=== PATIENT | female | born 1940 | race Caucasian/White ===

== ENCOUNTER → 2024-02-27 | Outpatient (CLI) | payer MEDICARE, OTHER ==
--- NOTE | 2024-02-27 16:57 | CA ---
Transthoracic Echo Report Name: Indy Blum Age: 83 Gender: F : 1940 Exam Date: 02/27/2024 16:15 Exam Location: [facility] Ht (in): 66 Wt (lb): 145 Ordering Physician: Kayce Babin MD Attending/Referring Phys: Replenisher Mayuri Schneider RDCS Procedure CPT: Indications: Z01.818 Cardiac Hx: Technical Quality: Fair Contrast 1: Total Dose (mL): Contrast 2: Total Dose (mL): MEASUREMENTS (Male / Female) Normal Values 2D ECHO LV Diastolic Diameter PLAX 4.7 cm 4.2 - 5.9 / 3.9 - 5.3 cm LV Systolic Diameter PLAX 3.2 cm IVS Diastolic Thickness 1.1 cm 0.6 - 1.0 / 0.6 - 0.9 cm LVPW Diastolic Thickness 1.2 cm 0.6 - 1.0 / 0.6 - 0.9 cm LV Relative Wall Thickness 0.5 RV Internal Dim ED PLAX 2.0 cm LVOT Diameter 1.8 cm LA Systolic Diameter LX 3.8 cm 3.0 - 4.0 / 2.7 - 3.8 cm LV Diastolic Volume MOD BP 20.5 cm??? 67 - 155 / 56 - 104 cm??? LV Systolic Volume MOD BP 8.5 cm??? 22 - 58 / 19 - 49 cm??? LV Ejection Fraction MOD BP 58.5 % >= 55 % LV Cardiac Index MOD BP 572.3 cm???/min???m??? LV Diastolic Volume MOD 4C 27.3 cm??? LV Systolic Volume MOD 4C 9.3 cm??? LV Ejection Fraction MOD 4C 66.2 % LV Cardiac Index MOD 4C 865.5 cm???/min???m??? LV Diastolic Length 4C 5.4 cm LV Systolic Length 4C 4.2 cm LV Diastolic Volume MOD 2C 13.8 cm??? LV Systolic Volume MOD 2C 7.4 cm??? LV Ejection Fraction MOD 2C 46.2 % LV Cardiac Index MOD 2C 304.4 cm???/min???m??? LV Diastolic Length 2C 4.8 cm LV Systolic Length 2C 4.5 cm M-MODE Aortic Root Diameter MM 3.8 cm LA Systolic Diameter MM 2.3 cm LA Ao Ratio MM 0.6 AV Cusp Separation MM 1.1 cm DOPPLER AV Peak Velocity 162.3 cm/s AV Peak Gradient 10.5 mmHg AV Mean Velocity 108.6 cm/s AV Mean Gradient 5.3 mmHg AV Velocity Time Integral 31.1 cm AI Peak Velocity 438.6 cm/s AI Peak Gradient 77.0 mmHg AI Pressure Half Time 858.7 ms LVOT Peak Velocity 115.3 cm/s LVOT Peak Gradient 5.3 mmHg LVOT Velocity Time Integral 23.7 cm LVOT Stroke Volume 62.9 cm??? LVOT Stroke Volume Index 36.0 ml/m??? LVOT Cardiac Index 3007.4 cm???/min???m??? AV Area Cont Eq vti 2.0 cm??? AV Area Cont Eq pk 1.9 cm??? Mitral E Point Velocity 73.4 cm/s Mitral A Point Velocity 116.6 cm/s Mitral E to A Ratio 0.6 MV Deceleration Time 285.6 ms MV E' Velocity 4.0 cm/s Mitral E to MV E' Ratio 18.5 TR Peak Velocity 276.4 cm/s TR Peak Gradient 30.6 mmHg Right Ventricular Systolic Press 40.6 mmHg FINDINGS Left Ventricle Left ventricular ejection fraction is estimated at 55-60 %. Mildly increased septal wall thickness. Mildly increased posterior wall thickness. Normal left ventricular systolic function with no obvious regional wall motion abnormalities. Left ventricular cavity size normal. Right Ventricle Normal right ventricular size and function. Mild pulmonary hypertension. Right Atrium Normal right atrial size. Left Atrium Normal left atrial size. Mitral Valve Structurally normal mitral valve. Trace to mild mitral regurgitation. No mitral stenosis. Moderate mitral annular calcification. Aortic Valve Trileaflet aortic valve. Diffuse thickening (sclerosis) of the aortic valve cusps without reduced excursion. Mild aortic regurgitation. Tricuspid Valve Structurally normal tricuspid valve. Mild tricuspid regurgitation. No tricuspid stenosis. Pulmonic Valve Structurally normal pulmonic valve. Trace pulmonic regurgitation. No pulmonic stenosis. Pericardium No pericardial or pleural effusion. Aorta Mild aortic dilatation at the level of the sinuses of valsalva (root). CONCLUSIONS Normal LV systolic function with an ejection fraction of 55-60% Mitral annular calcification Mild aortic regurgitation Previewed by: Dr. Michael Charles MD (Electronically Signed) Final Date: 27 February 2024 16:56
== END | disposition home or self-care (01) ==
LOC: RADECHMAIN 15:58
PROVIDERS: ATTEND Internal Medicine Hematology & Oncology
DX: Z01.818 Encounter for other preprocedural examination (principal); I34.81 Nonrheumatic mitral (valve) annulus calcification; I35.1 Nonrheumatic aortic (valve) insufficiency
CPT/HCPCS: 93306

== ENCOUNTER 2024-03-14 22:23 | Observation (INO) | payer MEDICARE, OTHER ==
[2024-03-14 23:01] LABS: Glucose,Whole Blood 145 mg/dL (70-110)
[2024-03-14] MEDS: SODIUM CHLORIDE 0.9% 1,000 ML IV STA (23:01)
--- NOTE | 2024-03-14 23:05 | ED ---
Nausea/Vomiting/Diarrhea HPI - General Chief complaint: Nausea/Vomiting/Diarrhea Stated complaint: Dehydration Time Seen by Provider: 03/14/24 23:04 Source: patient, family, RN notes reviewed Mode of arrival: wheelchair Limitations: no limitations - History of Present Illness Initial comments: Patient is an 83-year-old female presenting to the ER for evaluation of nausea, vomiting and diarrhea. 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 She is following up with Dr. Babin. Patient reports for the past couple of days she has felt extremely nauseous, lightheaded and dizzy. She states she has been unable to keep solids or liquids down for the past 24 to 48 hours. She also reports diarrhea which is made her bottom sore and she has been using clint. She has tried taking [id number] Zofran without relief. Patient is concerned she is dehydrated. Patient was instructed to come to the ER by Dr. Babin for evaluation. Patient denies any fevers, chills, chest pain, shortness of breath, abdominal pain, urinary complaints or peripheral edema. - Related Data Allergies Allergy/AdvReac Type Severity Reaction Status Date / Time codeine Allergy Rash/Hives Verified 03/14/24 22:30 Penicillins Allergy Rash/Hives Verified 03/14/24 22:30 Review of Systems ROS Statement: Those systems with pertinent positive or pertinent negative responses have been documented in the HPI. ROS Other: All systems not noted in ROS Statement are negative. Past Medical History Past Medical History: Cancer, Diabetes Mellitus, Hypertension Additional Past Medical History / Comment(s): lymphoma, History of Any Multi-Drug Resistant Organisms: None Reported Past Surgical History: Appendectomy Additional Past Surgical History / Comment(s): cateract both eyes,repaired AAA, Past Psychological History: No Psychological Hx Reported Smoking Status: Former smoker Past Alcohol Use History: None Reported Past Drug Use History: None Reported General Exam Limitations: no limitations General appearance: alert, in no apparent distress Respiratory exam: Present: normal lung sounds bilaterally. Absent: respiratory distress, wheezes, rales, rhonchi, stridor Cardiovascular Exam: Present: regular rate, normal rhythm, normal heart sounds. Absent: systolic murmur, diastolic murmur, rubs, gallop, clicks GI/Abdominal exam: Present: soft, normal bowel sounds. Absent: distended, tenderness, guarding, rebound, rigid Neurological exam: Present: alert, oriented X3, CN II-XII intact Skin exam: Present: warm, dry, intact, normal color. Absent: rash Course Vital Signs 03/14/24 03/14/24 03/15/24 22:24 23:15 01:34 Temperature 97.8 F Pulse Rate 85 83 91 Respiratory 17 Rate Blood Pressure 88/65 110/73 107/71 O2 Sat by Pulse 99 Oximetry - Reevaluation(s) Reevaluation #1: 03/15/24 00:01 Case discussed with [facility], Dr. Arango, for admission. Medical Decision Making - Medical Decision Making Was pt. sent in by a medical professional or institution (, PA, NUCLEAR EQUIPMENT OPERATOR, urgent care, hospital, or skilled nursing...) When possible be specific @ -Patient sent in by Dr. Babin for evaluation of nausea, vomiting and diarrhea. Did you speak to anyone other than the patient for history (EMS, parent, family, police, friend...)? What history was obtained from this source @ -No Did you review nursing and triage notes (agree or disagree)? Why? @ -I reviewed and agree with nursing and triage notes Were old charts reviewed (outside hosp., previous admission, EMS record, old EKG, old radiological studies, urgent care reports/EKG's, skilled nursing records)? Report findings @ -No old charts were reviewed Differential Diagnosis (chest pain, altered mental status, abdominal pain women, abdominal pain men, vaginal bleeding, weakness, fever, dyspnea, syncope, headache, dizziness, GI bleed, back pain, seizure, CVA, palpatations, mental health, musculoskeletal)? @ -Gastritis, cholecystitis, cannabis hyperemesis syndrome, pancreatitis, gastroenteritis, viral illness, diverticulitis, colitis, Crohn's disease, ulcerative colitis, IBS processes, to be all-inclusive EKG interpreted by me (3pts min.). @ -As above X-rays interpreted by me (1pt min.). @ -None done CT interpreted by me (1pt min.). @ -None done U/S interpreted by me (1pt. min.). @ -None done What testing was considered but not performed or refused? (CT, X-rays, U/S, labs)? Why? @ -Imaging deferred at this time as patient has no focal abdominal tenderness. Patient is agreeable. This was also discussed with Dr. Babin. What meds were considered but not given or refused? Why? @ -None Did you discuss the management of the patient with other professionals (professionals i.e. , PA, NUCLEAR EQUIPMENT OPERATOR, lab, RT, psych nurse, web content & social media manager, manager corporate communications, teacher, appeals officer, pillowcase folder)? Give summary @ -Admission was discussed with [facility], Dr. Arango. Was smoking cessation discussed for >3mins.? @ -No Was critical care preformed (if so, how long)? @ -No Were there social determinants of health that impacted care today? How? (Homelessness, low income, unemployed, alcoholism, drug addiction, transportation, low edu. Level, literacy, decrease access to med. care, intermediate, rehab)? @ -No Was there de-escalation of care discussed even if they declined (Discuss DNR or withdrawal of care, Hospice)? DNR status @ -No What co-morbidities impacted this encounter? (DM, HTN, Smoking, COPD, CAD, Cancer, CVA, ARF, Chemo, Hep., AIDS, mental health diagnosis, sleep apnea, morbid obesity)? @ -Cancer currently on chemotherapy Was patient admitted / discharged? Hospital course, mention meds given and route, prescriptions, significant lab abnormalities, going to OR and other pertinent info. @ -Admitted. 83-year-old female presented to ER for evaluation of nausea, vomiting diarrhea. Patient was sent in by oncology, Dr. Babin as she recently started chemotherapy on 03-11-2024. Upon rooming, history and physical exam completed. Patient is hypotensive at 88/65 vitals otherwise stable. There is no abdominal tenderness on exam. Normal bowel sounds with no rebound or guarding. CBC unimpressive. Sodium 135, potassium 4.3, chloride 102, carbon dioxide 19. JACKSON with a BUN of 43, creatinine 1.53 with a GFR of 31. Lactic of 3.2 for which patient received 2 L IV fluid bolus. AST 124, Alt 47, amylase 222, lipase 758 could be due to chemotherapy or dehydration. Viral swabs negative. C. difficile negative. Admission was considered and discussed with Dr. Arango, [facility], for IV hydration. Oncology on consult. Patient given IV Zofran, 2 L IV fluid bolus and started on maintenance fluid at 100 cc/h. Patient is agreeable for admission. Case discussed with the attending, Dr. Deluna. Undiagnosed new problem with uncertain prognosis? @ -No Drug Therapy requiring intensive monitoring for toxicity (Heparin, Nitro, Insulin, Cardizem)? @ -No Were any procedures done? @ -No Diagnosis/symptom? @ -JACKSON/nausea,vomiting,diarrhea Acute, or Chronic, or Acute on Chronic? @ -Acute Uncomplicated (without systemic symptoms) or Complicated (systemic symptoms)? @ -Complicated Side effects of treatment? @ -No Exacerbation, Progression, or Severe Exacerbation? @ -No Poses a threat to life or bodily function? How? (Chest pain, [place], [place], pneumonia, PE, COPD, DKA, ARF, appy, cholecystitis, CVA, Diverticulitis, Homicidal, Suicid al, threat to staff... and all critical care pts) @ -Yes, malignancy is life-threatening. - Lab Data Result diagrams: 03/14/24 22:45 03/14/24 22:45 Lab Results 03/14/24 03/14/24 03/14/24 Range/Units 22:45 22:45 22:45 WBC 3.8 (3.8-10.6) k/uL RBC 4.72 (3.80-5.40) m/uL Hgb 14.1 (11.4-16.0) gm/dL Hct 42.9 (34.0-46.0) % MCV 90.9 (80.0-100.0) fL MCH 29.8 (25.0-35.0) pg MCHC 32.8 (31.0-37.0) g/dL RDW 14.7 (11.5-15.5) % Plt Count 244 (150-450) k/uL MPV 7.8 Neutrophils % 80 % Lymphocytes % 16 % Monocytes % 1 % Eosinophils % 1 % Basophils % 1 % Neutrophils # 3.1 (1.3-7.7) k/uL Lymphocytes # 0.6 L (1.0-4.8) k/uL Monocytes # 0.1 (0-1.0) k/uL Eosinophils # 0.0 (0-0.7) k/uL Basophils # 0.0 (0-0.2) k/uL Sodium 135 L (137-145) mmol/L Potassium 4.3 (3.5-5.1) mmol/L Chloride 102 (98-107) mmol/L Carbon Dioxide 19 L (22-30) mmol/L Anion Gap 14 mmol/L BUN 43 H (7-17) mg/dL Creatinine 1.53 H (0.52-1.04) mg/dL Est GFR (CKD-EPI)AfAm 36 (>60 ml/min/1.73 sqM) Est GFR (CKD-EPI)NonAf 31 (>60 ml/min/1.73 sqM) Glucose 143 H (74-99) mg/dL POC Glucose (mg/dL) (70-110) mg/dL POC Glu Senior Budget Analyst ID Plasma Lactic Acid Zion 3.2 H* (0.7-2.0) mmol/L Calcium 8.9 (8.4-10.2) mg/dL Total Bilirubin 0.5 (0.2-1.3) mg/dL AST 124 H (14-36) U/L ALT 47 H (4-34) U/L Alkaline Phosphatase 90 (38-126) U/L Total Protein 6.8 (6.3-8.2) g/dL Albumin 3.9 (3.5-5.0) g/dL Amylase (30-110) U/L Lipase (23-300) U/L Influenza Type A (PCR) (Not Detectd) Influenza Type B (PCR) (Not Detectd) RSV (PCR) (Not Detectd) SARS-CoV-2 (PCR) (Not Detectd) 03/14/24 03/14/24 03/14/24 Range/Units 22:45 23:00 23:16 WBC (3.8-10.6) k/uL RBC (3.80-5.40) m/uL Hgb (11.4-16.0) gm/dL Hct (34.0-46.0) % MCV (80.0-100.0) fL MCH (25.0-35.0) pg MCHC (31.0-37.0) g/dL RDW (11.5-15.5) % Plt Count (150-450) k/uL MPV Neutrophils % % Lymphocytes % % Monocytes % % Eosinophils % % Basophils % % Neutrophils # (1.3-7.7) k/uL Lymphocytes # (1.0-4.8) k/uL Monocytes # (0-1.0) k/uL Eosinophils # (0-0.7) k/uL Basophils # (0-0.2) k/uL Sodium (137-145) mmol/L Potassium (3.5-5.1) mmol/L Chloride (98-107) mmol/L Carbon Dioxide (22-30) mmol/L Anion Gap mmol/L BUN (7-17) mg/dL Creatinine (0.52-1.04) mg/dL Est GFR (CKD-EPI)AfAm (>60 ml/min/1.73 sqM) Est GFR (CKD-EPI)NonAf (>60 ml/min/1.73 sqM) Glucose (74-99) mg/dL POC Glucose (mg/dL) 145 H (70-110) mg/dL POC Glu Senior Budget Analyst ID Jeff José Plasma Lactic Acid Zion (0.7-2.0) mmol/L Calcium (8.4-10.2) mg/dL Total Bilirubin (0.2-1.3) mg/dL AST (14-36) U/L ALT (4-34) U/L Alkaline Phosphatase (38-126) U/L Total Protein (6.3-8.2) g/dL Albumin (3.5-5.0) g/dL Amylase 222 H (30-110) U/L Lipase 758 H (23-300) U/L Influenza Type A (PCR) Not Detected (Not Detectd) Influenza Type B (PCR) Not Detected (Not Detectd) RSV (PCR) Not Detected (Not Detectd) SARS-CoV-2 (PCR) Not Detected (Not Detectd) - EKG Data -: EKG Interpreted by [place] EKG Comments: EKG taken at 23: 16 showing a sinus rhythm. No acute ST segment or T wave abnormalities. Normal axis. Ventricular rate 84, AR interval 140, QRS duration 76, QT/QTc 371/412. Disposition Clinical Impression: JACKSON (acute kidney injury) Disposition: ADMITTED IP TO THIS HOSP Condition: Stable Time of Disposition: 00:03
[2024-03-14] MEDS: ONDANSETRON 4 MG/2 ML VIAL IVP STA (23:12)
[2024-03-14 23:13] LABS: ALT 47 U/L (4-34); AST 124 U/L (14-36); African American GFR (CKD) 36 (>60 ml/min/1.73 sqM); Albumin 3.9 g/dL (3.5-5.0); Alkaline Phosphatase 90 U/L (38-126); Anion Gap 14 mmol/L; Blood Urea Nitrogen 43 mg/dL (7-17); Calcium 8.9 mg/dL (8.4-10.2); Carbon Dioxide 19 mmol/L (22-30); Chloride 102 mmol/L (98-107); Glucose 143 mg/dL (74-99); Non-African American GFR(CKD) 31 (>60 ml/min/1.73 sqM); Potassium 4.3 mmol/L (3.5-5.1); Sodium 135 mmol/L (137-145); Total Bilirubin 0.5 mg/dL (0.2-1.3); Total Protein 6.8 g/dL (6.3-8.2)
[2024-03-14] MEDS: SODIUM CHLORIDE 0.9% 1,000 ML IV ONE (23:14)
[2024-03-14 23:20] LABS: Basophils % (A) 1 %; Eosinophils % (A) 1 %; HCT 42.9 % (34.0-46.0); HGB 14.1 gm/dL (11.4-16.0); Lymphocytes # (A) 0.6 k/uL (1.0-4.8); Lymphocytes % (A) 16 %; MCH 29.8 pg (25.0-35.0); MCHC 32.8 g/dL (31.0-37.0); MCV 90.9 fL (80.0-100.0); Mean Platelet Volume 7.8; Monocytes # (A) 0.1 k/uL (0-1.0); Monocytes % (A) 1 %; Neutrophils # (A) 3.1 k/uL (1.3-7.7); Neutrophils % (A) 80 %; Platelet Count 244 k/uL (150-450); RBC 4.72 m/uL (3.80-5.40); RDW 14.7 % (11.5-15.5); WBC 3.8 k/uL (3.8-10.6)
[2024-03-14] MEDS ORDERED: NALOXONE 0.4 MG/ML 1 ML VIAL IV PRN (23:56)
[2024-03-15] MEDS: SODIUM CHLORIDE 0.9% 1,000 ML IV SCH (00:25)
[2024-03-15 01:22] LABS: Amylase 222 U/L (30-110); Lipase 758 U/L (23-300)
[2024-03-15] MEDS: ACETAMINOPHEN TAB 325 MG TAB PO PRN (03:18)
--- NOTE | 2024-03-15 07:17 | P.HPIM ---
History of Present Illness Patient is a pleasant 83 years old female with past medical history of nasal cancer, she follows up with Dr. Babin, she started her first chemotherapy of 1 day duration on 03 days ago on 03/11 This is followed by diarrhea of 1 day duration all day long yesterday, she tried little diet and she threw up right away, no abdominal pain, Because of the frequent diarrhea she has some excoriation in her skin and some little blood in it from the skin as the patient and daughter at bedside explained. This morning diarrhea slowed down so far. She denies any chest pain or dyspnea or coughing. No urinary complaint. Gait is normal for her She gets sometimes headache She denies smoking alcohol or illicit drugs Patient is afebrile and hemodynamically stable CBC, is unremarkable. Creatinine slightly elevated of 1.5 Liver enzymes mildly elevated Lipase mildly elevated but no suspicion ofPancreatitis EKG showing sinus rhythm at [address]-T changes, QTc 412 In emergency room patient received 2 L of normal saline and then continued at 100 mL/h Review of Systems Review of systems CONSTITUTIONAL: No fever, no malaise, no fatigue. HEENT: No recent visual problems or hearing problems. Denied any sore throat. CARDIOVASCULAR: No orthopnea, PND, no palpitations, no syncope. PULMONARY: No shortness of breath, no cough, no hemoptysis. GASTROINTESTINAL: no nausea, no vomiting, no abdominal pain. Normoactive bowel sounds. NEUROLOGICAL: No headaches, no weakness, no numbness. HEMATOLOGICAL: Denies any bleeding or petechiae. GENITOURINARY: Denies any burning micturition, frequency, or urgency. MUSCULOSKELETAL/RHEUMATOLOGICAL: Denies any joint pain, swelling, or any muscle pain. ENDOCRINE: Denies any polyuria or polydipsia. Past Medical History Past Medical History: Cancer, Diabetes Mellitus, Hypertension Additional Past Medical History / Comment(s): lymphoma, History of Any Multi-Drug Resistant Organisms: None Reported Past Surgical History: Appendectomy Additional Past Surgical History / Comment(s): cateract both eyes,repaired AAA, Past Psychological History: No Psychological Hx Reported Smoking Status: Former smoker Past Alcohol Use History: None Reported Past Drug Use History: None Reported Medications and Allergies Allergies Allergy/AdvReac Type Severity Reaction Status Date / Time codeine Allergy Rash/Hives Verified 03/14/24 22:30 Penicillins Allergy Rash/Hives Verified 03/14/24 22:30 Physical Exam Vitals: Vital Signs Temp Pulse Resp BP Pulse Ox 03/15/24 06:30 88 17 104/73 96 03/15/24 04:54 88 18 104/75 96 03/15/24 03:20 98.1 F 91 18 98/67 95 03/15/24 01:34 91 107/71 03/14/24 23:15 83 110/73 03/14/24 22:24 97.8 F 85 17 88/65 99 Intake and Output 03/14/24 03/15/24 03/15/24 22:59 06:59 14:59 Other: Weight 64.864 kg GENERAL: The patient is alert and oriented x3, not in any acute distress. Well developed, well nourished. HEENT: Pupils are round and equally reacting to light. EOMI. No scleral icterus. No conjunctival pallor. Normocephalic, atraumatic. No pharyngeal erythema. No thyromegaly. CARDIOVASCULAR: S1 and S2 present. No murmurs, rubs, or gallops. PULMONARY: Chest is clear to auscultation, no wheezing , no crackles. ABDOMEN: Soft, nontender, nondistended, normoactive bowel sounds. No palpable organomegaly. MUSCULOSKELETAL: No joint swelling or deformity. EXTREMITIES: No cyanosis, clubbing, or pedal edema. NEUROLOGICAL: Gross neurological examination did not reveal any focal deficits. SKIN: No rashes. no petechiae. Results CBC & Chem 7: 03/14/24 22:45 03/14/24 22:45 Labs: Abnormal Lab Results - Last 24 Hours (Table) 03/14/24 03/14/24 03/14/24 Range/Units 22:45 22:45 22:45 Lymphocytes # 0.6 L (1.0-4.8) k/uL Sodium 135 L (137-145) mmol/L Carbon Dioxide 19 L (22-30) mmol/L BUN 43 H (7-17) mg/dL Creatinine 1.53 H (0.52-1.04) mg/dL Glucose 143 H (74-99) mg/dL POC Glucose (mg/dL) (70-110) mg/dL Plasma Lactic Acid Zion 3.2 H* (0.7-2.0) mmol/L AST 124 H (14-36) U/L ALT 47 H (4-34) U/L Amylase (30-110) U/L Lipase (23-300) U/L 03/14/24 03/14/24 Range/Units 22:45 23:00 Lymphocytes # (1.0-4.8) k/uL Sodium (137-145) mmol/L Carbon Dioxide (22-30) mmol/L BUN (7-17) mg/dL Creatinine (0.52-1.04) mg/dL Glucose (74-99) mg/dL POC Glucose (mg/dL) 145 H (70-110) mg/dL Plasma Lactic Acid Zion (0.7-2.0) mmol/L AST (14-36) U/L ALT (4-34) U/L Amylase 222 H (30-110) U/L Lipase 758 H (23-300) U/L Assessment and Plan Assessment: Possible acute gastroenteritis and diarrhea, chemotherapy related. The suspicion of C. difficile is low but not entirely excluded Nasal cancer s/p first chemotherapy on 03/11 at Acute kidney injury Dehydration secondary to above Mild transaminitis History of AAA, follow-up with song and dance performer as an outpatient, not an active issue Elevated lactic acid came back to normal Plan: Continue with IV hydration, normal saline at 75 mL/h Follow-up creatinine Check for C. difficile Consult hematology/oncology team Labs and medication were reviewed.. Continue same treatment. Continue with symptomatic treatment. Resume home medication. Monitor labs and vitals. DVT and GI prophylaxis. Further recommendations as per clinical course of the patient DVT prophylaxis: Subcutaneous heparin GI Prophylaxis: Pepcid Prognosis is guarded
[2024-03-15] MEDS: FAMOTIDINE 20 MG/2 ML VIAL IV SCH (08:57)
[2024-03-15] MEDS: HEPARIN SODIUM,PORCINE 5,000 UNIT/ML 1 ML VIAL SQ SCH (08:57)
[2024-03-15 13:29] LABS: ALT 38 U/L (4-34); AST 93 U/L (14-36); African American GFR (CKD) 61 (>60 ml/min/1.73 sqM); Albumin/Globulin Ratio 1.2; Alkaline Phosphatase 78 U/L (38-126); Anion Gap 11 mmol/L; Blood Urea Nitrogen 32 mg/dL (7-17); Carbon Dioxide 16 mmol/L (22-30); Chloride 111 mmol/L (98-107); Globulin 2.6 g/dL; Glucose 114 mg/dL (74-99); Non-African American GFR(CKD) 53 (>60 ml/min/1.73 sqM); Phosphorus 3.1 mg/dL (2.5-4.5); Sodium 138 mmol/L (137-145); Total Bilirubin 0.4 mg/dL (0.2-1.3); Total Protein 5.6 g/dL (6.3-8.2); Uric Acid 7.1 mg/dL (3.7-7.4)
[2024-03-15] MEDS: ONDANSETRON 4 MG/2 ML VIAL IVP PRN (13:43)
[2024-03-15] MEDS: CHOLESTYRAMINE (WITH SUGAR) 4 GM PACKET PO SCH (15:05)
[2024-03-15] MEDS: LOPERAMIDE 2 MG CAP PO PRN (17:35)
--- NOTE | 2024-03-15 20:54 | P.CONS ---
History of Present Illness - Reason for Consult Consult date: 03/15/24 n/v/d, JACKSON Requesting physician: So Foley - Chief Complaint n/v/d - History of Present Illness Patient is a 83 year old female with a history of lymphoma, who follows with Dr. Babin. She initially presented with enlarging right nasal mass for about 6 weeks duration, she had CT facial bone on 01/15/2024 which showed 3.9x2.4x2.9 cm mass along right nasal soft tissue extending into right nasal cavity. She was then referred to Dr Melendez, and initial biopsy was not diagnostic. 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 On 02/19/2024, she had a PET scan showed suspicious uptake in the mass seen on CT, otherwise negative. Ideally systemic chemo and radiation are considered, systemic therapy is L asparaginase based which could be associated with significant toxicities in elderly people,she is however,physically very fit and active. The other option would be just radiation therapy. After further discussion, current plan is 2 cycles of L asparaginase+oxaliplatin/gemzar followed by radiation and then 2 more cycles of chemo, if pt tolerates well. S/p cycle 1, day 1 of Oncaspar/oxaliplatin/gemzar on 03/11/24 Patient reports yesterday she began having diarrhea and nausea and associated decreased oral intake causing her to present to the ER for further evaluation. Diarrhea has since resolved, but did have 1 episode of n/v/d after eating a small lunch. Denies abd pain, fever and chills. Labs reviewed, WBC 3.8, ANC 3.1, hemoglobin 14.1, platelets 244,000. Creatinine elevated at 1.53, GFR 31. Lactic acid was also noted to be elevated at 3.2, today 1.9. Bilirubin 0.5, AST 124, ALT 47, ALP 90. Amylase 222, lipase 758. Repeat CMP today showing improvement in LFTs and kidney function. Patient was given 2 L saline bolus in the ER and continues on continuous IV hydration. Patient is afebrile, 96% on room air. C. difficile and viral panel negative. Review of Systems 10 point ROS is negative except as stated in the HPI Past Medical History Past Medical History: Cancer, Diabetes Mellitus, Hypertension Additional Past Medical History / Comment(s): lymphoma, History of Any Multi-Drug Resistant Organisms: None Reported Past Surgical History: Appendectomy Additional Past Surgical History / Comment(s): cateract both eyes,repaired AAA, Past Psychological History: No Psychological Hx Reported Smoking Status: Former smoker Past Alcohol Use History: None Reported Past Drug Use History: None Reported - Past Family History Mother Family Medical History: Cancer Additional Family Medical History / Comment(s): breast cancer Father Family Medical History: Hypertension Additional Family Medical History / Comment(s): cataracts Son(s) Family Medical History: Cancer Additional Family Medical History / Comment(s): tonsil cancer Medications and Allergies Home Medications Medication Instructions Recorded Confirmed Type Aspirin 81 mg PO DAILY 03/15/24 03/15/24 History Azelastine HCl [Astelin Nasal 1 spray EA NOSTRIL HS PRN 03/15/24 03/15/24 History [place]] Cholecalciferol [Vitamin D3 (10 10 mcg PO DAILY 03/15/24 03/15/24 History Mcg = 400 Iu)] Eye Health Complex 1 tab PO BID 03/15/24 03/15/24 History Healthy Hair & Nails Complete 1 tab PO DAILY 03/15/24 03/15/24 History Linagliptin [Tradjenta] 5 mg PO DAILY 03/15/24 03/15/24 History Losartan Potassium [Cozaar] 100 mg PO DAILY 03/15/24 03/15/24 History Metoprolol Tartrate [Lopressor] 25 mg PO DAILY 03/15/24 03/15/24 History Omeprazole [PriLOSEC] 40 mg PO DAILY 03/15/24 03/15/24 History Ondansetron [Zofran] 4 - 8 mg PO Q4H PRN MDD 8 tablets 03/15/24 03/15/24 History Allergies Allergy/AdvReac Type Severity Reaction Status Date / Time codeine Allergy Rash/Hives Verified 03/15/24 07:56 Penicillins Allergy Rash/Hives Verified 03/15/24 07:56 Physical Exam Vitals: Vital Signs Temp Pulse Pulse Resp BP BP Pulse Ox 03/15/24 08:20 98 F 87 16 106/77 96 03/15/24 08:00 98.7 F 79 110/71 96 03/15/24 06:30 88 17 104/73 96 03/15/24 04:54 88 18 104/75 96 03/15/24 03:20 98.1 F 91 18 98/67 95 03/15/24 01:34 91 107/71 03/14/24 23:15 83 110/73 03/14/24 22:24 97.8 F 85 17 88/65 99 Intake and Output 03/14/24 03/15/24 03/15/24 22:59 06:59 14:59 Other: Weight 64.864 kg - Constitutional General appearance: no acute distress - EENT Eyes: anicteric sclerae, EOMI ENT: hearing grossly normal - Respiratory breathing is even and unlabored - Cardiovascular well perfused - Gastrointestinal General gastrointestinal: soft, no tenderness - Integumentary Integumentary: no cyanotic, no jaundiced - Psychiatric Psychiatric: A&O x's 3 Results CBC & Chem 7: 03/14/24 22:45 03/15/24 12:57 Labs: Abnormal Lab Results - Last 24 Hours (Table) 03/14/24 03/14/24 03/14/24 Range/Units 22:45 22:45 22:45 Lymphocytes # 0.6 L (1.0-4.8) k/uL Sodium 135 L (137-145) mmol/L Carbon Dioxide 19 L (22-30) mmol/L BUN 43 H (7-17) mg/dL Creatinine 1.53 H (0.52-1.04) mg/dL Glucose 143 H (74-99) mg/dL POC Glucose (mg/dL) (70-110) mg/dL Plasma Lactic Acid [place] 3.2 H* (0.7-2.0) mmol/L AST 124 H (14-36) U/L ALT 47 H (4-34) U/L Amylase (30-110) U/L Lipase (23-300) U/L 03/14/24 03/14/24 Range/Units 22:45 23:00 Lymphocytes # (1.0-4.8) k/uL Sodium (137-145) mmol/L Carbon Dioxide (22-30) mmol/L BUN (7-17) mg/dL Creatinine (0.52-1.04) mg/dL Glucose (74-99) mg/dL POC Glucose (mg/dL) 145 H (70-110) mg/dL Plasma Lactic Acid [place] (0.7-2.0) mmol/L AST (14-36) U/L ALT (4-34) U/L Amylase 222 H (30-110) U/L Lipase 758 H (23-300) U/L Assessment and Plan (1) JACKSON (acute kidney injury) Current Visit: Yes Status: Acute Code(s): N17.9 - ACUTE KIDNEY FAILURE, UNSPECIFIED SNOMED Code(s): 35923382 (2) Transaminitis Current Visit: Yes Status: Acute Code(s): R74.01 - ELEVATION OF LEVELS OF LIVER TRANSAMINASE LEVELS SNOMED Code(s): 948047877 (3) Chemotherapy induced diarrhea Current Visit: Yes Status: Acute Code(s): K52.1 - TOXIC GASTROENTERITIS AND COLITIS; T45.1X5A - ADVERSE EFFECT OF ANTINEOPLASTIC AND IMMUNOSUP DRUGS, INIT SNOMED Code(s): 836352789 (4) T-cell lymphoma Current Visit: Yes Status: Acute Code(s): C85.90 - NON-HODGKIN LYMPHOMA, UNSPECIFIED, UNSPECIFIED SITE SNOMED Code(s): 809710725 Plan: Chemo induced n/v/d: Presented c/o diarrhea and nausea and associated decreased oral intake. Diarrhea was improving, but did have 1 episode of n/v/d after eating a small lunch today. Denies abd pain. Pt afebrile -WBC 3.8, ANC 3.1, hemoglobin 14.1, platelets 244,000. Creatinine elevated at 1.53, GFR 31. Lactic acid was also noted to be elevated at 3.2, today 1.9. Bilirubin 0.5, AST 124, ALT 47, ALP 90. Amylase 222, lipase 758. Repeat CMP today showing improvement in LFTs and kidney function. -TLS labs negative -C. difficile and viral panel negative. -Continue IV hydration. Anti-emetics and antidiarrheals ordered -Diet changed to full liquids after noted exacerbation of GI symptoms. Slowly advanced diet as tolerated, and as symptoms and LFTs/pancreatic enzymes improve -Repeat CMP, lipase and amylase in the morning Extranodal NK/T-cell Lymphoma: -Oncology history as dictated in the HPI -S/p cycle 1, day 1 of Oncaspar/oxaliplatin/gemzar on 03/11/24 -Began having increased n/v/d. Denies abd pain. Labs showed transaminitis and elevated amylase and lipase, which can be potential side effect of Oncaspar -Blood counts stable -Will continue to monitor labs/course of hospitalization. Treatment will be on hold until adequately recovered from acute condition. Will further discuss with her oncologist, Dr. Babin regarding treatment recommendations moving forward
[2024-03-16] MEDS: ONDANSETRON 4 MG/2 ML VIAL IVP PRN (00:15)
[2024-03-16 09:48] LABS: HCT 36.2 % (37.2-46.3); HGB 11.4 g/dL (12.0-15.0); MCH 29.1 pg (27.0-32.0); MCHC 31.5 g/dL (32.0-37.0); MCV 92.3 FL (80.0-97.0); Mean Platelet Volume 11.2 FL (9.5-12.2); NRBC Per 100 WBC 0 X 10*3/uL (0.00-0.01); Platelet Count 181 X 10*3/uL (140-440); RBC 3.92 X 10*6/uL (4.10-5.20); RDW 15.7 % (11.5-14.5); WBC 2.71 X 10*3/uL (4.50-10.00)
[2024-03-16] MEDS ORDERED: CHOLESTYRAMINE (WITH SUGAR) 4 GM PACKET PO SCH (10:00)
[2024-03-16 10:13] LABS: ALT 38 U/L (8-44); AST 89 U/L (13-35); Albumin 3.2 g/dL (3.8-4.9); Albumin/Globulin Ratio 1.33 Ratio (1.60-3.17); Alkaline Phosphatase 70 U/L (41-126); Amylase 158 U/L (23-121); BUN/Creat Ratio 22.27 Ratio (12.00-20.00); Blood Urea Nitrogen 24.5 mg/dL (9.0-27.0); Carbon Dioxide 18.8 mmol/L (21.6-31.8); Chloride 112 mmol/L (96-109); Globulin 2.4 g/dL (1.6-3.3); Glucose 142 mg/dL (70-110); Lipase 106 U/L (14-63); Potassium 4.8 mmol/L (3.5-5.5); Sodium 140 mmol/L (135-145); Total Bilirubin 0.3 mg/dL (0.3-1.2); Total Protein 5.6 g/dL (6.2-8.2)
[2024-03-16 11:03] LABS: Acanthocytes 2+ (None Seen); Basophils # (A) 0.02 X 10*3/uL (0.00-0.10); Basophils % (A) 0.7 %; Eosinophils # (A) 0.05 X 10*3/uL (0.04-0.35); Eosinophils % (A) 1.8 %; Lymphocytes # (A) 0.33 X 10*3/uL (0.90-5.00); Lymphocytes % (A) 12.2 %; Monocytes # (A) 0.02 X 10*3/uL (0.20-1.00); Monocytes % (A) 0.7 %; Neutrophils # (A) 2.27 X 10*3/uL (1.80-7.70); Neutrophils % (A) 83.9 %
[2024-03-16] MEDS: DIPHENOX-ATROP 2.5-0.025 MG 1 EACH TAB PO PRN (12:37)
--- NOTE | 2024-03-16 21:17 | P.PN ---
Subjective Progress Note Date: 03/16/24 Patient evaluated today in follow-up in the medical floor with him at the bedside. She continues to report liquid stools with 5 episodes overnight and 1 so far today. She did have an episode of emesis this morning following breakfast. She is currently on a clear liquid diet however she is requesting toast and okay with this.. C. difficile testing was negative. Patient was not able to tolerate the caution. She will continue on Imodium and Lomotil. Once her stools have softened patient will be discharged home. Review of Systems Constitutional: Denied any fatigue denied any fever. Cardio vascular: denied any chest pain, palpitations Gastrointestinal: reports nausea and diarrhea Pulmonary: Denied any shortness of breath cough Neurologic denied any new focal deficits All inpatient medications were reviewed and appropriate changes in these medications as dictated in the interval history and assessment and plan. PHYSICAL EXAMINATION: GENERAL: The patient is alert and oriented x3, not in any acute distress. Well developed, well nourished. HEENT: Pupils are round and equally reacting to light. EOMI. No scleral icterus. No conjunctival pallor. Normocephalic, atraumatic. No pharyngeal erythema. No thyromegaly. CARDIOVASCULAR: S1 and S2 present. No murmurs, rubs, or gallops. PULMONARY: Chest is clear to auscultation, no wheezing or crackles. ABDOMEN: Soft, nontender, nondistended, normoactive bowel sounds. No palpable organomegaly. MUSCULOSKELETAL: No joint swelling or deformity. EXTREMITIES: No cyanosis, clubbing, or pedal edema. NEUROLOGICAL: Gross neurological examination did not reveal any focal deficits. SKIN: No rashes. Assessment and plan Possible acute gastroenteritis and diarrhea, chemotherapy related. The suspicion of C. difficile is low but not entirely excluded Nasal cancer s/p first chemotherapy on 03/11 at Acute kidney injury Dehydration secondary to above Mild transaminitis History of AAA, follow-up with professional security officer as an outpatient, not an active issue Elevated lactic acid came back to normal GI prophylaxis No code Plan Continue normal saline Continue Lomotil and Imodium [id number] Patient may have told to continue with clear liquids advance as tolerated Possible discharge home in the next 24 hours if patient's liquid stools impro sherif. Oncology following The impression and plan of care has been dictated by Lashawn Blakely, Nurse Practitioner as directed. Dr. Hola MD I have performed a history and physical examination and medical decision making of this patient, discussed the same with the dictator, and agree with the d ictators assessment and plan as written, documented as a scribe. Based on total visit time, I have performed more than 50% of this visit. Objective - Vital Signs Vital signs: Vital Signs Temp 97.9 F 03/16/24 13:29 Pulse 82 03/16/24 13:29 Resp 14 03/16/24 13:29 BP 147/82 03/16/24 13:29 Pulse Ox 95 03/16/24 13:29 FiO2 Intake & Output 03/15/24 03/16/24 03/16/24 18:59 06:59 18:59 Intake Total 675 240 Output Total 70 Balance 675 -70 240 Weight 64.864 kg Intake: Intake, IV Titration 675 Amount Sodium Chloride 0.9% 1, 675 000 ml @ 75 mls/hr IV . [id number] [facility] Rx#:[id number] Oral 240 Output: Emesis 70 Other: Voiding Method Toilet Toilet Toilet Diaper Diaper Diaper Incontinent Incontinent Incontinent # Voids 1 5 # Bowel Movements 1 - Labs CBC & Chem 7: 03/16/24 03:31 03/16/24 03:31 Labs: Abnormal Lab Results - Last 24 Hours (Table) 03/16/24 03/16/24 Range/Units 03:31 03:31 WBC 2.71 L (4.50-10.00) X 10*3/uL RBC 3.92 L (4.10-5.20) X 10*6/uL Hgb 11.4 L (12.0-15.0) g/dL Hct 36.2 L (37.2-46.3) % MCHC 31.5 L (32.0-37.0) g/dL RDW 15.7 H (11.5-14.5) % Lymphocytes # 0.33 L (0.90-5.00) X 10*3/uL Monocytes # 0.02 L (0.20-1.00) X 10*3/uL Acanthocytes (Spur) 2+ A (None Seen) Chloride 112 H (96-109) mmol/L Carbon Dioxide 18.8 L (21.6-31.8) mmol/L Est GFR (CKD-EPI) 49 L (>=60) BUN/Creatinine Ratio 22.27 H (12.00-20.00) Ratio Glucose 142 H (70-110) mg/dL Calcium 8.0 L (8.7-10.3) mg/dL AST 89 H (13-35) U/L Total Protein 5.6 L (6.2-8.2) g/dL Albumin 3.2 L (3.8-4.9) g/dL Albumin/Globulin Ratio 1.33 L (1.60-3.17) Ratio Amylase 158 H (23-121) U/L Lipase 106 H (14-63) U/L Assessment and Plan Time with Patient: Less than 30
[2024-03-17 10:28] LABS: Magnesium 1.3 mg/dL (1.5-2.4)
[2024-03-17 10:31] LABS: ALT 43 U/L (8-44); AST 96 U/L (13-35); Albumin 3.1 g/dL (3.8-4.9); Albumin/Globulin Ratio 1.48 Ratio (1.60-3.17); Alkaline Phosphatase 68 U/L (41-126); BUN/Creat Ratio 17.33 Ratio (12.00-20.00); Blood Urea Nitrogen 15.6 mg/dL (9.0-27.0); Calcium 7.9 mg/dL (8.7-10.3); Carbon Dioxide 22.3 mmol/L (21.6-31.8); Chloride 109 mmol/L (96-109); Globulin 2.1 g/dL (1.6-3.3); Glucose 90 mg/dL (70-110); Potassium 4.4 mmol/L (3.5-5.5); Sodium 140 mmol/L (135-145); Total Bilirubin 0.7 mg/dL (0.3-1.2); Total Protein 5.2 g/dL (6.2-8.2)
[2024-03-17] MEDS ORDERED: Magnesium Replacement Protocol 1 EACH MISC MISCELLANE PRN (11:48)
[2024-03-17] MEDS: MAGNESIUM SULFATE-D5W PMX 1 GM in DEXTROSE/WATER 1 100ML.BAG IVPB SCH (11:55)
[2024-03-17 13:55] VITALS: BP 147/94; PULSE 89; RESP 16; TEMP 97.9
[2024-03-17 14:23] LABS: Basophils # (M) 0 X 10*3/uL (0.00-0.10); Eosinophils # (M) 0.14 X 10*3/uL (0.04-0.35); HCT 33.5 % (37.2-46.3); Lymphocytes # (M) 0.52 X 10*3/uL (0.90-5.00); MCH 28.9 pg (27.0-32.0); MCHC 32.8 g/dL (32.0-37.0); MCV 87.9 FL (80.0-97.0); Mean Platelet Volume 10.9 FL (9.5-12.2); Monocytes # (M) 0.06 X 10*3/uL (0.20-1.00); NRBC Per 100 WBC 0 X 10*3/uL (0.00-0.01); Neutrophils # (M) 0.86 X 10*3/uL (1.80-7.70); Neutrophils % (M) 54 %; Platelet Count 139 X 10*3/uL (140-440); RBC 3.81 X 10*6/uL (4.10-5.20); RDW 15.3 % (11.5-14.5); Smudge Cells Present (Absent); WBC 1.59 X 10*3/uL (4.50-10.00)
--- NOTE | 2024-03-17 14:58 | P.PN ---
Subjective Progress Note Date: 03/17/24 Principal diagnosis: JACKSON. NK T cell lymphoma In f/u pt reports overall feeling fairly well. Tolerating soup and toast, no N,V, abd pain, she had soft BM. No F or new pain to report Objective - Vital Signs Vital signs: Vital Signs Temp 97.9 F 03/17/24 13:36 Pulse 89 03/17/24 13:36 Resp 16 03/17/24 13:36 BP 147/94 03/17/24 13:36 Pulse Ox 95 03/17/24 13:36 FiO2 Intake & Output 03/16/24 03/17/24 03/17/24 18:59 06:59 18:59 Intake Total 1170 590 Balance 1170 590 Intake: Intake, IV Titration 900 Amount Sodium Chloride 0.9% 1, 900 000 ml @ 75 mls/hr IV . [id number] [facility] Rx#:[id number] Oral 270 590 Other: Voiding Method Toilet Toilet Toilet Diaper Diaper Diaper Incontinent Incontinent Incontinent # Voids 2 5 # Bowel Movements 2 - Constitutional General appearance: Present: average body habitus, cooperative, no acute distress - EENT Eyes: Present: anicteric sclerae, EOMI ENT: Present: hearing grossly normal, normal oropharynx - Respiratory Respiratory: bilateral: CTA - Cardiovascular Rhythm: regular Heart sounds: normal: S1, S2 Abnormal Heart Sounds: Absent: systolic murmur, diastolic murmur, rub, S3 Gallop, S4 Gallop, click, other - Peripheral edema leg Peripheral Edema: bilateral: None - Gastrointestinal General gastrointestinal: Present: normal bowel sounds, soft - Integumentary Integumentary: Present: normal - Neurologic Neurologic: Present: CNII-XII intact - Musculoskeletal Musculoskeletal: Present: strength equal bilaterally - Psychiatric Psychiatric: Present: A&O x's 3, appropriate affect, intact judgment & insight - Labs CBC & Chem 7: 03/17/24 05:19 03/17/24 05:19 Labs: Abnormal Lab Results - Last 24 Hours (Table) 03/17/24 03/17/24 Range/Units 05:19 05:19 WBC 1.59 L (4.50-10.00) X 10*3/uL RBC 3.81 L (4.10-5.20) X 10*6/uL Hgb 11.0 L (12.0-15.0) g/dL Hct 33.5 L (37.2-46.3) % RDW 15.3 H (11.5-14.5) % Plt Count 139 L (140-440) X 10*3/uL Neutrophils # (Manual) 0.86 L (1.80-7.70) X 10*3/uL Lymphocytes # (Manual) 0.52 L (0.90-5.00) X 10*3/uL Monocytes # (Manual) 0.06 L (0.20-1.00) X 10*3/uL Smudge Cells Present A (Absent) Calcium 7.9 L (8.7-10.3) mg/dL Magnesium 1.3 L (1.5-2.4) mg/dL AST 96 H (13-35) U/L Total Protein 5.2 L (6.2-8.2) g/dL Albumin 3.1 L (3.8-4.9) g/dL Albumin/Globulin Ratio 1.48 L (1.60-3.17) Ratio Assessment and Plan (1) Chemotherapy-induced nausea and vomiting Current Visit: Yes Status: Acute Priority: High Code(s): R11.2 - NAUSEA WITH VOMITING, UNSPECIFIED; T45.1X5A - ADVERSE EFFECT OF ANTINEOPLASTIC AND IMMUNOSUP DRUGS, INIT SNOMED Code(s): 65439500 (2) Chemotherapy induced diarrhea Current Visit: Yes Status: Resolved Priority: High Code(s): K52.1 - TOXIC GASTROENTERITIS AND COLITIS; T45.1X5A - ADVERSE EFFECT OF ANTINEOPLASTIC AND IMMUNOSUP DRUGS, INIT SNOMED Code(s): 790548268 (3) JACKSON (acute kidney injury) Current Visit: Yes Status: Resolved Priority: High Code(s): N17.9 - ACUTE KIDNEY FAILURE, UNSPECIFIED SNOMED Code(s): 04297748 (4) Transaminitis Current Visit: Yes Status: Acute Priority: Medium Code(s): R74.01 - ELEVATION OF LEVELS OF LIVER TRANSAMINASE LEVELS SNOMED Code(s): 282205506 (5) T-cell lymphoma Current Visit: Yes Status: Acute Priority: Medium Code(s): C85.90 - NON- HODGKIN LYMPHOMA, UNSPECIFIED, UNSPECIFIED SITE SNOMED Code(s): 279459089 Plan: Chemo induced N,V,D -Improved with hydration and supportive medications -C. difficile and viral panel were negative. -Pt tolerative reg diet this AM without c/o. -Magnesium being replaced today -Pancreatitis 2/2 treatment. Sheryl/Lip have come down nicely in just a few days. No abd c/o, tolerating reg diet -Pt has appt in ofc tomorrow afternoon. Order sent to recheck CMP, mag and pancreatic enzymes Extranodal NK/T-cell Lymphoma: -Oncology history as dictated in consult -S/p cycle 1, day 1 of pegasaspargase/oxaliplatin/gemzar on 03/11/24. -N,V,D from treatment decreased oral intake, leading to dehydration, then JACKSON. Elevated LFTs and pancreatic enzymes can be from dehydration as well as SE of pe gasaspargase. All labs improved with hydration, electrolyte replacement and supportive meds. -Blood counts stable -Message sent to primary Onc regarding treatment modifications and when to resume treatment. Pt is due for treatment tomorrow, told her to come to appt for lab check. She verbalized understanding Discussed case with Attending LEVELER HELPER and RN
--- NOTE | 2024-03-17 16:01 | P.DS ---
Providers Date of admission: 03/14/24 23:47 Attending physician: Vasquez Arango MD Consults: 03/14/24 23:56 Consult Physician Urgent Consulting Provider: Kayce Babin Consult Reason/Comments: N/V/D/ Pradip Do you want consulting provider notified?: Yes, Notify in am Primary care physician: Erich Malone [facility] Hospital Course: Final Diagnosis Possible acute gastroenteritis and diarrhea, chemotherapy related. C. difficile negative Nasal cancer s/p first chemotherapy on 03/11 at Acute kidney injury Dehydration secondary to above Hypomagnesemia secondary to diarrhea Mild transaminitis History of AAA, follow-up with tread cutter as an outpatient, not an active issue Elevated lactic acid came back to normal Discharge Disposition Stable for discharge home. Her electrolytes have normalized. Magnesium was slightly low at 1.3 she will receive 3 bags of IV magnesium prior to discharge. Patient is a follow-up appointment already scheduled at Dr. Babin's office tomorrow on March 18 which to she will keep and they will repeat blood work in the office. Hospital Course Patient is a pleasant 83 years old female with past medical history of nasal cancer, she follows up with Dr. Babin, she started her first chemotherapy of 1 day duration on 03 days ago on 03/11 This is followed by diarrhea of 1 day duration all day long yesterday, she tried little diet and she threw up right away, no abdominal pain, Because of the frequent diarrhea she has some excoriation in her skin and some little blood in it from the skin as the patient and daughter at bedside explained. This morning diarrhea slowed down so far. She denies any chest pain or dyspnea or coughing. No urinary complaint. Gait is normal for her She gets sometimes headache She denies smoking alcohol or illicit drugs Patient is afebrile and hemodynamically stable CBC, is unremarkable. Creatinine slightly elevated of 1.5 Liver enzymes mildly elevated Lipase mildly elevated but no suspicion ofPancreatitis EKG showing sinus rhythm at [address]-T changes, QTc 412 In emergency room patient received 2 L of normal saline and then continued at 100 mL/h 03/16/2024 Patient evaluated today in follow-up in the medical floor with him at the bedside. She continues to report liquid stools with 5 episodes overnight and 1 so far today. She did have an episode of emesis this morning following breakfast. She is currently on a clear liquid diet however she is requesting toast and okay with this.. C. difficile testing was negative. Patient was not able to tolerate the caution. She will continue on Imodium and Lomotil. Once her stools have softened patient will be discharged home. 03/17/2024 On follow-up today patient reports her last 2 bowel movements have been semiformed she is using Imodium and Lomotil has not been taking the Questran as she could not tolerate it. She is tolerating diet would like to discharge home today. She was cleared by oncology. Please see medication reconciliation for a list of current medications. Thank you for allowing us to participate in the care of this patient. The impression and plan of care has been dictated by Lashawn Blakely, Nurse Practitioner as directed. Dr. Hola MD I have performed a history and physical examination and medical decision making of this patient, discussed the same with the dictator, and agree with the dictators assessment and plan as written, documented as a scribe. Based on total visit time, I have performed more than 50% of this visit. Patient Condition at Discharge: Stable Plan - Discharge Summary Discharge Rx Participant: No New Discharge Prescriptions: New RX: Loperamide [Imodium] 2 mg PO QID PRN cap PRN Reason: Diarrhea Continue RX: Ondansetron [Zofran] 4 - 8 mg PO Q4H PRN MDD 8 tablets PRN Reason: Nausea RX: Omeprazole [PriLOSEC] 40 mg PO DAILY RX: Linagliptin [Tradjenta] 5 mg PO DAILY RX: Aspirin 81 mg PO DAILY RX: Metoprolol Tartrate [Lopressor] 25 mg PO DAILY RX: Azelastine HCl [Astelin Nasal [place]] 1 spray EA NOSTRIL HS PRN PRN Reason: Congestion Eye Health Complex 1 tab PO BID RX: Cholecalciferol [Vitamin D3 (10 Mcg = 400 Iu)] 10 mcg PO DAILY Healthy Hair & Nails Complete 1 tab PO DAILY Changed RX: Losartan Potassium [Cozaar] 50 mg PO DAILY #0 Discharge Medication List Eye Health Complex 1 tab PO BID 03/15/24 [History] Healthy Hair & Nails Complete 1 tab PO DAILY 03/15/24 [History] RX: Aspirin 81 mg PO DAILY 03/15/24 [History] RX: Azelastine HCl [Astelin Nasal [place]] 1 spray EA NOSTRIL HS PRN 03/15/24 [History] RX: Cholecalciferol [Vitamin D3 (10 Mcg = 400 Iu)] 10 mcg PO DAILY 03/15/24 [History] RX: Linagliptin [Tradjenta] 5 mg PO DAILY 03/15/24 [History] RX: Metoprolol Tartrate [Lopressor] 25 mg PO DAILY 03/15/24 [History] RX: Omeprazole [PriLOSEC] 40 mg PO DAILY 03/15/24 [History] RX: Ondansetron [Zofran] 4 - 8 mg PO Q4H PRN MDD 8 tablets 03/15/24 [History] RX: Loperamide [Imodium] 2 mg PO QID PRN cap 03/17/24 [Rx] RX: Losartan Potassium [Cozaar] 50 mg PO DAILY #0 03/17/24 [Rx] Follow up Appointment(s)/Referral(s): Erich Cortes [Primary Care Provider] - 1-2 days (Patient instructed to make a follow-up appointment with Dr. Cortes since office closed at time of discharge) Kayce Babin MD [STAFF PHYSICIAN] - 03/18/24 2:30 pm (See Dr. Babin on 03/18/24 as previously planned) Ambulatory/Diagnostic Orders: Basic Metabolic Panel [LAB.AMB] Time Frame: 3 Days, Location: None Selected Complete Blood Count w/diff [LAB.AMB] Location: None Selected Magnesium [LAB.AMB] Location: None Selected Patient Instructions/Handouts: Acute Kidney Injury (DC), Eating During Cancer Treatment (DC), Chemo Induced Nausea and Vomiting (DC) Activity/Diet/Wound Care/Special Instructions: Advance diet as tolerated Discharge Disposition: HOME SELF-CARE
[2024-03-17] MEDS: ZINC OXIDE PASTE (Z-GUARD) 1 APPLIC TOPICAL PRN (16:06)
== END 2024-03-17 16:27 | disposition home or self-care (01) ==
LOC: EC 22:23 → 5NMEDONC 23:47
PROVIDERS: ADMIT Internal Medicine; ATTEND Internal Medicine
DX: R11.2 Nausea with vomiting, unspecified (principal); K52.1 Toxic gastroenteritis and colitis; T45.1X5A Adverse effect of antineoplastic and immunosuppressive drugs, initial encounter; N17.9 Acute kidney failure, unspecified; E86.0 Dehydration; E83.42 Hypomagnesemia; R74.01 Elevation of levels of liver transaminase levels; C86.00 Extranodal NK/T-cell lymphoma, nasal type not having achieved remission; I71.40 Abdominal aortic aneurysm, without rupture, unspecified; E11.9 Type 2 diabetes mellitus without complications; I10 Essential (primary) hypertension; Z87.891 Personal history of nicotine dependence; Z79.899 Other long term (current) drug therapy; Z79.84 Long term (current) use of oral hypoglycemic drugs; Z79.82 Long term (current) use of aspirin
CPT/HCPCS: 96376 ×3; 96361 ×5; 96365; 96366; 96372 ×3; 96375 ×2; 99284; 36415; 93005; 80053 ×4; 82150 ×2; 83605 ×2; 83690 ×2; 83735; 84100; 84550; 85025 ×3; 87324; 87636; G0378 ×3; J1644 ×3; J2405 ×3; J3490 ×3; J3475

== ENCOUNTER 2024-03-21 00:45 | Emergency (ER) | payer MEDICARE, OTHER ==
[2024-03-21 00:49] VITALS: TEMP 98.3
--- NOTE | 2024-03-21 01:10 | ED ---
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 Received chemotherapy on 03/18/2019 ties. States she had 1 episode of emesis this evening that was nonbilious nonbloody with continued nausea and dry mouth. Endorses mild diarrhea. Denies any abdominal pain, chest pain, shortness of breath. Has no other acute complaints at this time. Presents for further evaluation at this time. Was given medications to help with nausea at home however she was unable to hold them down which is why she presents for further evaluation. Denies shortness of breath, fevers, chills. Denies chest pain. Presents for further evaluation at this time.Was recently admitted for dehydration earlier this month.She denies any abdominal pain. - Related Data Home Medications Medication Instructions Recorded Confirmed Aspirin 81 mg PO DAILY 03/15/24 03/15/24 Azelastine HCl [Astelin Nasal 1 spray EA NOSTRIL HS PRN 03/15/24 03/15/24 [place]] Cholecalciferol [Vitamin D3 (10 10 mcg PO DAILY 03/15/24 03/15/24 Mcg = 400 Iu)] Eye Health Complex 1 tab PO BID 03/15/24 03/15/24 Healthy Hair & Nails Complete 1 tab PO DAILY 03/15/24 03/15/24 Linagliptin [Tradjenta] 5 mg PO DAILY 03/15/24 03/15/24 Metoprolol Tartrate [Lopressor] 25 mg PO DAILY 03/15/24 03/15/24 Omeprazole [PriLOSEC] 40 mg PO DAILY 03/15/24 03/15/24 Ondansetron [Zofran] 4 - 8 mg PO Q4H PRN MDD 8 tablets 03/15/24 03/15/24 Previous Rx's Medication Instructions Recorded Loperamide [Imodium] 2 mg PO QID PRN cap 03/17/24 Losartan Potassium [Cozaar] 50 mg PO DAILY #0 03/17/24 Cephalexin [Keflex] 500 mg PO Q12HR 7 Days #14 cap 03/21/24 Allergies Allergy/AdvReac Type Severity Reaction Status Date / Time codeine Allergy Rash/Hives Verified 03/21/24 00:49 Penicillins Allergy Rash/Hives Verified 03/21/24 00:49 Review of Systems ROS Statement: Those systems with pertinent positive or pertinent negative responses have been documented in the HPI. Review of Systems: CONST: Denies fever EYES: Denies blurry vision ENT: Denies nasal congestion C/V: Denies Chest pain RESP: Denies shortness of breath GI: Denies abdominal pain : Denies dysuria SKIN: Denies rash. MSK: Denies joint pain. NEURO: Denies headache ROS Other: All systems not noted in ROS Statement are negative. Past Medical History Past Medical History: Cancer, Diabetes Mellitus, Hypertension Additional Past Medical History / Comment(s): lymphoma, History of Any Multi-Drug Resistant Organisms: None Reported Past Surgical History: Appendectomy Additional Past Surgical History / Comment(s): cateract both eyes,repaired AAA, Past Anesthesia/Blood Transfusion Reactions: No Reported Reaction Past Psychological History: No Psychological Hx Reported Smoking Status: Former smoker Past Alcohol Use History: None Reported Past Drug Use History: None Reported - Past Family History Mother Family Medical History: Cancer Additional Family Medical History / Comment(s): breast cancer Father Family Medical History: Hypertension Additional Family Medical History / Comment(s): cataracts Son(s) Family Medical History: Cancer Additional Family Medical History / Comment(s): tonsil cancer General Exam - General Exam Comments Initial Comments: General: Appears in no acute distress. HEAD: Normal with no signs of head trauma. EYES: PERRLA, EOMI, conjunctiva normal, no discharge. ENT: Hearing grossly intact, normal oropharynx. Mildly dry mucous membranes. RESPIRATORY: Clear breath sounds bilaterally. No wheezes, rales, or rhonchi. C/V: Regular rate and rhythm. S1 and S2 auscultated, no edema, peripheral pulses 2+ and intact throughout ABD: Abd is soft, nontender, nondistended EXT: No obvious deformity. SKIN: No rashes or lesions observed on exposed skin. NEURO: Alert and oriented x 4. Course Vital Signs 03/21/24 03/21/24 00:46 01:17 Temperature 98.3 F Pulse Rate 80 71 Respiratory 18 17 Rate Blood Pressure 106/81 140/79 O2 Sat by Pulse 98 96 Oximetry Medical Decision Making - Medical Decision Making Was pt. sent in by a medical professional or institution ([facility], [facility], urgent care, hospital, or fdc...) When possible be specific @ -No Did you speak to anyone other than the patient for history (EMS, parent, family, police, friend...)? What history was obtained from this source @ -No Did you review nursing and triage notes (agree or disagree)? Why? @ -I reviewed and agree with nursing and triage notes Were old charts reviewed (outside hosp., previous admission, EMS record, old EKG, old radiological studies, urgent care reports/EKG's, fdc records)? Report findings @ -Old charts reviewed confirming past medical history. Reviewed recent admission as well as laboratory values with comparative values to today. Differential Diagnosis (chest pain, altered mental status, abdominal pain women, abdominal pain men, vaginal bleeding, weakness, fever, dyspnea, syncope, headache, dizziness, GI bleed, back pain, seizure, CVA, palpatations, mental health, musculoskeletal)? @ -Nausea, vomiting, dehydration, electrolyte abnormality. This list is not al l inclusive. EKG interpreted by me (3pts min.). @ -As above X-rays interpreted by me (1pt min.). @ -X-ray reveals no obvious acute cardiopulmonary process. CT interpreted by me (1pt min.). @ -None done U/S interpreted by me (1pt. min.). @ -None done What testing was considered but not performed or refused? (CT, X-rays, U/S, labs)? Why? @ -None What meds were considered but not given or refused? Why? @ -None Did you discuss the management of the patient with other professionals (professionals i.e. [facility], [facility], lab, RT, psych nurse, clinical social worker, surgical services assistant, teacher, correctional officer, case packer and sealer)? Give summary @ -No Was smoking cessation discussed for >3mins.? @ -No Was critical care preformed (if so, how long)? @ -No Were there social determinants of health that impacted care today? How? (Homelessness, low income, unemployed, alcoholism, drug addiction, transportation, low edu. Level, literacy, decrease access to med. care, [facility], rehab)? @ -No Was there de-escalation of care discussed even if they declined (Discuss DNR or withdrawal of care, Hospice)? DNR status @ -No What co-morbidities impacted this encounter? (DM, HTN, Smoking, COPD, CAD, Cancer, CVA, ARF, Chemo, Hep., AIDS, mental health diagnosis, sleep apnea, morbid obesity)? @ -cancer currently on chemotherapy Was patient admitted / discharged? Hospital course, mention meds given and route, prescriptions, significant lab abnormalities, going to OR and other pertinent info. @ -Based on the patient's presentation and physical exam, patient presents emergency department complaining of nausea and vomiting in the setting of recent chemotherapy for nasal cancer. She has no other acute complaints at this time. We will obtain abdominal labs as well as infectious labs. She was in agreement this plan. Vitals are within acceptable limits. She will be symptomatically treated with IV fluids, Zofran, Protonix. X-ray shows no obvious acute cardiopulmonary process. Workup includes findings consistent with UTI. Patient is mildly hypokalemic with a potassium of 3.1. Patient is mildly dehydrated with a lactic acid of 2.5. Patient has chronically elevated bilirubins, LFTs, pancreatic enzymes which are slightly worse likely secondary to dehydration. He has no abdominal pain or symptoms to suggest anything else going on this is likely secondary to her chemotherapy. Urinalysis reveals a UTI. We discussed her elevation in LFTs, pancreatic enzymes, as well as mild elevation in bilirubin all of which could be secondary to dehydration but could also be hepatobiliary pathology. I did offer ultrasound or CT imaging however patient as she is asymptomatic, tolerating oral intake with no abdominal pain at any point and with nausea resolved, she declines at this time would like to follow-up with her oncologist later this morning. She declines both gallbladder ultrasound which could be obtained later this morning as well as CT imaging which could be obtained now. She has no symptoms currently and would prefer to follow-up with her oncologist and return if anything worsens. I do believe this is reasonable as she is asymptomatic and has close follow-up with her oncologist later this morning. Laboratory abnormalities could all be secondary to chemotherapy as well as from the nausea and vomiting and dehydration. Recommended close monitoring of symptoms and return to the emergency department if any worsening symptoms. She was in agreement this plan. Patient did have similar elevations in the pancreatic enzymes as well as mildly in the LFTs the other day when she was admitted for dehydration which resolved. On reevaluation, Patient is asymptomatic and tolerating oral intake. She would like to go home. We will administer an additional liter of fluids. Patient will be initiated on antibiotic therapy for UTI. She is given a dose of potassium. She has follow-up with her oncologist later this morning. She would like to go home. I believe this is reasonable. Strict return precautions discussed. No evidence of neutropenic fever. She was in agreement this plan. I will provide the patient with a prescription for Keflex. I instructed the patient to follow up with their PCP in the next 1-3 days. I explained that the patient should return to the emergency department if they experience any worsening symptoms. Strict return precautions were discussed with the patient. The patient expressed understanding of these instructions. I answered all questions that the patient had. The patient was discharged home in good condition with their prescriptions and follow up information. Strict return precautions were discussed as I reiterated that and if symptoms worsen she needs to return to the emergency department for imaging. They expressed understanding as well as the concern for possible hepatobiliary pathology but once again as the patient is asymptomatic and is tolerating oral intake at this time with no pain or other symptoms at this time and would like to go home, I believe this is a reasonable plan as she does have close follow-up with her oncologist later this morning. Undiagnosed new problem with uncertain prognosis? @ -No Drug Therapy requiring intensive monitoring for toxicity (Heparin, Nitro, Insulin, Cardizem)? @ -No Were any procedures done? @ -No Diagnosis/symptom? @ -Nausea vomiting, dehydration, UTI, hypokalemia in the setting of current ch emotherapy Acute, or Chronic, or Acute on Chronic? @ -Acute Uncomplicated (without systemic symptoms) or Complicated (systemic symptoms)? @ -Complicated Side effects of treatment? @ -None Exacerbation, Progression, or Severe Exacerbation] @ -No Poses a threat to life or bodily function? @ -Unlikely at this time - Lab Data Result diagrams: 03/21/24 01:15 03/21/24 01:15 Lab Results 03/21/24 03/21/24 03/21/24 Range/Units 01:15 01:15 01:15 WBC 3.7 L (3.8-10.6) k/uL RBC 4.17 (3.80-5.40) m/uL Hgb 12.7 (11.4-16.0) gm/dL Hct 36.6 (34.0-46.0) % MCV 87.8 (80.0-100.0) fL MCH 30.5 (25.0-35.0) pg MCHC 34.7 (31.0-37.0) g/dL RDW 14.4 (11.5-15.5) % Plt Count 49 L D (150-450) k/uL MPV 9.3 Neutrophils % 90 % Lymphocytes % 5 % Monocytes % 2 % Eosinophils % 1 % Basophils % 2 % Neutrophils # 3.4 (1.3-7.7) k/uL Lymphocytes # 0.2 L (1.0-4.8) k/uL Monocytes # 0.1 (0-1.0) k/uL Eosinophils # 0.0 (0-0.7) k/uL Basophils # 0.1 (0-0.2) k/uL Manual Slide Review Performed Tear Drop Cells Present Fragmented RBCs Present Sodium 137 (137-145) mmol/L Potassium 3.1 L (3.5-5.1) mmol/L Chloride 102 (98-107) mmol/L Carbon Dioxide 26 (22-30) mmol/L Anion Gap 9 mmol/L BUN 29 H (7-17) mg/dL Creatinine 0.81 (0.52-1.04) mg/dL Est GFR (CKD-EPI)AfAm 77 (>60 ml/min/1.73 sqM) Est GFR (CKD-EPI)NonAf 67 (>60 ml/min/1.73 sqM) Glucose 154 H (74-99) mg/dL Plasma Lactic Acid [place] 2.5 H* (0.7-2.0) mmol/L Calcium 8.3 L (8.4-10.2) mg/dL Total Bilirubin 3.4 H (0.2-1.3) mg/dL AST 452 H (14-36) U/L ALT 267 H (4-34) U/L Alkaline Phosphatase 118 (38-126) U/L Total Protein 6.0 L (6.3-8.2) g/dL Albumin 3.3 L (3.5-5.0) g/dL Amylase 145 H (30-110) U/L Lipase 629 H (23-300) U/L Urine Color Urine Appearance (Clear) Urine pH (5.0-8.0) Ur Specific [place] (1.001-1.035) Urine Protein (Negative) Urine Glucose (UA) (Negative) Urine Ketones (Negative) Urine Blood (Negative) Urine Nitrite (Negative) Urine Bilirubin (Negative) Urine Urobilinogen (<2.0) mg/dL Ur Leukocyte Esterase (Negative) Urine RBC (0-5) /hpf Urine WBC (0-5) /hpf Urine WBC Clumps (None) /hpf Ur Squamous Epith Cells (0-4) /hpf Amorphous Sediment (None) /hpf Urine Bacteria (None) /hpf Hyaline Casts (0-2) /lpf Urine Mucus (None) /hpf Urine Yeast (Budding) (None) /hpf Influenza Type A (PCR) (Not Detectd) Influenza Type B (PCR) (Not Detectd) RSV (PCR) (Not Detectd) SARS-CoV-2 (PCR) (Not Detectd) 03/21/24 03/21/24 Range/Units 01:15 01:47 WBC (3.8-10.6) k/uL RBC (3.80-5.40) m/uL Hgb (11.4-16.0) gm/dL Hct (34.0-46.0) % MCV (80.0-100.0) fL MCH (25.0-35.0) pg MCHC (31.0-37.0) g/dL RDW (11.5-15.5) % Plt Count (150-450) k/uL MPV Neutrophils % % Lymphocytes % % Monocytes % % Eosinophils % % Basophils % % Neutrophils # (1.3-7.7) k/uL Lymphocytes # (1.0-4.8) k/uL Monocytes # (0-1.0) k/uL Eosinophils # (0-0.7) k/uL Basophils # (0-0.2) k/uL Manual Slide Review Tear Drop Cells Fragmented RBCs Sodium (137-145) mmol/L Potassium (3.5-5.1) mmol/L Chloride (98-107) mmol/L Carbon Dioxide (22-30) mmol/L Anion Gap mmol/L BUN (7-17) mg/dL Creatinine (0.52-1.04) mg/dL Est GFR (CKD-EPI)AfAm (>60 ml/min/1.73 sqM) Est GFR (CKD-EPI)NonAf (>60 ml/min/1.73 sqM) Glucose (74-99) mg/dL Plasma Lactic Acid [place] (0.7-2.0) mmol/L Calcium (8.4-10.2) mg/dL Total Bilirubin (0.2-1.3) mg/dL AST (14-36) U/L ALT (4-34) U/L Alkaline Phosphatase (38-126) U/L Total Protein (6.3-8.2) g/dL Albumin (3.5-5.0) g/dL Amylase (30-110) U/L Lipase (23-300) U/L Urine Color Yellow Urine Appearance Cloudy H (Clear) Urine pH 6.0 (5.0-8.0) Ur Specific [place] 1.015 (1.001-1.035) Urine Protein 1+ H (Negative) Urine Glucose (UA) Negative (Negative) Urine Ketones Negative (Negative) Urine Blood Small H (Negative) Urine Nitrite Positive H (Negative) Urine Bilirubin Negative (Negative) Urine Urobilinogen <2.0 (<2.0) mg/dL Ur Leukocyte Esterase Large H (Negative) Urine RBC 5 (0-5) /hpf Urine WBC 76 H (0-5) /hpf Urine WBC Clumps Rare H (None) /hpf Ur Squamous Epith Cells 1 (0-4) /hpf Amorphous Sediment Rare H (None) /hpf Urine Bacteria Many H (None) /hpf Hyaline Casts 1 (0-2) /lpf Urine Mucus Rare H (None) /hpf Urine Yeast (Budding) Occasional H (None) /hpf Influenza Type A (PCR) Not Detected (Not Detectd) Influenza Type B (PCR) Not Detected (Not Detectd) RSV (PCR) Not Detected (Not Detectd) SARS-CoV-2 (PCR) Not Detected (Not Detectd) - EKG Data -: EKG Interpreted by Me EKG Comments: 12-lead Electrocardiogram Interpretation Note EKG was reviewed and interpreted by myself. 12-lead ECG performed at 0114 is int erpreted by me as revealing normal sinus rhythm with occasional PAC at a rate of 66 beats per minute. [place] is normal. HI interval is 131 ms, QRS duration is 92 ms, QTc is 442 ms. There were no ST or T wave abnormalities to suggest myocardial ischemia or injury. R wave progression across the precordium was satisfactory. By my interpretation this EKG is non-diagnostic for acute ischemia. Disposition Clinical Impression: UTI (urinary tract infection), Hypokalemia, Dehydration, Nausea and vomiting Disposition: HOME SELF-CARE Condition: Fair Instructions (If sedation given, give patient instructions): Dehydration (ED), Urinary Tract Infection in Women (ED), Acute Nausea and Vomiting (ED) Additional Instructions: Based on workup today, your potassium is slightly low, and you have dehydration as well as a urinary tract infection. Use the Zofran tablets provided to you that dissolve on your tongue for nausea. Follow-up with your oncologist at your prescheduled appointment tomorrow morning. Follow-up with your PCP in the next 1 to 3 days. Return if any worsening symptoms. Continue with antibiotics for UTI. Cannot definitively rule out hepatobiliary pathology such as gallbladder issues or gallstones for you at this time based on labs. Please closely follow- up with your oncologist and return if there is worsening symptoms. Prescriptions: Cephalexin [Keflex] 500 mg PO Q12HR 7 Days #14 cap Is patient prescribed a controlled substance at d/c from ED?: No Referrals: Erich Cortes [Primary Care Provider] - 1-2 days Time of Disposition: 02:50
[2024-03-21] MEDS: SODIUM CHLORIDE 0.9% 1,000 ML IV STA ×2 (01:18→02:46)
[2024-03-21] MEDS: PANTOPRAZOLE 40 MG/10 ML VIAL IVP STA (01:19)
[2024-03-21] MEDS: ONDANSETRON 4 MG/2 ML VIAL IVP STA (01:20)
[2024-03-21 01:55] LABS: Basophils # (A) 0.1 k/uL (0-0.2); Basophils % (A) 2 %; Eosinophils % (A) 1 %; HCT 36.6 % (34.0-46.0); HGB 12.7 gm/dL (11.4-16.0); Lymphocytes # (A) 0.2 k/uL (1.0-4.8); Lymphocytes % (A) 5 %; MCH 30.5 pg (25.0-35.0); MCHC 34.7 g/dL (31.0-37.0); MCV 87.8 fL (80.0-100.0); Mean Platelet Volume 9.3; Monocytes # (A) 0.1 k/uL (0-1.0); Monocytes % (A) 2 %; Neutrophils # (A) 3.4 k/uL (1.3-7.7); Neutrophils % (A) 90 %; RBC 4.17 m/uL (3.80-5.40); RDW 14.4 % (11.5-15.5); WBC 3.7 k/uL (3.8-10.6)
[2024-03-21 02:00] LABS: Amorphous Sediment,Urine Rare /hpf; Appearance,Urine Cloudy (Clear); Bacteria,Urine Many /hpf; Bilirubin,Urine Negative (Negative); Blood,Urine Small (Negative); Budding Yeast,Urine Occasional /hpf; Color,Urine Yellow; Glucose,Urine (UA) Negative (Negative); Hyaline Casts,Urine 1 /lpf (0-2); Ketones,Urine Negative (Negative); Leukocyte Esterase,Urine Large (Negative); Mucus,Urine Rare /hpf; Nitrite,Urine Positive (Negative); Protein,Urine 1+ (Negative); RBC,Urine 5 /hpf (0-5); Specific Gravity,Urine 1.015 (1.001-1.035); Squamous Epithelial Cell,Urine 1 /hpf (0-4); Urobilinogen,Urine <2.0 mg/dL (<2.0); WBC,Urine 76 /hpf (0-5)
[2024-03-21 02:08] LABS: ALT 267 U/L (4-34); AST 452 U/L (14-36); African American GFR (CKD) 77 (>60 ml/min/1.73 sqM); Albumin 3.3 g/dL (3.5-5.0); Alkaline Phosphatase 118 U/L (38-126); Amylase 145 U/L (30-110); Anion Gap 9 mmol/L; Blood Urea Nitrogen 29 mg/dL (7-17); Calcium 8.3 mg/dL (8.4-10.2); Carbon Dioxide 26 mmol/L (22-30); Chloride 102 mmol/L (98-107); Glucose 154 mg/dL (74-99); Lipase 629 U/L (23-300); Non-African American GFR(CKD) 67 (>60 ml/min/1.73 sqM); Potassium 3.1 mmol/L (3.5-5.1); Sodium 137 mmol/L (137-145); Total Bilirubin 3.4 mg/dL (0.2-1.3)
[2024-03-21] MEDS: cefTRIAXone IN SWFI 1,000 MG/10 ML SYRINGE IVP STA (02:56)
[2024-03-21] MEDS: POTASSIUM CHLORIDE ER 20 MEQ TAB.ER PO STA (02:57)
[2024-03-21] MEDS: ONDANSETRON 4 MG ODT STARTER PACK 2 TAB BTL PO STA (02:57)
--- NOTE | 2024-03-21 03:05 | XR ---
EXAM: XR Chest, 1 View CLINICAL HISTORY: ITS.REASON XR Reason: abdominal pain TECHNIQUE: Frontal view of the chest. COMPARISON: No relevant prior studies available. FINDINGS: Lungs: No consolidation or mass. Pleural space: No acute findings. Heart: Severe cardiomegaly. Bones/joints: No acute findings. IMPRESSION: No acute cardiopulmonary process.
[2024-03-21 03:13] LABS: Platelet Count 49 k/uL (150-450)
[2024-03-21 03:14] LABS: RBC Fragments Present; Tear Drop Cells Present
[2024-03-21] MEDS: POTASSIUM BICARBONATE/CIT AC 20 MEQ TABLET.EFF PO ONE (03:18)
[2024-03-21 03:39] VITALS: BP 153/96; PULSE 62; RESP 16
== END 2024-03-21 03:40 | disposition home or self-care (01) ==
LOC: EC 00:45
DX: N39.0 Urinary tract infection, site not specified (principal); R11.2 Nausea with vomiting, unspecified; Z87.891 Personal history of nicotine dependence; Z88.0 Allergy status to penicillin; Z88.5 Allergy status to narcotic agent; Z92.21 Personal history of antineoplastic chemotherapy; Z11.52 Encounter for screening for COVID-19
CPT/HCPCS: 36415; 93005; 80053; 82150; 83605; 83690; 85025; 81001; 87086; 87636; 71045; 99284; 96374; 96375; 96361; J2405; J0696; S0119; J2470

== ENCOUNTER 2024-03-29 11:35 | Inpatient (IN) | payer MEDICARE ==
[2024-03-29 13:22] LABS: INR 1.6 (<1.2); Partial Thromboplastin Time 26.1 sec (22.0-30.0); Prothrombin Time 16.6 sec (10.0-12.5)
[2024-03-29 13:23] LABS: ALT 181 U/L (4-34); AST 308 U/L (14-36); African American GFR (CKD) 30 (>60 ml/min/1.73 sqM); Albumin 2.4 g/dL (3.5-5.0); Alkaline Phosphatase 216 U/L (38-126); Anion Gap 11 mmol/L; Blood Urea Nitrogen 62 mg/dL (7-17); Calcium 8.3 mg/dL (8.4-10.2); Carbon Dioxide 27 mmol/L (22-30); Chloride 112 mmol/L (98-107); Glucose 110 mg/dL (74-99); Magnesium 2.2 mg/dL (1.6-2.3); Non-African American GFR(CKD) 26 (>60 ml/min/1.73 sqM); Potassium 3.6 mmol/L (3.5-5.1); Sodium 150 mmol/L (137-145); Total Bilirubin 4.3 mg/dL (0.2-1.3); Total Protein 4.9 g/dL (6.3-8.2)
--- NOTE | 2024-03-29 13:25 | ED ---
General Adult HPI - General Chief complaint: Weakness Stated complaint: Failure to thrive Time Seen by Provider: 03/29/24 11:50 Source: patient, EMS, RN notes reviewed, old records reviewed Mode of arrival: EMS - History of Present Illness Initial comments: This is an 83-year-old female who has a history of lymphoma. Patient just received chemo on March 11 and since then has been getting weaker and weaker vomiting and having some diarrhea. Patient states that she was so weak she could not stand so they brought her into the emergency department. Patient states her abdomen is sore diffusely secondary to all the vomiting. Patient currently only complains of nausea and some abdominal soreness from vomiting. Patient denies any chest pain difficulty breathing. Patient Nuys any recent fever chills or cough. Patient denies any dysuria hematuria urinary frequency. Patient Nuys any back pain. Patient denies a headache patient has numbness weakness - Related Data Home Medications Medication Instructions Recorded Confirmed Linagliptin [Tradjenta] 5 mg PO DAILY 03/15/24 03/29/24 Metoprolol Tartrate [Lopressor] 25 mg PO DAILY 03/15/24 03/29/24 Biotin [Wdan-Rash-Hcyny] 10,000 mcg PO DAILY 03/29/24 03/29/24 Cephalexin [Keflex] 500 mg PO Q12H 03/29/24 03/29/24 Cholecalciferol [Vitamin D3 (10 10 mcg PO DAILY 03/29/24 03/29/24 Mcg = 400 Iu)] Omeprazole [PriLOSEC] 40 mg PO DAILY 03/29/24 03/29/24 Ondansetron [Zofran] 4 - 8 mg PO Q4H PRN MDD 8 TABLETS 03/29/24 03/29/24 Vit C/E/Zn/Coppr/Lutein/Zeaxan 1 cap PO HS 03/29/24 03/29/24 [Preservision Areds 2 Softgel] Allergies Allergy/AdvReac Type Severity Reaction Status Date / Time codeine Allergy Rash/Hives Verified 03/29/24 16:47 Penicillins Allergy Rash/Hives Verified 03/29/24 16:47 Review of Systems ROS Statement: Those systems with pertinent positive or pertinent negative responses have been documented in the HPI. ROS Other: All systems not noted in ROS Statement are negative. Past Medical History Past Medical History: Cancer, Diabetes Mellitus, Hypertension Additional Past Medical History / Comment(s): lymphoma History of Any Multi-Drug Resistant Organisms: None Reported Past Surgical History: Appendectomy Additional Past Surgical History / Comment(s): cateract both eyes,repaired AAA, Past Anesthesia/Blood Transfusion Reactions: No Reported Reaction Past Psychological History: No Psychological Hx Reported Smoking Status: Former smoker - Past Family History Mother Family Medical History: Cancer Additional Family Medical History / Comment(s): breast cancer Father Family Medical History: Hypertension Additional Family Medical History / Comment(s): cataracts Son(s) Family Medical History: Cancer Additional Family Medical History / Comment(s): tonsil cancer General Exam - General Exam Comments Initial Comments: GENERAL: Patient is well-developed and well-nourished. Patient is nontoxic and well- hydrated and is in mild distress. ENT: Neck is soft and supple. No significant lymphadenopathy is noted. Oropharynx is clear. Moist mucous membranes. Neck has full range of motion without eliciting any pain. EYES: The sclera were anicteric and conjunctiva were pink and moist. Extraocular movements were intact and pupils were equal round and reactive to light. Eyelids were unremarkable. PULMONARY: Unlabored respirations. Good breath sounds bilaterally. No audible rales rhonchi or wheezing was noted. CARDIOVASCULAR: There is a regular rate and rhythm without any murmurs gallops or rubs. ABDOMEN: Soft and nontender with normal bowel sounds. SKIN: Skin is clear with no lesions or rashes and otherwise unremarkable. NEUROLOGIC: Patient is alert and oriented x3. Cranial nerves II through XII are grossly intact. Motor and sensory are also intact. Normal speech, volume and content. Symmetrical smile. MUSCULOSKELETAL: Normal extremities with adequate strength and full range of motion. LYMPHATICS: No significant lymphadenopathy is noted PSYCHIATRIC: Normal psychiatric evaluation. Course Vital Signs 03/29/24 03/29/24 03/29/24 11:36 11:57 14:39 Temperature 98.0 F 97.6 F Pulse Rate 76 91 107 H Respiratory 18 18 22 Rate Blood Pressure 87/64 97/65 96/71 O2 Sat by Pulse 95 Oximetry 03/29/24 03/29/24 03/29/24 15:30 15:41 15:42 Temperature Pulse Rate 117 H 101 H 96 Respiratory 16 12 Rate Blood Pressure 101/76 O2 Sat by Pulse 95 Oximetry 03/29/24 03/29/24 03/29/24 16:35 16:40 17:10 Temperature 97.5 F L Pulse Rate 101 H 98 99 Respiratory 18 14 14 Rate Blood Pressure 95/71 80/59 99/67 O2 Sat by Pulse 90 L 90 L Oximetry Medical Decision Making - Medical Decision Making EKG is interpreted by myself read EKG shows sinus rhythm with occasional PAC at a rate of 104 bpm DC interval is 120 QRS is 94 QT interval 365 QTc is 426. Was pt. sent in by a medical professional or institution (, [facility], FOOD QUALITY TECHNICIAN, urgent care, hospital, or long term...) When possible be specific @ -No Did you speak to anyone other than the patient for history (EMS, parent, family, police, friend...)? What history was obtained from this source @ -No Did you review nursing and triage notes (agree or disagree)? Why? @ -I reviewed and agree with nursing and triage notes Were old charts reviewed (outside hosp., previous admission, EMS record, old EKG, old radiological studies, urgent care reports/EKG's, long term records)? Report findings @ -No old charts were reviewed Differential Diagnosis? @ -Differential Weakness: Hypoglycemia, shock, sepsis, hyponatremia, anemia, infection, TN, ETOH, adverse medicine reaction, overdose, stroke, this is not meant to be an all-inclusive list. EKG interpreted by me (3pts min.). @ -As above X-rays interpreted by me (1pt min.). @ -Chest x-ray shows no acute abnormality CT interpreted by me (1pt min.). @ -None done U/S interpreted by me (1pt. min.). @ -None done What testing was considered but not performed or refused? (CT, X-rays, U/S, labs)? Why? @ -None What meds were considered but not given or refused? Why? @ -None Did you discuss the management of the patient with other professionals (jan wayne i.e. [facility] Esparza, FOOD QUALITY TECHNICIAN, lab, RT, psych nurse, licensed clinical social worker, air export operations agent, teacher, dispatch officer, case investigator)? Give summary @ -I spoke with Dr. Marcelino and he agreed to see the patient on consult. [facility]. Was smoking cessation discussed for >3mins.? @ -No Was critical care preformed (if so, how long)? @ -No Were there social determinants of health that impacted care today? How? (Homelessness, low income, unemployed, alcoholism, drug addiction, transportation, low edu. Level, literacy, decrease access to med. care, intermediate, rehab)? @ -No Was there de-escalation of care discussed even if they declined (Discuss DNR or withdrawal of care, Hospice)? DNR status @ -No What co-morbidities impacted this encounter? (DM, HTN, Smoking, COPD, CAD, Cancer, CVA, ARF, Chemo, Hep., AIDS, mental health diagnosis, sleep apnea, morbid obesity)? @ -None Was patient admitted / discharged? Hospital course, mention meds given and route, prescriptions, significant lab abnormalities, going to OR and other pertinent info. @ -Patient has not sodium 150 creatinine is elevated troponin is elevated CKs are also elevated and liver enzymes are elevated. I spoke with oncology they want the patient on a bicarb drip and have nephrology consulted which I did I also talked with the significant hospitalist and they agreed admit the patient. Undiagnosed new problem with uncertain prognosis? @ -No Drug Therapy requiring intensive monitoring for toxicity (Heparin, Nitro, Insulin, Cardizem)? @ -No Were any procedures done? @ -No Diagnosis/symptom? @ -Rhabdomyolysis Acute, or Chronic, or Acute on Chronic? @ -Acute Uncomplicated (without systemic symptoms) or Complicated (systemic symptoms)? @ -Complicate Side effects of treatment? @ -No Exacerbation, Progression, or Severe Exacerbation? @ -No Poses a threat to life or bodily function? How? (Chest pain, USA, TN, pneumonia, PE, COPD, DKA, ARF, appy, cholecystitis, CVA, Diverticulitis, Homicidal, Suic idal, threat to staff... and all critical care pts) @ -Yes this can lead to kidney failure and electrolyte abnormalities Diagnosis/symptom? @ -Renal insufficiency Acute, or Chronic, or Acute on Chronic? @ -Acute Uncomplicated (without systemic symptoms) or Complicated (systemic symptoms)? @ -Complicated Side effects of treatment? @ -None Exacerbation, Progression, or Severe Exacerbation] @ -No Poses a threat to life or bodily function? @ -No Diagnosis/symptom? @ -Hypernatremia Acute, or Chronic, or Acute on Chronic? @ -Acute Uncomplicated (without systemic symptoms) or Complicated (systemic symptoms)? @ -Complicated Side effects of treatment? @ -None Exacerbation, Progression, or Severe Exacerbation] @ -No Poses a threat to life or bodily function? @ -No Diagnosis/symptom? @ -Hyperbilirubinemia Acute, or Chronic, or Acute on Chronic? @ -Acute Uncomplicated (without systemic symptoms) or Complicated (systemic symptoms)? @ -Complicated Side effects of treatment? @ -None Exacerbation, Progression, or Severe Exacerbation] @ -No Poses a threat to life or bodily function? @ -No Diagnosis/symptom? @ -Elevated troponin Acute, or Chronic, or Acute on Chronic? @ -Acute Uncomplicated (without systemic symptoms) or Complicated (systemic symptoms)? @ -Complicated Side effects of treatment? @ -None Exacerbation, Progression, or Severe Exacerbation] @ -No Poses a threat to life or bodily function? @ -Yes this could be a precursor to an TN or related to the rhabdomyolysis. - Lab Data Result diagrams: 03/29/24 13:03 03/29/24 13:03 Lab Results 03/29/24 03/29/24 03/29/24 Range/Units 13:03 13:03 13:03 WBC 17.0 H (3.8-10.6) k/uL RBC 3.90 (3.80-5.40) m/uL Hgb 11.1 L (11.4-16.0) gm/dL Hct 34.6 (34.0-46.0) % MCV 88.7 (80.0-100.0) fL MCH 28.6 (25.0-35.0) pg MCHC 32.2 (31.0-37.0) g/dL RDW 15.3 (11.5-15.5) % Plt Count 79 L D (150-450) k/uL MPV 13.1 Neutrophils % (Manual) 60 % Band Neuts % (Manual) 6 % Lymphocytes % (Manual) 28 % Monocytes % (Manual) 2 % Blast Cells % 5 H* % Neutrophils # (Manual) 11.20 H (1.3-7.7) k/uL Lymphocytes # (Manual) 4.76 (1.0-4.8) k/uL Monocytes # (Manual) 0.34 (0-1.0) k/uL Blast Cells # (Man) 0.85 H (0) k/uL Nucleated RBCs 6 H (0-0) /100 WBC Manual Slide Review Performed Polychromasia Present Poikilocytosis (manual Present Anisocytosis (manual) Present PT 16.6 H (10.0-12.5) sec INR 1.6 H (<1.2) APTT 26.1 (22.0-30.0) sec Sodium 150 H (137-145) mmol/L Potassium 3.6 (3.5-5.1) mmol/L Chloride 112 H (98-107) mmol/L Carbon Dioxide 27 (22-30) mmol/L Anion Gap 11 mmol/L BUN 62 H (7-17) mg/dL Creatinine 1.76 H (0.52-1.04) mg/dL Est GFR (CKD-EPI)AfAm 30 (>60 ml/min/1.73 sqM) Est GFR (CKD-EPI)NonAf 26 (>60 ml/min/1.73 sqM) Glucose 110 H (74-99) mg/dL Lactic Ac Sepsis Rflx Plasma Lactic Acid Zion (0.7-2.0) mmol/L Uric Acid (3.7-7.4) mg/dL Calcium 8.3 L (8.4-10.2) mg/dL Phosphorus (2.5-4.5) mg/dL Magnesium 2.2 (1.6-2.3) mg/dL Total Bilirubin 4.3 H (0.2-1.3) mg/dL AST 308 H (14-36) U/L ALT 181 H (4-34) U/L Alkaline Phosphatase 216 H (38-126) U/L Creatine Kinase (30-135) U/L Troponin I (0.000-0.034) ng/mL Total Protein 4.9 L (6.3-8.2) g/dL Albumin 2.4 L (3.5-5.0) g/dL Urine Color Urine Appearance (Clear) Urine pH (5.0-8.0) Ur Specific [place] (1.001-1.035) Urine Protein (Negative) Urine Glucose (UA) (Negative) Urine Ketones (Negative) Urine Blood (Negative) Urine Nitrite (Negative) Urine Bilirubin (Negative) Urine Urobilinogen (<2.0) mg/dL Ur Leukocyte Esterase (Negative) Urine RBC (0-5) /hpf Urine WBC (0-5) /hpf Urine Mucus (None) /hpf 03/29/24 03/29/24 03/29/24 Range/Units 13:03 13:03 13:03 WBC (3.8-10.6) k/uL RBC (3.80-5.40) m/uL Hgb (11.4-16.0) gm/dL Hct (34.0-46.0) % MCV (80.0-100.0) fL MCH (25.0-35.0) pg MCHC (31.0-37.0) g/dL RDW (11.5-15.5) % Plt Count (150-450) k/uL MPV Neutrophils % (Manual) % Band Neuts % (Manual) % Lymphocytes % (Manual) % Monocytes % (Manual) % Blast Cells % % Neutrophils # (Manual) (1.3-7.7) k/uL Lymphocytes # (Manual) (1.0-4.8) k/uL Monocytes # (Manual) (0-1.0) k/uL Blast Cells # (Man) (0) k/uL Nucleated RBCs (0-0) /100 WBC Manual Slide Review Polychromasia Poikilocytosis (manual Anisocytosis (manual) PT (10.0-12.5) sec INR (<1.2) APTT (22.0-30.0) sec Sodium (137-145) mmol/L Potassium (3.5-5.1) mmol/L Chloride (98-107) mmol/L Carbon Dioxide (22-30) mmol/L Anion Gap mmol/L BUN (7-17) mg/dL Creatinine (0.52-1.04) mg/dL Est GFR (CKD-EPI)AfAm (>60 ml/min/1.73 sqM) Est GFR (CKD-EPI)NonAf (>60 ml/min/1.73 sqM) Glucose (74-99) mg/dL Lactic Ac Sepsis Rflx Plasma Lactic Acid Zion 2.8 H* (0.7-2.0) mmol/L Uric Acid 8.5 H (3.7-7.4) mg/dL Calcium (8.4-10.2) mg/dL Phosphorus 4.4 (2.5-4.5) mg/dL Magnesium (1.6-2.3) mg/dL Total Bilirubin (0.2-1.3) mg/dL AST (14-36) U/L ALT (4-34) U/L Alkaline Phosphatase (38-126) U/L Creatine Kinase 2391 H* (30-135) U/L Troponin I 0.281 H* (0.000-0.034) ng/mL Total Protein (6.3-8.2) g/dL Albumin (3.5-5.0) g/dL Urine Color Urine Appearance (Clear) Urine pH (5.0-8.0) Ur Specific [place] (1.001-1.035) Urine Protein (Negative) Urine Glucose (UA) (Negative) Urine Ketones (Negative) Urine Blood (Negative) Urine Nitrite (Negative) Urine Bilirubin (Negative) Urine Urobilinogen (<2.0) mg/dL Ur Leukocyte Esterase (Negative) Urine RBC (0-5) /hpf Urine WBC (0-5) /hpf Urine Mucus (None) /hpf 03/29/24 03/29/24 03/29/24 Range/Units 13:32 15:38 15:46 WBC (3.8-10.6) k/uL RBC (3.80-5.40) m/uL Hgb (11.4-16.0) gm/dL Hct (34.0-46.0) % MCV (80.0-100.0) fL MCH (25.0-35.0) pg MCHC (31.0-37.0) g/dL RDW (11.5-15.5) % Plt Count (150-450) k/uL MPV Neutrophils % (Manual) % Band Neuts % (Manual) % Lymphocytes % (Manual) % Monocytes % (Manual) % Blast Cells % % Neutrophils # (Manual) (1.3-7.7) k/uL Lymphocytes # (Manual) (1.0-4.8) k/uL Monocytes # (Manual) (0-1.0) k/uL Blast Cells # (Man) (0) k/uL Nucleated RBCs (0-0) /100 WBC Manual Slide Review Polychromasia Poikilocytosis (manual Anisocytosis (manual) PT (10.0-12.5) sec INR (<1.2) APTT (22.0-30.0) sec Sodium (137-145) mmol/L Potassium (3.5-5.1) mmol/L Chloride (98-107) mmol/L Carbon Dioxide (22-30) mmol/L Anion Gap mmol/L BUN (7-17) mg/dL Creatinine (0.52-1.04) mg/dL Est GFR (CKD-EPI)AfAm (>60 ml/min/1.73 sqM) Est GFR (CKD-EPI)NonAf (>60 ml/min/1.73 sqM) Glucose (74-99) mg/dL Lactic Ac Sepsis Rflx Y Plasma Lactic Acid Zion 2.2 H* (0.7-2.0) mmol/L Uric Acid (3.7-7.4) mg/dL Calcium (8.4-10.2) mg/dL Phosphorus (2.5-4.5) mg/dL Magnesium (1.6-2.3) mg/dL Total Bilirubin (0.2-1.3) mg/dL AST (14-36) U/L ALT (4-34) U/L Alkaline Phosphatase (38-126) U/L Creatine Kinase (30-135) U/L Troponin I (0.000-0.034) ng/mL Total Protein (6.3-8.2) g/dL Albumin (3.5-5.0) g/dL Urine Color Dark Brown Urine Appearance Cloudy H (Clear) Urine pH 5.5 (5.0-8.0) Ur Specific [place] 1.022 (1.001-1.035) Urine Protein 1+ H (Negative) Urine Glucose (UA) Negative (Negative) Urine Ketones Negative (Negative) Urine Blood Moderate H (Negative) Urine Nitrite Negative (Negative) Urine Bilirubin 1+ H (Negative) Urine Urobilinogen <2.0 (<2.0) mg/dL Ur Leukocyte Esterase Negative (Negative) Urine RBC 1 (0-5) /hpf Urine WBC 7 H (0-5) /hpf Urine Mucus Few H (None) /hpf Disposition Clinical Impression: Rhabdomyolysis, Hypernatremia, Elevated troponin, Renal insufficiency, Hyperbilirubinemia, Generalized weakness Disposition: ADMITTED IP TO THIS HOSP Referrals: Erich Cortes [Primary Care Provider] - 1-2 days Time of Disposition: 17:50
[2024-03-29 13:31] LABS: HCT 34.6 % (34.0-46.0); HGB 11.1 gm/dL (11.4-16.0); MCH 28.6 pg (25.0-35.0); MCHC 32.2 g/dL (31.0-37.0); MCV 88.7 fL (80.0-100.0); Mean Platelet Volume 13.1; RDW 15.3 % (11.5-15.5)
[2024-03-29 13:33] LABS: Platelet Count 79 k/uL (150-450)
--- NOTE | 2024-03-29 13:42 | XR ---
EXAMINATION TYPE: XR chest 2V DATE OF EXAM: 03/29/2024 1:22 PM COMPARISON: 03/21/2024 CLINICAL INDICATION: Female, 83 years old with history of Weakness, TECHNIQUE: XR chest 2V view(s) obtained. FINDINGS: The heart size is enlarged. Some tortuosity of aorta is likely present. The pulmonary vasculature is normal. The lungs are clear. IMPRESSION: 1. No acute pulmonary process. 2. Cardiomegaly [facility], Workstation: [facility], 03/29/2024 1:40 PM
[2024-03-29] MEDS: ONDANSETRON 4 MG/2 ML VIAL IVP STA (14:39)
[2024-03-29] MEDS: SODIUM CHLORIDE 0.9% 1,000 ML IV STA (14:41)
[2024-03-29] MEDS: HYDROmorphone 0.5 MG/0.5 ML SYRINGE IVP STA ×2 (14:42→14:49)
[2024-03-29 15:59] LABS: Appearance,Urine Cloudy (Clear); Bilirubin,Urine 1+ (Negative); Blood,Urine Moderate (Negative); Color,Urine Dark Brown; Glucose,Urine (UA) Negative (Negative); Ketones,Urine Negative (Negative); Leukocyte Esterase,Urine Negative (Negative); Mucus,Urine Few /hpf; Nitrite,Urine Negative (Negative); PH, Urine 5.5 (5.0-8.0); Protein,Urine 1+ (Negative); RBC,Urine 1 /hpf (0-5); Specific Gravity,Urine 1.022 (1.001-1.035); Urobilinogen,Urine <2.0 mg/dL (<2.0); WBC,Urine 7 /hpf (0-5)
[2024-03-29 16:06] LABS: Phosphorus 4.4 mg/dL (2.5-4.5); Uric Acid 8.5 mg/dL (3.7-7.4)
[2024-03-29] MEDS: SODIUM CHLORIDE 0.45% 1,000 ML IV SCH (16:40)
[2024-03-29 16:59] LABS: Band Neutrophils % 6 %; Neutrophils % (M) 60 %
[2024-03-29 17:02] LABS: Anisocytosis (M) Present; Blast Cells # (M) 0.85 k/uL (0); Lymphocytes # (M) 4.76 k/uL (1.0-4.8); Monocytes # (M) 0.34 k/uL (0-1.0); Nucleated Red Blood Cells 6 /100 WBC (0-0); Poikilocytosis (M) Present; Total Cells Counted 200
[2024-03-29 17:03] LABS: Polychromasia Present
[2024-03-29] MEDS ORDERED: SODIUM BICARB 8.4% 50 ML SYR (1 MEQ/ML) IV STA (17:36)
[2024-03-29] MEDS ORDERED: DEXTROSE 50% SYRINGE 50 ML IVP PRN ×2 (19:01)
[2024-03-29] MEDS ORDERED: ACETAMINOPHEN TAB 325 MG TAB PO PRN (19:04)
[2024-03-29 20:15] LABS: Glucose,Whole Blood 113 mg/dL (70-110)
[2024-03-29] MEDS: INSULIN ASPART (NovoLOG) 100 UNIT/ML VIAL SQ SCH (20:20)
[2024-03-29] MEDS: DEXTROSE 5% IN WATER 1,000 ML with SODIUM BICARB (1 MEQ/ML) 150 ML IV SCH (20:20)
[2024-03-29] MEDS: ONDANSETRON 4 MG/2 ML VIAL IVP PRN (22:27)
[2024-03-30 01:53] LABS: HGB 10.7 gm/dL (11.4-16.0); Hypochromasia Slight; MCH 30.4 pg (25.0-35.0); MCHC 33.6 g/dL (31.0-37.0); MCV 90.5 fL (80.0-100.0); RBC 3.53 m/uL (3.80-5.40); RDW 15.3 % (11.5-15.5)
[2024-03-30 01:57] LABS: Platelet Count 68 k/uL (150-450)
[2024-03-30 02:03] LABS: ALT 170 U/L (4-34); AST 288 U/L (14-36); African American GFR (CKD) 23 (>60 ml/min/1.73 sqM); Albumin 2.1 g/dL (3.5-5.0); Alkaline Phosphatase 210 U/L (38-126); Anion Gap 8 mmol/L; Blood Urea Nitrogen 70 mg/dL (7-17); Calcium 7.5 mg/dL (8.4-10.2); Carbon Dioxide 29 mmol/L (22-30); Chloride 111 mmol/L (98-107); Glucose 212 mg/dL (74-99); Non-African American GFR(CKD) 20 (>60 ml/min/1.73 sqM); Potassium 3.6 mmol/L (3.5-5.1); Sodium 148 mmol/L (137-145); Total Protein 4.4 g/dL (6.3-8.2)
[2024-03-30 02:13] LABS: Band Neutrophils % 20 %; Blast Cells # (M) 0.44 k/uL (0); Lymphocytes # (M) 0.73 k/uL (1.0-4.8); Metamyelocytes # (M) 0.29 k/uL (0); Metamyelocytes % 2 %; Monocytes # (M) 1.31 k/uL (0-1.0); Myelocytes # (M) 0.29 k/uL (0); Myelocytes % 2 %; Neutrophils % (M) 59 %; Nucleated Red Blood Cells 10 /100 WBC (0-0); Promyelocytes # (M) 0.15 k/uL (0); Promyelocytes % 1 %; Total Cells Counted 200; WBC 14.5 k/uL (3.8-10.6)
[2024-03-30 02:14] LABS: Stomatocytes Present
[2024-03-30] MEDS: HYDROmorphone 0.5 MG/0.5 ML SYRINGE IVP PRN (05:17)
[2024-03-30 06:05] LABS: Glucose,Whole Blood 300 mg/dL (70-110)
[2024-03-30] MEDS: PANTOPRAZOLE 40 MG TABLET PO SCH (06:40)
[2024-03-30] MEDS: SODIUM CHLORIDE 0.45% 1,000 ML IV SCH (06:57)
[2024-03-30] MEDS ORDERED: SODIUM CHLORIDE 0.9% 1,000 ML IV SCH (07:00)
[2024-03-30 07:54] LABS: Phosphorus 5.5 mg/dL (2.5-4.5); Uric Acid 8.9 mg/dL (3.7-7.4)
--- NOTE | 2024-03-30 09:19 | P.HPIM ---
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 Patient recently just received chemotherapy on March 11 and since then started having weakness, vomiting, and some diarrhea. Patient was recently admitted to the hospital in the first week of March 2024 for possible acute gastroenteritis and diarrhea, chemotherapy related. Patient was discharged home on 03/17/2024 and was scheduled to follow-up with Dr. Babin. However, patient's symptoms did not fully resolve. I spoke with patient's daughter over the phone and she reported that patient received 2 injections of filgrastim earlier this week on Monday and Monday. Afterwards, patient started developing bilateral lower extremity pain with difficulty ambulating. Patient has never had problems with walking before. Reported that patient's symptoms got worse with general weakness, poor oral intake, and was having significant pain in bilateral lower extremities. Patient was instructed to come to the ER for evaluation. Patient was seen at bedside. Denies any fever or chills. Does report left-sided abdominal pain and dysuria that has been going on for the past several weeks. Patient denies chest pain, shortness of breath, constipation, tingling or numbness sensation in upper or lower extremity. ED documentation reviewed. In the ED patient was treated with a bolus of normal saline, Dilaudid 0.5 mg IV x 1, Zofran 4 mg IV x 1, normal saline at 125 cc an hour, sodium bicarb 8.4% IV x 1, D5W with sodium bicarb at 125 cc an hour Vitals on admission temperature 97.4, pulse rate 102, respiratory rate 16, blood pressure 98/61, O2 sat 95% on nasal cannula at 4 L/min EKG independently interpreted as atrial fibrillation with rapid ventricular response with ventricular rate of 104 bpm, QTc interval 426 ms CXR shows no acute pulmonary process and cardiomegaly Labs on admission show WBC 14.5, hemoglobin 10.7, hematocrit 32, platelet 68, PT 16.6, INR 1.6, PTT 26.1, sodium 148, potassium 3.6, chloride 111, carbon dioxide 29, BUN 70, creatinine 2.20, glucose 300, lactic acid 1.6, uric acid 8.9, phosphorus 5.5, total bili 4.0, AST 288, ALT 170, alkaline phosphatase 210, creatinine kinase 1149, troponin 0.411 UA shows cloudy urine, negative for nitrate and negative for leukocyte esterase Review of systems: Pertinent positives and negatives as discussed in HPI, a complete review of systems was performed and all other systems are negative. PMH: Nasal cancer, diabetes mellitus, hypertension PSH: Appendectomy FMH: Mother had a history of breast cancer, father had a history of hypertension and cataracts, son had a history of tonsil cancer Allergies: Codeine and penicillins Social history: Tobacco: Former smoker Alcohol: No alcohol use Recreational drugs: No drug use Travel: No travel history Sick contacts: No sick contacts Physical examination: Vital signs reviewed General: nontoxic, no distress, appears at stated age Derm: warm, dry, intact Head: atraumatic, normocephalic, symmetric Eyes: EOMI, anicteric sclera Mouth: no lip lesion, mucus membranes moist Cardiovascular: S1 S2 reg, no murmur Lungs: CTA bilateral, no rhonchi, no rales, no accessory muscle use Abdominal: soft, non-tender to palpation Extremities: No cyanosis, clubbing, or pedal edema. Neuro: Alert, Gross neurological examination did not reveal any focal deficits. Bilateral upper and lower extremity muscle strength intact. Psych: well appearing, appropriate affect Assessment/Plan: Patient is a 83-year-old female with history of nasal cancer status post first chemotherapy on 03/11/2024 presenting to the emergency department with weakness, vomiting, diarrhea. Patient will be admitted to internal medicine service. Active: #. Elevated troponin, rule out ACS EKG interpreted as atrial fibrillation with rapid ventricular response with ventricular rate of 104 bpm, QTc interval 426 ms Troponin elevated at 0.471, 0.411 Most recent echo was done in February 2024 with estimated LVEF at 55 to 60% Cardiology has been consulted by ED Trend troponin Initiate cardiac monitoring #. Suspected tumor lysis syndrome, status post chemotherapy on 03/11/2024 #. Hyperuricemia Uric acid uptrending from 8.5 to 8.9 Phosphorus 5.5 Potassium 3.6 Avoid IV contrast and NSAIDs Consult nephrology Consult heme-onc Continue saline 0.45% at 150 cc an hour #. Rhabdomyolysis #. 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 Hyperphosphatemia Creatinine kinase 2391 initially now down to 1149 Phosphorus 5.5 Potassium 3.6 Nephrology has been consulted by ED Sodium bicarb 50 cc IV x 1 given in the ED Continue saline 0.45% at 150 cc an hour Monitor morning CMP Trend creatinine kinase #. Acute kidney injury Baseline creatinine of about 0.85 Creatinine uptrending from 1.76 to 2.2 this morning Continue saline 0.45% at 150 cc an hour Monitor morning CMP #. Hypernatremia Sodium 148 Continue saline 0.45% at 150 cc an hour Morning CMP #. Leukocytosis, likely secondary to acute stress WBC 14.5 Monitor morning CBC #. Normocytic anemia Hemoglobin 10.7 MCV 90.5 Monitor morning CBC #. Thrombocytopenia Platelet 68 Monitor morning CBC #. Hyperglycemia, history of diabetes Glucose 300 Continue with sliding scale insulin #. Transaminitis Elevated total bili 4.0, AST 288, ALT 170, alkaline phosphatase 210 Monitor CMP Chronic: #. GERD Restart omeprazole 40 mg daily #. Vitamin D deficiency Restart cholecalciferol 10 mcg daily #. Hypertension Hold metoprolol tartrate 25 mg daily in the setting of soft BP F: No restrictions E: Replete as needed N: Regular diet A: EMS DVT prophylaxis: Heparin 5000 units subcu every 12 hours The patient is admitted with an anticipated more than 2 midnight stay for e valuation of rhabdomyolysis CODE STATUS: No code Discussed with: Patient Anticipated discharge place: Home Past Medical History Past Medical History: Cancer, Diabetes Mellitus, Hypertension Additional Past Medical History / Comment(s): lymphoma History of Any Multi-Drug Resistant Organisms: None Reported Past Surgical History: Appendectomy Additional Past Surgical History / Comment(s): cateract both eyes, repaired AAA, Past Anesthesia/Blood Transfusion Reactions: No Reported Reaction Past Psychological History: No Psychological Hx Reported Smoking Status: Former smoker Past Alcohol Use History: None Reported Past Drug Use History: None Reported - Past Family History Mother Family Medical History: Cancer Additional Family Medical History / Comment(s): breast cancer Father Family Medical History: Hypertension Additional Family Medical History / Comment(s): cataracts Son(s) Family Medical History: Cancer Additional Family Medical History / Comment(s): tonsil cancer Medications and Allergies Home Medications Medication Instructions Recorded Confirmed Type Linagliptin [Tradjenta] 5 mg PO DAILY 03/15/24 03/29/24 History Metoprolol Tartrate [Lopressor] 25 mg PO DAILY 03/15/24 03/29/24 History Biotin [Uior-Iucl-Nirzg] 10,000 mcg PO DAILY 03/29/24 03/29/24 History Cephalexin [Keflex] 500 mg PO Q12H 03/29/24 03/29/24 History Cholecalciferol [Vitamin D3 (10 10 mcg PO DAILY 03/29/24 03/29/24 History Mcg = 400 Iu)] Omeprazole [PriLOSEC] 40 mg PO DAILY 03/29/24 03/29/24 History Ondansetron [Zofran] 4 - 8 mg PO Q4H PRN MDD 8 TABLETS 03/29/24 03/29/24 History Vit C/E/Zn/Coppr/Lutein/Zeaxan 1 cap PO HS 03/29/24 03/29/24 History [Preservision Areds 2 Softgel] Allergies Allergy/AdvReac Type Severity Reaction Status Date / Time codeine Allergy Rash/Hives Verified 03/29/24 16:47 Penicillins Allergy Rash/Hives Verified 03/29/24 16:47 Physical Exam Vitals: Vital Signs Temp Pulse Pulse Resp BP BP Pulse Ox 03/30/24 08:00 102 H 16 98/61 95 03/30/24 03:40 94 16 90/67 98 03/29/24 23:26 94 16 83/57 98 03/29/24 22:09 97.4 F L 89 16 86/61 95 03/29/24 21:12 96 12 92/69 96 03/29/24 20:00 99 14 85/67 03/29/24 19:30 98 14 91/57 95 03/29/24 18:42 96 14 96/63 91 L 03/29/24 17:10 99 14 99/67 90 L 03/29/24 16:40 98 14 80/59 03/29/24 16:35 97.5 F L 101 H 18 95/71 90 L 03/29/24 15:42 96 12 95 03/29/24 15:41 101 H 03/29/24 15:30 117 H 16 101/76 03/29/24 14:39 97.6 F 107 H 22 96/71 95 03/29/24 11:57 91 18 97/65 03/29/24 11:36 98.0 F 76 18 87/64 Intake and Output 03/29/24 03/30/24 03/30/24 22:59 06:59 14:59 Output Total 174 3 Balance -174 -3 Output: Urine 100 Post Void Residual 74 Stool 3 Other: Voiding Method External Catheter Weight 58.967 kg Results CBC & Chem 7: 03/30/24 01:25 03/30/24 01:25 Labs: Abnormal Lab Results - Last 24 Hours (Table) 03/29/24 03/29/24 03/29/24 Range/Units 13:03 13:03 13:03 WBC 17.0 H (3.8-10.6) k/uL RBC (3.80-5.40) m/uL Hgb 11.1 L (11.4-16.0) gm/dL Hct (34.0-46.0) % Plt Count 79 L D (150-450) k/uL Blast Cells % 5 H* % Neutrophils # (Manual) 11.20 H (1.3-7.7) k/uL Lymphocytes # (Manual) (1.0-4.8) k/uL Monocytes # (Manual) (0-1.0) k/uL Metamyelocytes # (Man) (0) k/uL Myelocytes # (Manual) (0) k/uL Promyelocytes # (Man) (0) k/uL Blast Cells # (Man) 0.85 H (0) k/uL Nucleated RBCs 6 H (0-0) /100 WBC PT 16.6 H (10.0-12.5) sec INR 1.6 H (<1.2) Sodium 150 H (137-145) mmol/L Chloride 112 H (98-107) mmol/L BUN 62 H (7-17) mg/dL Creatinine 1.76 H (0.52-1.04) mg/dL Glucose 110 H (74-99) mg/dL POC Glucose (mg/dL) (70-110) mg/dL Plasma Lactic Acid Zion (0.7-2.0) mmol/L Uric Acid (3.7-7.4) mg/dL Calcium 8.3 L (8.4-10.2) mg/dL Phosphorus (2.5-4.5) mg/dL Total Bilirubin 4.3 H (0.2-1.3) mg/dL AST 308 H (14-36) U/L ALT 181 H (4-34) U/L Alkaline Phosphatase 216 H (38-126) U/L Creatine Kinase (30-135) U/L Troponin I (0.000-0.034) ng/mL Total Protein 4.9 L (6.3-8.2) g/dL Albumin 2.4 L (3.5-5.0) g/dL Urine Appearance (Clear) Urine Protein (Negative) Urine Blood (Negative) Urine Bilirubin (Negative) Urine WBC (0-5) /hpf Urine Mucus (None) /hpf 03/29/24 03/29/24 03/29/24 Range/Units 13:03 13:03 13:03 WBC (3.8-10.6) k/uL RBC (3.80-5.40) m/uL Hgb (11.4-16.0) gm/dL Hct (34.0-46.0) % Plt Count (150-450) k/uL Blast Cells % % Neutrophils # (Manual) (1.3-7.7) k/uL Lymphocytes # (Manual) (1.0-4.8) k/uL Monocytes # (Manual) (0-1.0) k/uL Metamyelocytes # (Man) (0) k/uL Myelocytes # (Manual) (0) k/uL Promyelocytes # (Man) (0) k/uL Blast Cells # (Man) (0) k/uL Nucleated RBCs (0-0) /100 WBC PT (10.0-12.5) sec INR (<1.2) Sodium (137-145) mmol/L Chloride (98-107) mmol/L BUN (7-17) mg/dL Creatinine (0.52-1.04) mg/dL Glucose (74-99) mg/dL POC Glucose (mg/dL) (70-110) mg/dL Plasma Lactic Acid Zion 2.8 H* (0.7-2.0) mmol/L Uric Acid 8.5 H (3.7-7.4) mg/dL Calcium (8.4-10.2) mg/dL Phosphorus (2.5-4.5) mg/dL Total Bilirubin (0.2-1.3) mg/dL AST (14-36) U/L ALT (4-34) U/L Alkaline Phosphatase (38-126) U/L Creatine Kinase 2391 H* (30-135) U/L Troponin I 0.281 H* (0.000-0.034) ng/mL Total Protein (6.3-8.2) g/dL Albumin (3.5-5.0) g/dL Urine Appearance (Clear) Urine Protein (Negative) Urine Blood (Negative) Urine Bilirubin (Negative) Urine WBC (0-5) /hpf Urine Mucus (None) /hpf 03/29/24 03/29/24 03/29/24 Range/Units 15:38 15:46 19:35 WBC (3.8-10.6) k/uL RBC (3.80-5.40) m/uL Hgb (11.4-16.0) gm/dL Hct (34.0-46.0) % Plt Count (150-450) k/uL Blast Cells % % Neutrophils # (Manual) (1.3-7.7) k/uL Lymphocytes # (Manual) (1.0-4.8) k/uL Monocytes # (Manual) (0-1.0) k/uL Metamyelocytes # (Man) (0) k/uL Myelocytes # (Manual) (0) k/uL Promyelocytes # (Man) (0) k/uL Blast Cells # (Man) (0) k/uL Nucleated RBCs (0-0) /100 WBC PT (10.0-12.5) sec INR (<1.2) Sodium (137-145) mmol/L Chloride (98-107) mmol/L BUN (7-17) mg/dL Creatinine (0.52-1.04) mg/dL Glucose (74-99) mg/dL POC Glucose (mg/dL) (70-110) mg/dL Plasma Lactic Acid Zion 2.2 H* (0.7-2.0) mmol/L Uric Acid (3.7-7.4) mg/dL Calcium (8.4-10.2) mg/dL Phosphorus (2.5-4.5) mg/dL Total Bilirubin (0.2-1.3) mg/dL AST (14-36) U/L ALT (4-34) U/L Alkaline Phosphatase (38-126) U/L Creatine Kinase (30-135) U/L Troponin I 0.471 H* (0.000-0.034) ng/mL Total Protein (6.3-8.2) g/dL Albumin (3.5-5.0) g/dL Urine Appearance Cloudy H (Clear) Urine Protein 1+ H (Negative) Urine Blood Moderate H (Negative) Urine Bilirubin 1+ H (Negative) Urine WBC 7 H (0-5) /hpf Urine Mucus Few H (None) /hpf 03/29/24 03/30/24 03/30/24 Range/Units 20:14 01:25 :25 WBC 14.5 H (3.8-10.6) k/uL RBC 3.53 L (3.80-5.40) m/uL Hgb 10.7 L (11.4-16.0) gm/dL Hct 32.0 L (34.0-46.0) % Plt Count 68 L (150-450) k/uL Blast Cells % 3 H* % Neutrophils # (Manual) 11.40 H (1.3-7.7) k/uL Lymphocytes # (Manual) 0.73 L (1.0-4.8) k/uL Monocytes # (Manual) 1.31 H (0-1.0) k/uL Metamyelocytes # (Man) 0.29 H (0) k/uL Myelocytes # (Manual) 0.29 H (0) k/uL Promyelocytes # (Man) 0.15 H (0) k/uL Blast Cells # (Man) 0.44 H (0) k/uL Nucleated RBCs 10 H (0-0) /100 WBC PT (10.0-12.5) sec INR (<1.2) Sodium 148 H (137-145) mmol/L Chloride 111 H (98-107) mmol/L BUN 70 H (7-17) mg/dL Creatinine 2.20 H (0.52-1.04) mg/dL Glucose 212 H (74-99) mg/dL POC Glucose (mg/dL) 113 H (70-110) mg/dL Plasma Lactic Acid Zion (0.7-2.0) mmol/L Uric Acid 9.0 H (3.7-7.4) mg/dL Calcium 7.5 L (8.4-10.2) mg/dL Phosphorus (2.5-4.5) mg/dL Total Bilirubin 4.0 H (0.2-1.3) mg/dL AST 288 H (14-36) U/L ALT 170 H (4-34) U/L Alkaline Phosphatase 210 H (38-126) U/L Creatine Kinase (30-135) U/L Troponin I (0.000-0.034) ng/mL Total Protein 4.4 L (6.3-8.2) g/dL Albumin 2.1 L (3.5-5.0) g/dL Urine Appearance (Clear) Urine Protein (Negative) Urine Blood (Negative) Urine Bilirubin (Negative) Urine WBC (0-5) /hpf Urine Mucus (None) /hpf 03/30/24 03/30/24 03/30/24 Range/Units 01:25 06:03 06:53 WBC (3.8-10.6) k/uL RBC (3.80-5.40) m/uL Hgb (11.4-16.0) gm/dL Hct (34.0-46.0) % Plt Count (150-450) k/uL Blast Cells % % Neutrophils # (Manual) (1.3-7.7) k/uL Lymphocytes # (Manual) (1.0-4.8) k/uL Monocytes # (Manual) (0-1.0) k/uL Metamyelocytes # (Man) (0) k/uL Myelocytes # (Manual) (0) k/uL Promyelocytes # (Man) (0) k/uL Blast Cells # (Man) (0) k/uL Nucleated RBCs (0-0) /100 WBC PT (10.0-12.5) sec INR (<1.2) Sodium (137-145) mmol/L Chloride (98-107) mmol/L BUN (7-17) mg/dL Creatinine (0.52-1.04) mg/dL Glucose (74-99) mg/dL POC Glucose (mg/dL) 300 H (70-110) mg/dL Plasma Lactic Acid Zion (0.7-2.0) mmol/L Uric Acid 8.9 H (3.7-7.4) mg/dL Calcium (8.4-10.2) mg/dL Phosphorus 5.5 H (2.5-4.5) mg/dL Total Bilirubin (0.2-1.3) mg/dL AST (14-36) U/L ALT (4-34) U/L Alkaline Phosphatase (38-126) U/L Creatine Kinase 1149 H* (30-135) U/L Troponin I 0.411 H* (0.000-0.034) ng/mL Total Protein (6.3-8.2) g/dL Albumin (3.5-5.0) g/dL Urine Appearance (Clear) Urine Protein (Negative) Urine Blood (Negative) Urine Bilirubin (Negative) Urine WBC (0-5) /hpf Urine Mucus (None) /hpf Thrombosis Risk Factor Assmnt - Choose All That Apply Any of the Below Risk Factors Present?: No Other Risk Factors: Yes Each Risk Factor Represents 2 Points: Patient confined to bed Each Risk Factor Represents 3 Points: Age 75 years or older Thrombosis Risk Factor Assessment Total Risk Factor Score: 5 Thrombosis Risk Factor Assessment Level: High Risk
--- NOTE | 2024-03-30 10:06 | P.NPCON ---
History of Present Illness - Reason for Consult acute renal failure - History of Present Illness Reason for consultation: Acute kidney injury History of present illness: Patient is 83-year-old female seen in new consultation for acute kidney injury. Patient's baseline creatinine is near 1 from earlier this month. Creatinine 1.76 on admission and is 2.2 today. Patient has history of lymphoma and last received chemotherapy on March 11, 2024. Patient has been feeling progressively weak and was recently admitted here for dehydration. Patient's been having vomiting as well as loose bowel movements. Oral intake has been poor the last few days. Patient unable to stand or ambulate. Currently ma intained on bicarb drip. Sodium level 150 on admission and is 148 today. CK level was 2391 on admission and is 1149 today. Blood pressures have been low in the systolic 80s to 90s. I do not see any NSAIDs or diuretics on her home medication list. She denies gross hematuria or dysuria. Vital signs are stable. Blood pressure on the lower end. General: No acute distress. HEENT: Head exam is unremarkable. On nasal cannula. LUNGS: No audible rhonchi or wheezes. HEART: Rate and Rhythm are regular. ABDOMEN: Nontender. EXTREMITITES: No edema. Past Medical History Past Medical History: Cancer, Diabetes Mellitus, Hypertension Additional Past Medical History / Comment(s): lymphoma History of Any Multi-Drug Resistant Organisms: None Reported Past Surgical History: Appendectomy Additional Past Surgical History / Comment(s): cateract both eyes, repaired AAA, Past Anesthesia/Blood Transfusion Reactions: No Reported Reaction Past Psychological History: No Psychological Hx Reported Smoking Status: Former smoker Past Alcohol Use History: None Reported Past Drug Use History: None Reported - Past Family History Mother Family Medical History: Cancer Additional Family Medical History / Comment(s): breast cancer Father Family Medical History: Hypertension Additional Family Medical History / Comment(s): cataracts Son(s) Family Medical History: Cancer Additional Family Medical History / Comment(s): tonsil cancer Medications and Allergies Home Medications Medication Instructions Recorded Confirmed Type Linagliptin [Tradjenta] 5 mg PO DAILY 03/15/24 03/29/24 History Metoprolol Tartrate [Lopressor] 25 mg PO DAILY 03/15/24 03/29/24 History Biotin [Audt-Gvfl-Oende] 10,000 mcg PO DAILY 03/29/24 03/29/24 History Cephalexin [Keflex] 500 mg PO Q12H 03/29/24 03/29/24 History Cholecalciferol [Vitamin D3 (10 10 mcg PO DAILY 03/29/24 03/29/24 History Mcg = 400 Iu)] Omeprazole [PriLOSEC] 40 mg PO DAILY 03/29/24 03/29/24 History Ondansetron [Zofran] 4 - 8 mg PO Q4H PRN MDD 8 TABLETS 03/29/24 03/29/24 History Vit C/E/Zn/Coppr/Lutein/Zeaxan 1 cap PO HS 03/29/24 03/29/24 History [Preservision Areds 2 Softgel] Allergies Allergy/AdvReac Type Severity Reaction Status Date / Time codeine Allergy Rash/Hives Verified 03/29/24 16:47 Penicillins Allergy Rash/Hives Verified 03/29/24 16:47 Physical Exam Vitals: Vital Signs Temp Pulse Pulse Resp BP BP Pulse Ox 03/30/24 08:00 102 H 16 98/61 95 03/30/24 03:40 94 16 90/67 98 03/29/24 23:26 94 16 83/57 98 03/29/24 22:09 97.4 F L 89 16 86/61 95 03/29/24 21:12 96 12 92/69 96 03/29/24 20:00 99 14 85/67 03/29/24 19:30 98 14 91/57 95 03/29/24 18:42 96 14 96/63 91 L 03/29/24 17:10 99 14 99/67 90 L 03/29/24 16:40 98 14 80/59 03/29/24 16:35 97.5 F L 101 H 18 95/71 90 L 03/29/24 15:42 96 12 95 03/29/24 15:41 101 H 03/29/24 15:30 117 H 16 101/76 03/29/24 14:39 97.6 F 107 H 22 96/71 95 03/29/24 11:57 91 18 97/65 03/29/24 11:36 98.0 F 76 18 87/64 Intake and Output 03/29/24 03/30/24 03/30/24 22:59 06:59 14:59 Output Total 174 3 Balance -174 -3 Output: Urine 100 Post Void Residual 74 Stool 3 Other: Voiding Method External Catheter Weight 58.967 kg Results - Lab Results Most recent lab results Calcium 7.5 mg/dL (8.4-10.2) L 03/30/24 01:25 Phosphorus 5.5 mg/dL (2.5-4.5) H 03/30/24 06:53 Magnesium 2.2 mg/dL (1.6-2.3) 03/29/24 13:03 03/30/24 01:25 03/30/24 01:25 Assessment and Plan Plan: Assessment: 1. Acute kidney injury secondary to ATN secondary to hypotension, hypovolemia with concern for tumor lysis syndrome. Baseline creatinine near 1 and is up to 2.2 today. 2. Lymphoma status postchemotherapy March 11, 2024. 3. Hypernatremia from lack of oral water intake. 4. Mild rhabdomyolysis. CK levels trending down. 5. Concern for tumor lysis syndrome although potassium not elevated. Phosphorus and uric acid noted to be high. Plan: Change IV fluids to half-normal saline to be run at 150 cc an hour. Bolus with another 500 cc normal saline now. Check cortisol level. Add midodrine. Check bladder scan to rule out urinary retention. Check renal ultrasound. Avoid nephrotoxins. Continue to monitor renal function and urine output. Repeat labs in the morning. Case discussed with oncology. Rasburicase being considered. Thank you for the consultation. I will continue to follow the patient with you during her hospital stay.
--- NOTE | 2024-03-30 10:34 | P.CONS ---
History of Present Illness - Reason for Consult Consult date: 03/30/24 Nasopharyngeal T-cell lymphoma, weakness, JACKSON - History of Present Illness The patient is an 83-year-old white female, well-known to our service. Her oncology history is as follows: Patient is a 83 year old female with a history of lymphoma, who follows with Dr. Babin. She initially presented with enlarging right nasal mass for about 6 weeks duration, she had CT facial bone on 01/15/2024 which showed 3.9x2.4x2.9 cm mass along right nasal soft tissue extending into right nasal cavity. She was then referred to Dr Melendez, and initial biopsy was not diagnostic. 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 On 02/19/2024, she had a PET scan showed suspicious uptake in the mass seen on CT, otherwise negative. Ideally systemic chemo and radiation are considered, systemic therapy is L asparaginase based which could be associated with significant toxicities in elderly people,she is how ever,physically very fit and active. The other option would be just radiation therapy. After further discussion, current plan is 2 cycles of L asparaginase+oxaliplatin/gemzar followed by radiation and then 2 more cycles of chemo, if pt tolerates well. S/p cycle 1, day 1 of Oncaspar/oxaliplatin/gemzar on 03/11/24 The patient developed multiple side effects after her treatment, including nausea, diarrhea, progressive weakness and dehydration. She was admitted to the hospital in week 1 of 04/06. At that time she was also noted to have elevation in creatinine. The patient improved with aggressive supportive care and was able to be discharged. However she still remained quite compromised and was receiving IV hydration in the office. Despite that, there was not significant improvement. The patient's family had called the office stating that she was very weak, with poor oral intake, and was having significant pain in both lower extremities. She was directed to come to the ER where she was found to have evidence of JACKSON, as well as significant elevation of liver enzymes with bilirubi n in the 4 range. Subsequent labs also showed elevated CK. The patient's sodium was high, which is felt to be due to dehydration. Case was discussed in detail with the ER physician and subsequently with nephrology. The patient was admitted for further management. Review of Systems Constitutional: Reports fatigue, Reports poor appetite, Reports weakness, R eports weight loss Eyes: denies blurred vision, denies pain Ears: deny: decreased hearing, ear discharge, earache, tinnitus Ears, nose, mouth and throat: Reports as per HPI, Denies headache, Denies sore throat Cardiovascular: Reports decreased exercise tolerance Respiratory: Denies cough Gastrointestinal: Reports as per HPI Genitourinary: Denies dysuria, Denies hematuria Menstruation: Reports postmenopausal Musculoskeletal: Reports muscle weakness, Reports shooting leg pain Integumentary: Denies pruritus, Denies rash Neurological: Reports weakness Psychiatric: Denies anxiety, Denies depression Endocrine: Reports fatigue, Reports weight change Hematologic/Lymphatic: Reports as per HPI Past Medical History Past Medical History: Cancer, Diabetes Mellitus, Hypertension Additional Past Medical History / Comment(s): lymphoma History of Any Multi-Drug Resistant Organisms: None Reported Past Surgical History: Appendectomy Additional Past Surgical History / Comment(s): cateract both eyes, repaired AAA, Past Anesthesia/Blood Transfusion Reactions: No Reported Reaction Past Psychological History: No Psychological Hx Reported Smoking Status: Former smoker Past Alcohol Use History: None Reported Past Drug Use History: None Reported - Past Family History Mother Family Medical History: Cancer Additional Family Medical History / Comment(s): breast cancer Father Family Medical History: Hypertension Additional Family Medical History / Comment(s): cataracts Son(s) Family Medical History: Cancer Additional Family Medical History / Comment(s): tonsil cancer Medications and Allergies Home Medications Medication Instructions Recorded Confirmed Type Linagliptin [Tradjenta] 5 mg PO DAILY 03/15/24 03/29/24 History Metoprolol Tartrate [Lopressor] 25 mg PO DAILY 03/15/24 03/29/24 History Biotin [Yatb-Nomv-Rdnkp] 10,000 mcg PO DAILY 03/29/24 03/29/24 History Cephalexin [Keflex] 500 mg PO Q12H 03/29/24 03/29/24 History Cholecalciferol [Vitamin D3 (10 10 mcg PO DAILY 03/29/24 03/29/24 History Mcg = 400 Iu)] Omeprazole [PriLOSEC] 40 mg PO DAILY 03/29/24 03/29/24 History Ondansetron [Zofran] 4 - 8 mg PO Q4H PRN MDD 8 TABLETS 03/29/24 03/29/24 History Vit C/E/Zn/Coppr/Lutein/Zeaxan 1 cap PO HS 03/29/24 03/29/24 History [Preservision Areds 2 Softgel] Allergies Allergy/AdvReac Type Severity Reaction Status Date / Time codeine Allergy Rash/Hives Verified 03/29/24 16:47 Penicillins Allergy Rash/Hives Verified 03/29/24 16:47 Physical Exam Vitals: Vital Signs Temp Pulse Pulse Resp BP BP Pulse Ox 03/30/24 08:00 102 H 16 98/61 95 03/30/24 03:40 94 16 90/67 98 03/29/24 23:26 94 16 83/57 98 03/29/24 22:09 97.4 F L 89 16 86/61 95 03/29/24 21:12 96 12 92/69 96 03/29/24 20:00 99 14 85/67 03/29/24 19:30 98 14 91/57 95 03/29/24 18:42 96 14 96/63 91 L 03/29/24 17:10 99 14 99/67 90 L 03/29/24 16:40 98 14 80/59 03/29/24 16:35 97.5 F L 101 H 18 95/71 90 L 03/29/24 15:42 96 12 95 03/29/24 15:41 101 H 03/29/24 15:30 117 H 16 101/76 03/29/24 14:39 97.6 F 107 H 22 96/71 95 03/29/24 11:57 91 18 97/65 03/29/24 11:36 98.0 F 76 18 87/64 Intake and Output 03/29/24 03/30/24 03/30/24 22:59 06:59 14:59 Output Total 174 3 Balance -174 -3 Output: Urine 100 Post Void Residual 74 Stool 3 Other: Voiding Method External Catheter Weight 58.967 kg - Constitutional Patient very lethargic and drowsy, but arousable. Marked generalized weakness General appearance: no acute distress - EENT Mild prominence of right maxillary area Eyes: EOMI, PERRLA ENT: hearing grossly normal, normal oropharynx - Neck Neck: no lymphadenopathy Thyroid: bilateral: normal size - Respiratory Respiratory: bilateral: CTA - Cardiovascular Rhythm: regular Heart sounds: normal: S1, S2 - Gastrointestinal General gastrointestinal: decreased bowel sounds, soft Localized gastrointestinal: tender: diffuse (Mild to moderate) - Integumentary Integumentary: normal - Neurologic Neurologic: CNII-XII intact - Musculoskeletal Musculoskeletal: generalized weakness, strength equal bilaterally - Psychiatric Psychiatric: A&O x's 3, appropriate affect Results CBC & Chem 7: 03/30/24 01:25 03/30/24 01:25 Labs: Abnormal Lab Results - Last 24 Hours (Table) 03/29/24 03/29/24 03/29/24 Range/Units 13:03 13:03 13:03 WBC 17.0 H (3.8-10.6) k/uL RBC (3.80-5.40) m/uL Hgb 11.1 L (11.4-16.0) gm/dL Hct (34.0-46.0) % Plt Count 79 L D (150-450) k/uL Blast Cells % 5 H* % Neutrophils # (Manual) 11.20 H (1.3-7.7) k/uL Lymphocytes # (Manual) (1.0-4.8) k/uL Monocytes # (Manual) (0-1.0) k/uL Metamyelocytes # (Man) (0) k/uL Myelocytes # (Manual) (0) k/uL Promyelocytes # (Man) (0) k/uL Blast Cells # (Man) 0.85 H (0) k/uL Nucleated RBCs 6 H (0-0) /100 WBC PT 16.6 H (10.0-12.5) sec INR 1.6 H (<1.2) Sodium 150 H (137-145) mmol/L Chloride 112 H (98-107) mmol/L BUN 62 H (7-17) mg/dL Creatinine 1.76 H (0.52-1.04) mg/dL Glucose 110 H (74-99) mg/dL POC Glucose (mg/dL) (70-110) mg/dL Plasma Lactic Acid Zion (0.7-2.0) mmol/L Uric Acid (3.7-7.4) mg/dL Calcium 8.3 L (8.4-10.2) mg/dL Phosphorus (2.5-4.5) mg/dL Total Bilirubin 4.3 H (0.2-1.3) mg/dL AST 308 H (14-36) U/L ALT 181 H (4-34) U/L Alkaline Phosphatase 216 H (38-126) U/L Creatine Kinase (30-135) U/L Troponin I (0.000-0.034) ng/mL Total Protein 4.9 L (6.3-8.2) g/dL Albumin 2.4 L (3.5-5.0) g/dL Urine Appearance (Clear) Urine Protein (Negative) Urine Blood (Negative) Urine Bilirubin (Negative) Urine WBC (0-5) /hpf Urine Mucus (None) /hpf 03/29/24 03/29/24 03/29/24 Range/Units 13:03 13:03 13:03 WBC (3.8-10.6) k/uL RBC (3.80-5.40) m/uL Hgb (11.4-16.0) gm/dL Hct (34.0-46.0) % Plt Count (150-450) k/uL Blast Cells % % Neutrophils # (Manual) (1.3-7.7) k/uL Lymphocytes # (Manual) (1.0-4.8) k/uL Monocytes # (Manual) (0-1.0) k/uL Metamyelocytes # (Man) (0) k/uL Myelocytes # (Manual) (0) k/uL Promyelocytes # (Man) (0) k/uL Blast Cells # (Man) (0) k/uL Nucleated RBCs (0-0) /100 WBC PT (10.0-12.5) sec INR (<1.2) Sodium (137-145) mmol/L Chloride (98-107) mmol/L BUN (7-17) mg/dL Creatinine (0.52-1.04) mg/dL Glucose (74-99) mg/dL POC Glucose (mg/dL) (70-110) mg/dL Plasma Lactic Acid Zion 2.8 H* (0.7-2.0) mmol/L Uric Acid 8.5 H (3.7-7.4) mg/dL Calcium (8.4-10.2) mg/dL Phosphorus (2.5-4.5) mg/dL Total Bilirubin (0.2-1.3) mg/dL AST (14-36) U/L ALT (4-34) U/L Alkaline Phosphatase (38-126) U/L Creatine Kinase 2391 H* (30-135) U/L Troponin I 0.281 H* (0.000-0.034) ng/mL Total Protein (6.3-8.2) g/dL Albumin (3.5-5.0) g/dL Urine Appearance (Clear) Urine Protein (Negative) Urine Blood (Negative) Urine Bilirubin (Negative) Urine WBC (0-5) /hpf Urine Mucus (None) /hpf 03/29/24 03/29/24 03/29/24 Range/Units 15:38 15:46 19:35 WBC (3.8-10.6) k/uL RBC (3.80-5.40) m/uL Hgb (11.4-16.0) gm/dL Hct (34.0-46.0) % Plt Count (150-450) k/uL Blast Cells % % Neutrophils # (Manual) (1.3-7.7) k/uL Lymphocytes # (Manual) (1.0-4.8) k/uL Monocytes # (Manual) (0-1.0) k/uL Metamyelocytes # (Man) (0) k/uL Myelocytes # (Manual) (0) k/uL Promyelocytes # (Man) (0) k/uL Blast Cells # (Man) (0) k/uL Nucleated RBCs (0-0) /100 WBC PT (10.0-12.5) sec INR (<1.2) Sodium (137-145) mmol/L Chloride (98-107) mmol/L BUN (7-17) mg/dL Creatinine (0.52-1.04) mg/dL Glucose (74-99) mg/dL POC Glucose (mg/dL) (70-110) mg/dL Plasma Lactic Acid Zion 2.2 H* (0.7-2.0) mmol/L Uric Acid (3.7-7.4) mg/dL Calcium (8.4-10.2) mg/dL Phosphorus (2.5-4.5) mg/dL Total Bilirubin (0.2-1.3) mg/dL AST (14-36) U/L ALT (4-34) U/L Alkaline Phosphatase (38-126) U/L Creatine Kinase (30-135) U/L Troponin I 0.471 H* (0.000-0.034) ng/mL Total Protein (6.3-8.2) g/dL Albumin (3.5-5.0) g/dL Urine Appearance Cloudy H (Clear) Urine Protein 1+ H (Negative) Urine Blood Moderate H (Negative) Urine Bilirubin 1+ H (Negative) Urine WBC 7 H (0-5) /hpf Urine Mucus Few H (None) /hpf 03/29/24 03/30/24 03/30/24 Range/Units 20:14 01:25 :25 WBC 14.5 H (3.8-10.6) k/uL RBC 3.53 L (3.80-5.40) m/uL Hgb 10.7 L (11.4-16.0) gm/dL Hct 32.0 L (34.0-46.0) % Plt Count 68 L (150-450) k/uL Blast Cells % 3 H* % Neutrophils # (Manual) 11.40 H (1.3-7.7) k/uL Lymphocytes # (Manual) 0.73 L (1.0-4.8) k/uL Monocytes # (Manual) 1.31 H (0-1.0) k/uL Metamyelocytes # (Man) 0.29 H (0) k/uL Myelocytes # (Manual) 0.29 H (0) k/uL Promyelocytes # (Man) 0.15 H (0) k/uL Blast Cells # (Man) 0.44 H (0) k/uL Nucleated RBCs 10 H (0-0) /100 WBC PT (10.0-12.5) sec INR (<1.2) Sodium 148 H (137-145) mmol/L Chloride 111 H (98-107) mmol/L BUN 70 H (7-17) mg/dL Creatinine 2.20 H (0.52-1.04) mg/dL Glucose 212 H (74-99) mg/dL POC Glucose (mg/dL) 113 H (70-110) mg/dL Plasma Lactic Acid Zion (0.7-2.0) mmol/L Uric Acid 9.0 H (3.7-7.4) mg/dL Calcium 7.5 L (8.4-10.2) mg/dL Phosphorus (2.5-4.5) mg/dL Total Bilirubin 4.0 H (0.2-1.3) mg/dL AST 288 H (14-36) U/L ALT 170 H (4-34) U/L Alkaline Phosphatase 210 H (38-126) U/L Creatine Kinase (30-135) U/L Troponin I (0.000-0.034) ng/mL Total Protein 4.4 L (6.3-8.2) g/dL Albumin 2.1 L (3.5-5.0) g/dL Urine Appearance (Clear) Urine Protein (Negative) Urine Blood (Negative) Urine Bilirubin (Negative) Urine WBC (0-5) /hpf Urine Mucus (None) /hpf 03/30/24 03/30/24 03/30/24 Range/Units : 06:03 06:53 WBC (3.8-10.6) k/uL RBC (3.80-5.40) m/uL Hgb (11.4-16.0) gm/dL Hct (34.0-46.0) % Plt Count (150-450) k/uL Blast Cells % % Neutrophils # (Manual) (1.3-7.7) k/uL Lymphocytes # (Manual) (1.0-4.8) k/uL Monocytes # (Manual) (0-1.0) k/uL Metamyelocytes # (Man) (0) k/uL Myelocytes # (Manual) (0) k/uL Promyelocytes # (Man) (0) k/uL Blast Cells # (Man) (0) k/uL Nucleated RBCs (0-0) /100 WBC PT (10.0-12.5) sec INR (<1.2) Sodium (137-145) mmol/L Chloride (98-107) mmol/L BUN (7-17) mg/dL Creatinine (0.52-1.04) mg/dL Glucose (74-99) mg/dL POC Glucose (mg/dL) 300 H (70-110) mg/dL Plasma Lactic Acid Zion (0.7-2.0) mmol/L Uric Acid 8.9 H (3.7-7.4) mg/dL Calcium (8.4-10.2) mg/dL Phosphorus 5.5 H (2.5-4.5) mg/dL Total Bilirubin (0.2-1.3) mg/dL AST (14-36) U/L ALT (4-34) U/L Alkaline Phosphatase (38-126) U/L Creatine Kinase 1149 H* (30-135) U/L Troponin I 0.411 H* (0.000-0.034) ng/mL Total Protein (6.3-8.2) g/dL Albumin (3.5-5.0) g/dL Urine Appearance (Clear) Urine Protein (Negative) Urine Blood (Negative) Urine Bilirubin (Negative) Urine WBC (0-5) /hpf Urine Mucus (None) /hpf Chest x-ray: report reviewed Assessment and Plan (1) Generalized weakness Narrative/Plan: Has had persistent, marked generalized weakness, since her initial treatment. There was some partial improvement with supportive treatment, mainly hydration, and subsequent blood product transfusion. However the patient remained very compromised, and had some further decline with development of lower extremity pain and inability to walk. Oral intake has remained very diminished. -Appears to be due to ongoing effects of the chemotherapy, exacerbated by diminished oral intake and dehydration. There is also concern for more specific side effect related to the kidney/liver/muscles. -Aggressive supportive care with bedrest and hydration as well as close monitoring. Counts are currently adequate and do not require supplementation Current Visit: Yes Status: Acute Code(s): R53.1 - WEAKNESS SNOMED Code(s): 22033506 (2) Hyperbilirubinemia Narrative/Plan: Possible differentials include drug-induced hepatitis/shock liver due to hypotension from dehydration/as well as possibility of venoocclusive disease from PEG asparaginase. The patient is on aggressive hydration, with improvement in her blood pressure. Her last chemotherapy was more than 2 weeks ago. Check Doppler of the liver for evidence of any VOD. Continue to monitor Current Visit: Yes Status: Acute Code(s): E80.6 - OTHER DISORDERS OF BILIRUBIN METABOLISM SNOMED Code(s): 78754086 (3) Renal insufficiency Narrative/Plan: The patient had some improvement in her renal function at the time of her last visit, followed by subsequent worsening. As noted oral intake has remained quite diminished. Patient has been receiving hydration in the office. Discussed in detail with the nephrology service. Given the sodium level, it is felt that dehydration is the more likely cause. However direct medication effect and/or tumor lysis are also in the differential. The patient's uric acid was greater than 8, and she will be given a dose of rasburicase -IV fluid management per nephrology. Continue to monitor Current Visit: Yes Status: Acute Code(s): N28.9 - DISORDER OF KIDNEY AND URETER, UNSPECIFIED SNOMED Code(s): 295636642 (4) Rhabdomyolysis Narrative/Plan: This is felt to be moderate, and probably not the cause for her JACKSON, according to nephrology. With hydration CPKs are declining. The patient's lower extremity myalgias have improved subjectively although legs remain quite weak Current Visit: Yes Status: Acute Code(s): M62.82 - RHABDOMYOLYSIS SNOMED Code(s): 791214371 (5) T-cell lymphoma Narrative/Plan: The patient's tolerance of her treatment has been quite poor so far. The plan at this time was to hold any systemic therapy, and proceed with local radiation. Any treatment will be on hold, until her acute situation improves sufficiently Current Visit: No Status: Acute Priority: Medium Code(s): C85.90 - NON- HODGKIN LYMPHOMA, UNSPECIFIED, UNSPECIFIED SITE SNOMED Code(s): 554684678
--- NOTE | 2024-03-30 11:17 | US ---
EXAMINATION TYPE: US liver doppler DATE OF EXAM: 03/30/2024 COMPARISON: NONE CLINICAL INDICATION: Female, 83 years old with history of elevated liver enzymes, poss veno occlusive dz; Elevated LFT's EXAM MEASUREMENTS: Liver Length: 16.3 cm Gallbladder Wall: 0.2 cm CBD: 0.7 cm Right Kidney: See same day renal US RUQ ABDOMINAL ULTRASOUND Pancreas: Obscured by bowel gas Liver: Coarse echotexture- very difficult to penetrate Gallbladder: wnl, only visualized supine- pt immobile Evidence for sonographic Mckeon's sign: No CBD: wnl Right Kidney: See same day renal US LIVER DOPPLER ULTRASOUND Main Portal vein: Patent Flow direction: Hepatopetal Hepatic Artery: Patent IVC/Hepatic Veins: Unable to visualize due to liver difficult to penetrate IMPRESSION: No evidence for acute process. Patent main portal vein. Patent hepatic artery. [facility], , 03/30/2024 11:15 AM
--- NOTE | 2024-03-30 11:20 | US ---
EXAMINATION TYPE: US kidneys/renal and bladder DATE OF EXAM: 03/30/2024 COMPARISON: NONE CLINICAL INDICATION: Female, 83 years old with history of jackson; JACKSON TECHNIQUE: Grayscale imaging of the bilateral kidneys and urinary bladder: FINDINGS: EXAM MEASUREMENTS: Right Kidney: 9.7 x 4.1 x 4.6 cm Left Kidney: 10.5 x 5.0 x 4.4 cm Right Kidney: Cortical thinning, no evidence of hydro Left Kidney: Limited views due to pt immobility- cortical thinning, cystic structure mid/medial= 5.3 x 2.9 x 4.7 cm Bladder: Pt has cath There is no evidence for hydronephrosis at this point in time. No nephrolithiasis is seen. No melissa s are identified. The urinary bladder is anechoic. IMPRESSION: 1. No evidence for acute process. 2. Left renal cortical thinning and renal simple appearing cyst. [facility], , 03/30/2024 11:17 AM
[2024-03-30] MEDS: RASBURICASE 6 MG in SODIUM CHLORIDE 0.9% 46 ML IV ONE (11:30)
[2024-03-30 11:48] LABS: Glucose,Whole Blood 184 mg/dL (70-110)
[2024-03-30] MEDS: CHOLECALCIFEROL 10 MCG (400 IU) TABLET PO SCH (11:58)
[2024-03-30] MEDS: LINAGLIPTIN 5 MG TABLET PO SCH (11:58)
[2024-03-30 12:24] VITALS: BMI 20.9
[2024-03-30] MEDS: MIDODRINE 5 MG TAB PO SCH (12:27)
[2024-03-30] MEDS: SODIUM CHLORIDE 0.9% 500 ML 500 ML IV ONE (12:28)
[2024-03-30 17:17] LABS: Glucose,Whole Blood 157 mg/dL (70-110)
--- NOTE | 2024-03-30 19:58 | P.CRDCN ---
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 Since her chemotherapy she has been very weak. On admission she had evidence of elevated troponin for which cardiology was consulted. It appears that patient also has elevated CPK levels along with transaminitis concerning for tumor lysis syndrome status post chemotherapy. Admission Cardiac Labs: Admission labs shows sodium 148, BUN 70, creatinine 2.2, CPK 1149, troponin elevated at 0.41 with a flat pattern Admission ECG shows sinus rhythm with intermittent PACs. Prior cardiac testing: Echo from February 2024 shows an EF of 55 to 60%, mild and no calcification, mild MR mild aortic root dilatation REVIEW OF SYSTEMS: 14 point review of system is negative except what is mentioned above in HPI. PHYSICAL EXAMINATION: Lungs: Poor inspiratory effort, Heart: Regular rate and rhythm, S1-S2, , no murmur or rub. Abdomen: Soft nontender, positive bowel sounds. Extremities: No edema, intact distal pulses. Neuro: Alert, oritented, no focal deficits. Detailed neuro exam was not performed. ASSESSMENT: # Elevated troponin, less likely cardiac in etiology # Rhabdomyolysis # JACKSON # Transaminitis # T-cell lymphoma PLAN: Patient had a recent echocardiogram. No need to repeat at this moment Agree with IV hydration and supportive care for abnormalities and JACKSON Tu Valerio MD, [facility], [facility] Thank you for allowing [facility] to participate in this patient's care. Feel free to reach out in case of any followup questions. Past Medical History Past Medical History: Cancer, Diabetes Mellitus, Hypertension Additional Past Medical History / Comment(s): lymphoma History of Any Multi-Drug Resistant Organisms: None Reported Past Surgical History: Appendectomy Additional Past Surgical History / Comment(s): cateract both eyes, repaired AAA, Past Anesthesia/Blood Transfusion Reactions: No Reported Reaction Past Psychological History: No Psychological Hx Reported Smoking Status: Former smoker Past Alcohol Use History: None Reported Past Drug Use History: None Reported - Past Family History Mother Family Medical History: Cancer Additional Family Medical History / Comment(s): breast cancer Father Family Medical History: Hypertension Additional Family Medical History / Comment(s): cataracts Son(s) Family Medical History: Cancer Additional Family Medical History / Comment(s): tonsil cancer Medications and Allergies Home Medications Medication Instructions Recorded Confirmed Type Linagliptin [Tradjenta] 5 mg PO DAILY 03/15/24 03/29/24 History Metoprolol Tartrate [Lopressor] 25 mg PO DAILY 03/15/24 03/29/24 History Biotin [Hxfm-Vyzf-Jdpdu] 10,000 mcg PO DAILY 03/29/24 03/29/24 History Cephalexin [Keflex] 500 mg PO Q12H 03/29/24 03/29/24 History Cholecalciferol [Vitamin D3 (10 10 mcg PO DAILY 03/29/24 03/29/24 History Mcg = 400 Iu)] Omeprazole [PriLOSEC] 40 mg PO DAILY 03/29/24 03/29/24 History Ondansetron [Zofran] 4 - 8 mg PO Q4H PRN MDD 8 TABLETS 03/29/24 03/29/24 History Vit C/E/Zn/Coppr/Lutein/Zeaxan 1 cap PO HS 03/29/24 03/29/24 History [Preservision Areds 2 Softgel] Allergies Allergy/AdvReac Type Severity Reaction Status Date / Time codeine Allergy Rash/Hives Verified 03/29/24 16:47 Penicillins Allergy Rash/Hives Verified 03/29/24 16:47 Physical Exam Vitals: Vital Signs Temp Pulse Pulse Resp BP BP Pulse Ox 03/30/24 16:00 102 H 16 114/72 95 03/30/24 11:35 76 16 112/67 96 03/30/24 08:00 102 H 16 98/61 95 03/30/24 03:40 94 16 90/67 98 03/29/24 23:26 94 16 83/57 98 03/29/24 22:09 97.4 F L 89 16 86/61 95 03/29/24 21:12 96 12 92/69 96 03/29/24 20:00 99 14 85/67 Intake and Output 03/30/24 03/30/24 03/30/24 06:59 14:59 22:59 Intake Total 2400 Output Total 3 0 50 Balance -3 0 2350 Intake: Intake, IV Titration 2400 Amount Rasburicase 6 mg In 100 Sodium Chloride 0.9% 46 ml @ 100 mls/hr IV ONCE ONE Rx#:[id number] Sodium Chloride 0.45% 1, 1800 000 ml @ 150 mls/hr IV . Q6H40M [facility] Rx#:[id number] Sodium Chloride 0.9% 500 500 ml 500 ml @ 999 mls/hr IV .Q31M ONE Rx#:[id number] Output: Urine 0 Post Void Residual 50 Stool 3 0 Other: Voiding Method External Catheter External Catheter # Voids 0 # Bowel Movements 0 Weight 58.967 kg Results 03/30/24 01:25 03/30/24 01:25 Cardiac Enzymes 03/29/24 03/30/24 03/30/24 Range/Units 19:35 01:25 01:25 AST 288 H (14-36) U/L Troponin I 0.471 H* 0.411 H* (0.000-0.034) ng/mL CBC 03/30/24 Range/Units 01:25 WBC 14.5 H (3.8-10.6) k/uL RBC 3.53 L (3.80-5.40) m/uL Hgb 10.7 L (11.4-16.0) gm/dL Hct 32.0 L (34.0-46.0) % Plt Count 68 L (150-450) k/uL Comprehensive Metabolic Panel 03/30/24 Range/Units 01:25 Sodium 148 H (137-145) mmol/L Potassium 3.6 (3.5-5.1) mmol/L Chloride 111 H (98-107) mmol/L Carbon Dioxide 29 (22-30) mmol/L BUN 70 H (7-17) mg/dL Creatinine 2.20 H (0.52-1.04) mg/dL Glucose 212 H (74-99) mg/dL Calcium 7.5 L (8.4-10.2) mg/dL AST 288 H (14-36) U/L ALT 170 H (4-34) U/L Alkaline Phosphatase 210 H (38-126) U/L Total Protein 4.4 L (6.3-8.2) g/dL Albumin 2.1 L (3.5-5.0) g/dL Current Medications Generic Name Dose Route Start Last Admin Trade Name Freq PRN Reason Stop Dose Admin Acetaminophen 650 mg 03/29/24 19:04 Acetaminophen Tab 325 Mg Tab PO Q6HR PRN Fever and/ or Pain Cholecalciferol 10 mcg 03/30/24 09:00 03/30/24 11:58 Cholecalciferol 10 Mcg (400 Iu) Tablet PO Not Given DAILY ROSELIA Dextrose/Water 25 ml 03/29/24 19:01 Dextrose 50% Syringe 50 Ml IVP PER PROTOCOL PRN Hypoglycemia Protocol Dextrose/Water 50 ml 03/29/24 19:01 Dextrose 50% Syringe 50 Ml IVP PER PROTOCOL PRN Hypoglycemia Protocol Heparin Sodium (Porcine) 5,000 unit 03/30/24 21:00 Heparin Sodium,Porcine 5,000 Unit/Ml 1 Ml Vial SQ Q12HR ROSELIA Hydromorphone HCl 0.5 mg 03/30/24 04:06 03/30/24 16:48 Hydromorphone 0.5 Mg/0.5 Ml Syringe IVP 0.5 mg Q6HR PRN Administration Pain Sodium Chloride 1,000 mls @ 150 mls/hr 03/30/24 07:00 03/30/24 12:30 Saline 0.45% IV 150 mls/hr .Q6H40M ROSELIA Administration Insulin Aspart 0 unit 03/29/24 21:00 03/30/24 17:20 Insulin Aspart (Novolog) 100 Unit/Ml Vial SQ Not Given ACHS ROSELIA Protocol Linagliptin 5 mg 03/30/24 09:00 03/30/24 11:58 Linagliptin 5 Mg Tablet PO Not Given DAILY [facility] Midodrine 5 mg 03/30/24 12:30 03/30/24 16:27 Midodrine 5 Mg Tab PO Not Given AC-TID [facility] Ondansetron HCl 4 mg 03/29/24 19:03 03/30/24 04:07 Ondansetron 4 Mg/2 Ml Vial IVP 4 mg Q6HR PRN Administration Nausea And Vomiting Pantoprazole Sodium 40 mg 03/30/24 07:30 03/30/24 06:40 Pantoprazole 40 Mg Tablet PO Not Given DAILY@0730 [facility] Intake and Output 03/30/24 03/30/24 03/30/24 06:59 14:59 22:59 Intake Total 2400 Output Total 3 0 50 Balance -3 0 2350 Intake: Intake, IV Titration 2400 Amount Rasburicase 6 mg In 100 Sodium Chloride 0.9% 46 ml @ 100 mls/hr IV ONCE ONE Rx#:[id number] Sodium Chloride 0.45% 1, 1800 000 ml @ 150 mls/hr IV . Q6H40M [facility] Rx#:[id number] Sodium Chloride 0.9% 500 500 ml 500 ml @ 999 mls/hr IV .Q31M ONE Rx#:[id number] Output: Urine 0 Post Void Residual 50 Stool 3 0 Other: Voiding Method External Catheter External Catheter # Voids 0 # Bowel Movements 0 Weight 58.967 kg Patient Weight 03/31/24 06:59 Weight 58.967 kg 03/30/24 01:25 03/30/24 01:25
[2024-03-30] MEDS: HEPARIN SODIUM,PORCINE 5,000 UNIT/ML 1 ML VIAL SQ SCH (21:27)
[2024-03-31 07:36] LABS: HCT 32.7 % (34.0-46.0); HGB 10.6 gm/dL (11.4-16.0); Hypochromasia Slight; MCH 29.6 pg (25.0-35.0); MCHC 32.4 g/dL (31.0-37.0); MCV 91.4 fL (80.0-100.0); RBC 3.58 m/uL (3.80-5.40); RDW 15.4 % (11.5-15.5)
[2024-03-31 07:40] LABS: Platelet Count 63 k/uL (150-450)
[2024-03-31 07:51] LABS: ALT 172 U/L (4-34); AST 299 U/L (14-36); African American GFR (CKD) 24 (>60 ml/min/1.73 sqM); Alkaline Phosphatase 203 U/L (38-126); Anion Gap 5 mmol/L; Blood Urea Nitrogen 81 mg/dL (7-17); Calcium 6.7 mg/dL (8.4-10.2); Carbon Dioxide 31 mmol/L (22-30); Chloride 105 mmol/L (98-107); Glucose 149 mg/dL (74-99); Magnesium 1.9 mg/dL (1.6-2.3); Non-African American GFR(CKD) 21 (>60 ml/min/1.73 sqM); Phosphorus 5.4 mg/dL (2.5-4.5); Potassium 3.7 mmol/L (3.5-5.1); Sodium 141 mmol/L (137-145); Total Protein 4.3 g/dL (6.3-8.2); Uric Acid <0.5 mg/dL (3.7-7.4)
[2024-03-31 07:52] LABS: Creatine Kinase 1550 U/L (30-135)
[2024-03-31 08:31] LABS: Band Neutrophils % 10 %; Blast Cells # (M) 0.49 k/uL (0); Lymphocytes # (M) 0.66 k/uL (1.0-4.8); Metamyelocytes # (M) 1.31 k/uL (0); Metamyelocytes % 8 %; Monocytes # (M) 0.82 k/uL (0-1.0); Myelocytes # (M) 0.49 k/uL (0); Myelocytes % 3 %; Neutrophils % (M) 66 %; Nucleated Red Blood Cells 6 /100 WBC (0-0); Promyelocytes # (M) 0.33 k/uL (0); Promyelocytes % 2 %; Total Cells Counted 200; WBC 16.4 k/uL (3.8-10.6)
[2024-03-31 08:33] LABS: Poikilocytosis (M) Present; Polychromasia Present
[2024-03-31 08:34] LABS: Stomatocytes Present
[2024-03-31] MEDS: SODIUM CHLORIDE 0.9% 1,000 ML IV ONE (09:16)
--- NOTE | 2024-03-31 10:33 | P.PN ---
Subjective Patient is seen in follow-up for acute kidney injury. Renal function stable. Sodium level improved. Patient refusing oral medications. Also stating that she wants to . Blood pressure low this morning. Receiving fluid bolus. Vital signs are stable. General: No acute distress. HEENT: Head exam is unremarkable. On nasal cannula. LUNGS: No audible rhonchi or wheezes. HEART: Rate and Rhythm are regular. ABDOMEN: Nontender. EXTREMITITES: No edema. Objective - Vital Signs Vital signs: Vital Signs Temp 97.3 F L 03/30/24 23:46 Pulse 100 03/31/24 10:07 Resp 16 03/31/24 10:07 BP 103/70 03/31/24 10:07 Pulse Ox 90 L 03/31/24 10:07 FiO2 Intake & Output 03/30/24 03/31/24 03/31/24 18:59 06:59 18:59 Intake Total 2400 Output Total 50 0 Balance 2350 0 Weight 58.967 kg Intake: Intake, IV Titration 2400 Amount Rasburicase 6 mg In 100 Sodium Chloride 0.9% 46 ml @ 100 mls/hr IV ONCE ONE Rx#:[id number] Sodium Chloride 0.45% 1, 1800 000 ml @ 150 mls/hr IV . Q6H40M [facility] Rx#:[id number] Sodium Chloride 0.9% 500 500 ml 500 ml @ 999 mls/hr IV .Q31M ONE Rx#:[id number] Output: Urine 0 Post Void Residual 50 Stool 0 0 Other: Voiding Method External Catheter Diaper # Voids 0 1 # Bowel Movements 0 1 - Labs CBC & Chem 7: 03/31/24 07:24 03/31/24 07:24 Labs: Abnormal Lab Results - Last 24 Hours (Table) 03/30/24 03/30/24 03/30/24 Range/Units 06:53 11:46 17:16 WBC (3.8-10.6) k/uL RBC (3.80-5.40) m/uL Hgb (11.4-16.0) gm/dL Hct (34.0-46.0) % Plt Count (150-450) k/uL Blast Cells % % Neutrophils # (Manual) (1.3-7.7) k/uL Lymphocytes # (Manual) (1.0-4.8) k/uL Metamyelocytes # (Man) (0) k/uL Myelocytes # (Manual) (0) k/uL Promyelocytes # (Man) (0) k/uL Blast Cells # (Man) (0) k/uL Nucleated RBCs (0-0) /100 WBC Carbon Dioxide (22-30) mmol/L BUN (7-17) mg/dL Creatinine (0.52-1.04) mg/dL Glucose (74-99) mg/dL POC Glucose (mg/dL) 184 H 157 H (70-110) mg/dL Uric Acid (3.7-7.4) mg/dL Calcium (8.4-10.2) mg/dL Phosphorus (2.5-4.5) mg/dL Total Bilirubin (0.2-1.3) mg/dL AST (14-36) U/L ALT (4-34) U/L Alkaline Phosphatase (38-126) U/L Creatine Kinase (30-135) U/L Total Protein (6.3-8.2) g/dL Albumin (3.5-5.0) g/dL Cortisol 47.2 H (3.1-22.4) UG/DL 03/31/24 03/31/24 Range/Units 07:24 07:24 WBC 16.4 H (3.8-10.6) k/uL RBC 3.58 L (3.80-5.40) m/uL Hgb 10.6 L (11.4-16.0) gm/dL Hct 32.7 L (34.0-46.0) % Plt Count 63 L (150-450) k/uL Blast Cells % 3 H* % Neutrophils # (Manual) 12.40 H (1.3-7.7) k/uL Lymphocytes # (Manual) 0.66 L (1.0-4.8) k/uL Metamyelocytes # (Man) 1.31 H (0) k/uL Myelocytes # (Manual) 0.49 H (0) k/uL Promyelocytes # (Man) 0.33 H (0) k/uL Blast Cells # (Man) 0.49 H (0) k/uL Nucleated RBCs 6 H (0-0) /100 WBC Carbon Dioxide 31 H (22-30) mmol/L BUN 81 H (7-17) mg/dL Creatinine 2.13 H (0.52-1.04) mg/dL Glucose 149 H (74-99) mg/dL POC Glucose (mg/dL) (70-110) mg/dL Uric Acid <0.5 L (3.7-7.4) mg/dL Calcium 6.7 L (8.4-10.2) mg/dL Phosphorus 5.4 H (2.5-4.5) mg/dL Total Bilirubin 4.0 H (0.2-1.3) mg/dL AST 299 H (14-36) U/L ALT 172 H (4-34) U/L Alkaline Phosphatase 203 H (38-126) U/L Creatine Kinase 1550 H* (30-135) U/L Total Protein 4.3 L (6.3-8.2) g/dL Albumin 2.0 L (3.5-5.0) g/dL Cortisol (3.1-22.4) UG/DL Assessment and Plan Plan: Assessment: 1. Acute kidney injury secondary to ATN secondary to hypotension, hypovolemia with concern for tumor lysis syndrome. Baseline creatinine near 1 and stable at 2.13 today. No hydronephrosis noted on imaging. 2. Lymphoma status postchemotherapy March 11, 2024. 3. Hypernatremia from lack of oral water intake. Improved with hypotonic fluids. 4. Mild rhabdomyolysis. CK level 1550. 5. Concern for tumor lysis syndrome although potassium not elevated. Phosphorus and uric acid noted to be high. Status post rasburicase. Plan: Change fluids to normal saline. Currently receiving 1 L fluid bolus. Cortisol level not low. Refusing midodrine. Rodriguez catheter placed. Strict I's and O's. Avoid nephrotoxins. Continue to monitor renal function and urine output. Repeat labs in the morning. Blood pressure improving with fluid bolus. If becomes hypotensive again, will need vasopressor support. Case discussed with RN.
[2024-03-31 11:48] LABS: Glucose,Whole Blood 129 mg/dL (70-110)
[2024-03-31] MEDS: SODIUM CHLORIDE 0.9% 1,000 ML IV SCH (12:13)
[2024-03-31] MEDS ORDERED: ACETAMINOPHEN IV (For NPO) 1,000 MG in EMPTY BAG 1 BAG IVPB PRN (13:04)
[2024-03-31 16:30] LABS: Glucose,Whole Blood 141 mg/dL (70-110)
[2024-03-31 20:25] LABS: Glucose,Whole Blood 147 mg/dL (70-110)
--- NOTE | 2024-03-31 22:53 | P.PN ---
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 Since her chemotherapy she has been very weak. On admission she had evidence of elevated troponin for which cardiology was consulted. It appears that patient also has elevated CPK levels along with transaminitis concerning for tumor lysis syndrome status post chemotherapy. Admission Cardiac Labs: Admission labs shows sodium 148, BUN 70, creatinine 2.2, CPK 1149, troponin elevated at 0.41 with a flat pattern Admission ECG shows sinus rhythm with intermittent PACs. Prior cardiac testing: Echo from February 2024 shows an EF of 55 to 60%, mild and no calcification, mild MR mild aortic root dilatation Progress note 03/31/2024 Patient seen and examined at bedside this a.m. Patient appears to be peak and lethargic. Labs shows Hb 10.6, BUN 81, creatinine 2.13, TO6914 BP 101/56, heart rate 60 bpm, continues to be on IV fluids as per nephrology commendations. Cortisol levels were not low. PHYSICAL EXAMINATION: Lungs: Poor inspiratory effort, Heart: Regular rate and rhythm, S1-S2, , no murmur or rub. Abdomen: Soft nontender, positive bowel sounds. Extremities: No edema, intact distal pulses. Neuro: Alert, oritented, no focal deficits. Detailed neuro exam was not performed. ASSESSMENT: # Elevated troponin, less likely cardiac in etiology # Rhabdomyolysis # JACKSON # Transaminitis # T-cell lymphoma PLAN: Patient had a recent echocardiogram. No need to repeat at this moment Agree with IV hydration and supportive care for abnormalities and JACKSON No further cardiac intervention anticipated at this time. Cardiology team will sign off. Please reconsult us in case of any questions. Objective - Vital Signs Vital signs: Vital Signs Temp 97.3 F L 03/30/24 23:46 Pulse 59 L 03/31/24 20:00 Resp 18 03/31/24 21:51 BP 107/74 03/31/24 21:51 Pulse Ox 92 L 03/31/24 21:51 FiO2 Intake & Output 03/31/24 03/31/24 04/01/24 06:59 18:59 06:59 Intake Total 1000 Output Total 0 375 Balance 0 625 Intake: Intake, IV Titration 1000 Amount Sodium Chloride 0.9% 1, 1000 000 ml @ 999 mls/hr IV . Q1H1M ONE Rx#:[id number] Output: Urine 375 Stool 0 0 Other: Voiding Method Diaper Diaper # Voids 1 # Bowel Movements 1 - Labs CBC & Chem 7: 03/31/24 07:24 03/31/24 07:24 Labs: Abnormal Lab Results - Last 24 Hours (Table) 03/30/24 03/31/24 03/31/24 Range/Units 06:53 07:24 07:24 WBC 16.4 H (3.8-10.6) k/uL RBC 3.58 L (3.80-5.40) m/uL Hgb 10.6 L (11.4-16.0) gm/dL Hct 32.7 L (34.0-46.0) % Plt Count 63 L (150-450) k/uL Blast Cells % 3 H* % Neutrophils # (Manual) 12.40 H (1.3-7.7) k/uL Lymphocytes # (Manual) 0.66 L (1.0-4.8) k/uL Metamyelocytes # (Man) 1.31 H (0) k/uL Myelocytes # (Manual) 0.49 H (0) k/uL Promyelocytes # (Man) 0.33 H (0) k/uL Blast Cells # (Man) 0.49 H (0) k/uL Nucleated RBCs 6 H (0-0) /100 WBC Carbon Dioxide 31 H (22-30) mmol/L BUN 81 H (7-17) mg/dL Creatinine 2.13 H (0.52-1.04) mg/dL Glucose 149 H (74-99) mg/dL POC Glucose (mg/dL) (70-110) mg/dL Uric Acid <0.5 L (3.7-7.4) mg/dL Calcium 6.7 L (8.4-10.2) mg/dL Phosphorus 5.4 H (2.5-4.5) mg/dL Total Bilirubin 4.0 H (0.2-1.3) mg/dL AST 299 H (14-36) U/L ALT 172 H (4-34) U/L Alkaline Phosphatase 203 H (38-126) U/L Creatine Kinase 1550 H* (30-135) U/L Total Protein 4.3 L (6.3-8.2) g/dL Albumin 2.0 L (3.5-5.0) g/dL Cortisol 47.2 H (3.1-22.4) UG/DL 03/31/24 03/31/24 03/31/24 Range/Units 11:46 16:29 20:17 WBC (3.8-10.6) k/uL RBC (3.80-5.40) m/uL Hgb (11.4-16.0) gm/dL Hct (34.0-46.0) % Plt Count (150-450) k/uL Blast Cells % % Neutrophils # (Manual) (1.3-7.7) k/uL Lymphocytes # (Manual) (1.0-4.8) k/uL Metamyelocytes # (Man) (0) k/uL Myelocytes # (Manual) (0) k/uL Promyelocytes # (Man) (0) k/uL Blast Cells # (Man) (0) k/uL Nucleated RBCs (0-0) /100 WBC Carbon Dioxide (22-30) mmol/L BUN (7-17) mg/dL Creatinine (0.52-1.04) mg/dL Glucose (74-99) mg/dL POC Glucose (mg/dL) 129 H 141 H 147 H (70-110) mg/dL Uric Acid (3.7-7.4) mg/dL Calcium (8.4-10.2) mg/dL Phosphorus (2.5-4.5) mg/dL Total Bilirubin (0.2-1.3) mg/dL AST (14-36) U/L ALT (4-34) U/L Alkaline Phosphatase (38-126) U/L Creatine Kinase (30-135) U/L Total Protein (6.3-8.2) g/dL Albumin (3.5-5.0) g/dL Cortisol (3.1-22.4) UG/DL
--- NOTE | 2024-04-01 02:51 | P.PN ---
Subjective Progress Note Date: 03/31/24 Patient is a 83-year-old female with history of nasal cancer status post first chemotherapy on 03/11/2024 presenting to the emergency department with weakness, vomiting, diarrhea. Patient recently just received chemotherapy on March 11 and since then started having weakness, vomiting, and some diarrhea. Patient was recently admitted to the hospital in the first week of March 2024 for possible acute gastroenteritis and diarrhea, chemotherapy related. Patient was discharged home on 03/17/2024 and was scheduled to follow-up with Dr. Babin. However, patient's symptoms did not fully resolve. I spoke with patient's daughter over the phone and she reported that patient received 2 injections of filgrastim earlier this week on Monday and Monday. Afterwards, patient started developing bilateral lower extremity pain with difficulty ambulating. Patient has never had problems with walking before. Reported that patient's symptoms got worse with general weakness, poor oral intake, and was having significant pain in bilateral lower extremities. Patient was instructed to come to the ER for evaluation. Patient was seen at bedside. Denies any fever or chills. Does report left-sided abdominal pain and dysuria that has been going on for the past several weeks. Patient denies chest pain, shortness of breath, constipation, tingling or numbness sensation in upper or lower extremity. ED documentation reviewed. In the ED patient was treated with a bolus of normal saline, Dilaudid 0.5 mg IV x 1, Zofran 4 mg IV x 1, normal saline at 125 cc an hour, sodium bicarb 8.4% IV x 1, D5W with sodium bicarb at 125 cc an hour Vitals on admission temperature 97.4, pulse rate 102, respiratory rate 16, blood pressure 98/61, O2 sat 95% on nasal cannula at 4 L/min EKG independently interpreted as atrial fibrillation with rapid ventricular response with ventricular rate of 104 bpm, QTc interval 426 ms CXR shows no acute pulmonary process and cardiomegaly Labs on admission show WBC 14.5, hemoglobin 10.7, hematocrit 32, platelet 68, PT 16.6, INR 1.6, PTT 26.1, sodium 148, potassium 3.6, chloride 111, carbon dioxide 29, BUN 70, creatinine 2.20, glucose 300, lactic acid 1.6, uric acid 8.9, phosphorus 5.5, total bili 4.0, AST 288, ALT 170, alkaline phosphatase 210, creatinine kinase 1149, troponin 0.411 UA shows cloudy urine, negative for nitrate and negative for leukocyte esterase 03/31/2024 Patient is seen in follow-up today with nephrology and cardiology along with oncology following. Patient has been refusing medications along with treatment and reports she does not want any further interventions and wants to go home. Patient is no code and patient has been hypotensive and hyponatremic with elevated CK and troponin. Patient family initially refusing hospice as patient was continued on ongoing treatment and they were concerned it being due to recent chemotherapy. Patient has clinically declined and is also refusing to eat. LFTs and kidney functions remain elevated and sodium slightly improved at 141. Patient remains hypotensive requiring multiple fluid boluses with cardiology following. Overall prognosis is extremely poor and hospice would be appropriate in this patient. Review of systems: Pertinent positives and negatives as discussed in HPI, a complete review of systems was performed and all other systems are negative. PMH: Nasal cancer, diabetes mellitus, hypertension PSH: Appendectomy FMH: Mother had a history of breast cancer, father had a history of hypertension and cataracts, son had a history of tonsil cancer Allergies: Codeine and penicillins Social history: Tobacco: Former smoker Alcohol: No alcohol use Recreational drugs: No drug use Travel: No travel history Sick contacts: No sick contacts Physical exam: Gen: This is a 83-year-old female who is lethargic although arousable, alert and oriented, well-developed, elderly appearing, ill-appearing, pale HEENT: Head is atraumatic, normocephalic. Pupils equal, round. Sclerae is anicteric. NECK: Supple. No JVD. No lymphadenopathy. No thyromegaly. LUNGS: Diminished breath sounds bilaterally clear to auscultation. No wheezes or rhonchi. Faint crackles noted. No intercostal retractions. HEART: S1, S2 are muffled ABDOMEN: Soft. Thin. Hypoactive bowel sounds are present. No masses. No tenderness. EXTREMITIES: No pedal edema. No calf tenderness. NEUROLOGICAL: Patient is awake, alert and oriented x3. Cranial nerves 2 through 12 are grossly intact. Diffusely weak Assessment/Plan: Patient is a 83-year-old female with history of nasal cancer status post first chemotherapy on 03/11/2024 presenting to the emergency department with weakness, vomiting, diarrhea. Patient was admitted to internal medicine service. Active: #. Elevated troponin, ruled out ACS EKG interpreted as atrial fibrillation with rapid ventricular response with ventricular rate of 104 bpm, QTc interval 426 ms Troponin elevated at 0.471, 0.411 Most recent echo was done in February 2024 with estimated LVEF at 55 to 60% Cardiology following Trend troponin Initiate cardiac monitoring #. Suspected tumor lysis syndrome, status post chemotherapy on 03/11/2024 #. Hyperuricemia Uric acid uptrending from 8.5 to 8.9 Phosphorus 5.5 Potassium 3.6 Avoid IV contrast and NSAIDs Nephrology and hematology/oncology following Continue saline 0.45% at 150 cc an hour #. Rhabdomyolysis #. 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 Hyperphosphatemia Creatinine kinase 2391, elevated Phosphorus 5.5 Potassium 3.6 Continue saline 0.45% at 150 cc an hour Monitor morning CMP Trend creatinine kinase #. Acute kidney injury Baseline creatinine of about 0.85 Creatinine uptrending from 1.76 to 2.2 this morning Continue saline 0.45% at 150 cc an hour Monitor morning CMP #. Hypernatremia Sodium 148, 141 today and slightly improved Continue saline 0.45% at 150 cc an hour Morning CMP #. Leukocytosis, likely secondary to acute stress WBC 14.5 Monitor morning CBC #. Normocytic anemia Hemoglobin 10.7 MCV 90.5 Monitor morning CBC #. Thrombocytopenia Platelet 68 Monitor morning CBC #. Hyperglycemia, history of diabetes Glucose 300 Continue with sliding scale insulin #. Transaminitis Elevated total bili 4.0, AST 288, ALT 170, alkaline phosphatase 210 Monitor CMP Chronic: #. GERD Restart omeprazole 40 mg daily #. Vitamin D deficiency Restart cholecalciferol 10 mcg daily #. Hypertension Hold metoprolol tartrate 25 mg daily in the setting of soft BP F: No restrictions E: Replete as needed N: Regular diet A: EMS DVT prophylaxis: Heparin 5000 units subcu every 12 hours The patient is admitted with an anticipated more than 2 midnight stay for evaluation of rhabdomyolysis CODE STATUS: No code Discussed with: Patient Anticipated discharge place: Home possibly with hospice Plan: Patient has been refusing all care and does not want any further intervention and wants to go home. After lengthy discussion with family along with patient hospice informational order placed. Patient has been refusing to eat and does not want any medications. Repeat labs in a.m. Will await discussion with hospice and family regarding discharge planning and treatment plan moving forward. Overall prognosis is extremely guarded at this time The impression and plan of care has been dictated by Angelica Sung, Nurse Practitioner as directed. Dr. Hola MD I have performed a history and examination and MDM of this patient, discussed the same with the dictator, and agree with the dictator's assessment and plan as written ,documented as a scribe. Based on total visit time, I have performed more than 50% of the visit. Objective - Vital Signs Vital signs: Vital Signs Temp 97.3 F L 03/30/24 23:46 Pulse 98 03/31/24 04:17 Resp 10 L 03/31/24 04:17 BP 107/76 03/31/24 04:17 Pulse Ox 93 L 03/31/24 04:17 FiO2 Intake & Output 03/30/24 03/30/24 03/31/24 06:59 18:59 06:59 Intake Total 2400 Output Total 77 50 0 Balance -77 2350 0 Weight 58.967 kg 58.967 kg Intake: Intake, IV Titration 2400 Amount Rasburicase 6 mg In 100 Sodium Chloride 0.9% 46 ml @ 100 mls/hr IV ONCE ONE Rx#:[id number] Sodium Chloride 0.45% 1, 1800 000 ml @ 150 mls/hr IV . Q6H40M [facility] Rx#:[id number] Sodium Chloride 0.9% 500 500 ml 500 ml @ 999 mls/hr IV .Q31M ONE Rx#:[id number] Output: Urine 0 Post Void Residual 74 50 Stool 3 0 0 Other: Voiding Method External Catheter External Catheter Diaper # Voids 0 1 # Bowel Movements 0 1 - Labs CBC & Chem 7: 03/31/24 07:24 03/31/24 07:24 Labs: Abnormal Lab Results - Last 24 Hours (Table) 03/30/24 03/30/24 03/30/24 Range/Units 01: 06:03 06:53 POC Glucose (mg/dL) 300 H (70-110) mg/dL Hemoglobin A1c 6.9 H (<=6.0) % Uric Acid 8.9 H (3.7-7.4) mg/dL Phosphorus 5.5 H (2.5-4.5) mg/dL Creatine Kinase 1149 H* (30-135) U/L 03/30/24 03/30/24 Range/Units 11:46 17:16 POC Glucose (mg/dL) 184 H 157 H (70-110) mg/dL Hemoglobin A1c (<=6.0) % Uric Acid (3.7-7.4) mg/dL Phosphorus (2.5-4.5) mg/dL Creatine Kinase (30-135) U/L
[2024-04-01 06:11] VITALS: RESP 18
[2024-04-01 06:16] LABS: Glucose,Whole Blood 110 mg/dL (70-110)
[2024-04-01 07:01] LABS: African American GFR (CKD) 26 (>60 ml/min/1.73 sqM); Anion Gap 9 mmol/L; Blood Urea Nitrogen 79 mg/dL (7-17); Calcium 6.8 mg/dL (8.4-10.2); Carbon Dioxide 25 mmol/L (22-30); Chloride 110 mmol/L (98-107); Glucose 114 mg/dL (74-99); Magnesium 1.8 mg/dL (1.6-2.3); Non-African American GFR(CKD) 22 (>60 ml/min/1.73 sqM); Potassium 3.8 mmol/L (3.5-5.1); Sodium 144 mmol/L (137-145)
[2024-04-01 08:40] VITALS: TEMP 98
[2024-04-01 08:48] VITALS: BP 88/53; PULSE 97
--- NOTE | 2024-04-01 14:28 | P.DS ---
Providers Date of admission: 03/29/24 17:52 Expected date of discharge: 04/01/24 Attending physician: Dasia Foster Consults: 03/29/24 17:50 Consult Physician Urgent Consulting Provider: Victorino Mckeon Consult Reason/Comments: Rhabdomyolysis Do you want consulting provider notified?: Yes Consult Physician Urgent Consulting Provider: Donald Block Consult Reason/Comments: History of lymphoma, rhabdomyolysis Do you want consulting provider notified?: Yes Primary care physician: Erich Malone Bradley Hospital Course: Hospital course: Patient is a 83-year-old female with history of nasal cancer status post first chemotherapy on 03/11/2024 presented to the emergency department with weakness, vomiting, diarrhea. Patient recently just received chemotherapy on March 11 and since then started having weakness, vomiting, and some diarrhea. She was recently admitted to the hospital in the first week of March 2024 for possible acute gastroenteritis and diarrhea, chemotherapy related. Patient was discharged home on 03/17/2024 and was scheduled to follow-up with Dr. Babin. However patient's symptoms did not fully resolve. Spoke with patient's daughter over the phone and she reported that patient received 2 injections of filgrastim earlier this week on Monday and Monday. Afterwards, patient started developing bilateral lower extremity pain with difficulty ambulating. Patient has never had problems with walking before. Reported that patient's symptoms got worse with general weakness, poor oral intake, and was having significant pain in bilateral lower extremities. Patient was instructed to come to the ER for evaluation. Patient was seen at bedside. Denies any fever or chills. Does report left-sided abdominal pain and dysuria that has been going on for the past several weeks. Patient denies chest pain, shortness of breath, constipation, tingling or numbness sensation in upper or lower extremity. Initial EKG showed atrial fibrillation with rapid ventricular response with ventricular rate of 104 bpm, QTc interval 426 ms. Checks x-ray in ED shows no acute pulmonary process and cardiomegaly. Labs on admission show elevated BUN at 70 and creatinine 2.20, uric acid 8.9, phosphorus 5.5, total bili 4.0, AST 288, ALT 170, alkaline phosphatase 210, creatinine kinase 1149, troponin 0.411. Patient was admitted to internal medicine service being treated for tumor lysis syndrome and rhabdomyolysis. Nephrology and cardiology were consulted. Patient was seen again on 03/30/2024 and has been refusing medications along with treatment and reports she does not want any further interventions and wants to go home. Patient has clinically declined and is also refusing to eat. Family agreed to hospice on 04/01/2024 and patient meets inpatient criteria and will be signed onto [facility]. Physical examination at discharge: Gen: This is a 83-year-old female who is lethargic although arousable, alert and oriented, well-developed, elderly appearing, ill-appearing, pale HEENT: Head is atraumatic, normocephalic. Pupils equal, round. Sclerae is anicteric. NECK: Supple. No JVD. No lymphadenopathy. No thyromegaly. LUNGS: Diminished breath sounds bilaterally clear to auscultation. No wheezes or rhonchi. Faint crackles noted. No intercostal retractions. HEART: S1, S2 are muffled ABDOMEN: Soft. Thin. Hypoactive bowel sounds are present. No masses. No tenderness. EXTREMITIES: No pedal edema. No calf tenderness. NEUROLOGICAL: Patient is awake, alert and oriented x3. Cranial nerves 2 through 12 are grossly intact. Diffusely weak Patient Condition at Discharge: Stable Plan - Discharge Summary New Discharge Prescriptions: No Action Linagliptin [Tradjenta] 5 mg PO DAILY Metoprolol Tartrate [Lopressor] 25 mg PO DAILY Cholecalciferol [Vitamin D3 (10 Mcg = 400 Iu)] 10 mcg PO DAILY Biotin [Ezqt-Ebkf-Mdjgw] 10,000 mcg PO DAILY Ondansetron [Zofran] 4 - 8 mg PO Q4H PRN MDD 8 TABLETS PRN Reason: Nausea Cephalexin [Keflex] 500 mg PO Q12H Vit C/E/Zn/Coppr/Lutein/Zeaxan [Preservision Areds 2 Softgel] 1 cap PO HS Omeprazole [PriLOSEC] 40 mg PO DAILY Discharge Medication List Linagliptin [Tradjenta] 5 mg PO DAILY 03/15/24 [History] Metoprolol Tartrate [Lopressor] 25 mg PO DAILY 03/15/24 [History] Biotin [Mvqn-Jnjv-Nczgq] 10,000 mcg PO DAILY 03/29/24 [History] Cephalexin [Keflex] 500 mg PO Q12H 03/29/24 [History] Cholecalciferol [Vitamin D3 (10 Mcg = 400 Iu)] 10 mcg PO DAILY 03/29/24 [History] Omeprazole [PriLOSEC] 40 mg PO DAILY 03/29/24 [History] Ondansetron [Zofran] 4 - 8 mg PO Q4H PRN MDD 8 TABLETS 03/29/24 [History] Vit C/E/Zn/Coppr/Lutein/Zeaxan [Preservision Areds 2 Softgel] 1 cap PO HS 03/29/24 [History] Follow up Appointment(s)/Referral(s): Erich Cortes [Primary Care Provider] - 1-2 days Activity/Diet/Wound Care/Special Instructions: [facility] hosp[facility] Discharge Disposition: HOME WITH HOSPICE
--- NOTE | 2024-04-03 13:49 | CDI ---
Documentation Clarification Form Date: 04/03/2024 01:32:53 PM From: Kim Villagran Phone: Admit Date: 03/29/2024 05:52:00 PM Patient Name: Indy Blum Visit Number: [id number] Discharge Date: 04/01/2024 10:29:00 AM ATTENTION: The Clinical Documentation Specialists (CDI) and [facility] Coding Staff appreciate your assistance in clarifying documentation. Please respond to the clarification below the line at the bottom and electronically sign. The CDI & [facility] Coding staff will review the response and follow-up if needed. Please note: Queries are made part of the Legal Health Record. If you have any questions, please contact the author of this message via ITS. Doctor/Provider: Victorino Mckeon Rhabdomyolysis is documented in consult note on 03/30. Additional clarification regarding the type of rhabdomyolysis is requested. 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 Patient recently just receivedchemotherapyon March 11 and since then started havingweakness,vomiting, and somediarrhea. Clinical Indicators: H/P on 03/30 The patient is admitted with an anticipated more than 2 midnight stay for evaluationofrhabdomyolysis Labs on admission show WBC 14.5, hemoglobin 10.7, hematocrit 32, platelet 68,PT16.6, INR 1.6, PTT 26.1, sodium 148, potassium 3.6, chloride 111, carbon dioxide 29, BUN 70, creatinine 2.20, glucose 300, lactic acid 1.6, uric acid 8.9, phosphorus 5.5, total bili 4.0, AST 288, ALT 170, alkaline phosphatase 210, creatinine kinase 1149, troponin 0.411 Consult note on 03/30 -Mildrhabdomyolysis.CK levels trending down. Pn on 03/31 -Patient seen and examined at bedside this a.m. Patient appears to be peak and lethargic. Labs shows Hb 10.6, BUN 81, creatinine 2.13, [id number] BP 101/56, heart rate 60 bpm, continues to be on IV fluids as per nephrology commendations. Cortisol levels were not low. DS on 04/01 -Patient was admitted to internal medicine service being treated fortumor lysis syndromeandrhabdomyolysis. Nephrology and cardiology were consulted. Patient was seen again on03/30/2024nd has been refusing medications along with treatment and reports she does not want any further interventions and wants to go home. Treatment: IVhydration and supportive care for abnormalities and [place] Please clarify the type of rhabdomyolysis, if known: [ ] Traumatic rhabdomyolysis due to fall [ x] Traumatic rhabdomyolysis due to prolonged immobility [ ] Non traumatic rhabdomyolysis due to medication (please specify) [ ] Non traumatic rhabdomyolysis due to infection (please specify) [ ] Other, please specify [ ] Unable to Determine (Template Last Revised: May 2020) MTDD
== END 2024-04-01 10:29 | disposition hospice, inpatient (51) | DRG 564 ==
LOC: EC 11:35 → 3SCARD 17:52
PROVIDERS: ADMIT Hospitalist; ATTEND Hospitalist
DX: T79.6XXA Traumatic ischemia of muscle, initial encounter (principal); E88.3 Tumor lysis syndrome; N17.0 Acute kidney failure with tubular necrosis; C84.40 Peripheral T-cell lymphoma, not elsewhere classified, unspecified site; D69.6 Thrombocytopenia, unspecified; E87.0 Hyperosmolality and hypernatremia; E87.1 Hypo-osmolality and hyponatremia; E83.39 Other disorders of phosphorus metabolism; E86.0 Dehydration; I48.91 Unspecified atrial fibrillation; I10 Essential (primary) hypertension; E11.65 Type 2 diabetes mellitus with hyperglycemia; D63.0 Anemia in neoplastic disease; Z68.1 Body mass index [BMI] 19.9 or less, adult; R62.7 Adult failure to thrive; R74.01 Elevation of levels of liver transaminase levels; E86.1 Hypovolemia; E80.6 Other disorders of bilirubin metabolism; I95.9 Hypotension, unspecified; E79.0 Hyperuricemia without signs of inflammatory arthritis and tophaceous disease; K21.9 Gastro-esophageal reflux disease without esophagitis; Z79.899 Other long term (current) drug therapy; Z87.891 Personal history of nicotine dependence; Z88.0 Allergy status to penicillin; Z88.5 Allergy status to narcotic agent; Z92.21 Personal history of antineoplastic chemotherapy; Z79.84 Long term (current) use of oral hypoglycemic drugs
CPT/HCPCS: 36415; 71046; 76705; 76770; 80048; 80053; 81001; 82533; 82550; 83036; 83605; 83735; 84100; 84484; 84550; 85025; 85384; 85610; 85730; 93005; 93976; 96361; 96365; 96366; 96375; 99285

== ENCOUNTER 2024-04-01 09:51 | Inpatient (IN) | payer MEDICAID, MEDICARE ==
[2024-04-01] MEDS ORDERED: MORPHINE SULFATE 4 MG/ML SYRINGE IV PRN (09:56)
[2024-04-01] MEDS ORDERED: ONDANSETRON 4 MG/2 ML VIAL IVP PRN (09:56)
[2024-04-01] MEDS ORDERED: ACETAMINOPHEN SUPPOSITORY 650 MG SUPP RECTAL PRN (09:56)
[2024-04-01] MEDS ORDERED: ATROPINE OPHTH SOLN 1% 5ML BTL SUBLINGUAL PRN (09:56)
[2024-04-01] MEDS ORDERED: GLYCOPYRROLATE 0.2 MG/ML 2 ML VIAL IVP PRN (09:56)
[2024-04-01] MEDS ORDERED: DRY MOUTH SPRAY 59 SPRAY/59 ML SPRAY MUCOUS MEM PRN (09:56)
[2024-04-01] MEDS: MORPHINE SULFATE (100 MG/2 ML) 100 MG in SODIUM CHLORIDE 0.9% 100 ML IV SCH (10:45)
[2024-04-01] MEDS: SCOPOLAMINE 1 MG/72 HR PATCH TRANSDERM SCH (10:45)
[2024-04-01 11:41] LABS: Glucose,Whole Blood 125 mg/dL (70-110)
[2024-04-01] MEDS: LORazepam 2 MG/ML INJ IV PRN (13:25)
--- NOTE | 2024-04-01 14:33 | P.HPIM ---
History of Present Illness H&P Date: 04/01/24 Patient is a 83-year-old female with history of nasal cancer status post first chemotherapy on 03/11/2024 presenting to the emergency department with weakness, vomiting, diarrhea. Patient recently just received chemotherapy on March 11 and since then started having weakness, vomiting, and some diarrhea. Patient was recently admitted to the hospital in the first week of March 2024 for possible acute gastroenteritis and diarrhea, chemotherapy related. Patient was discharged home on 03/17/2024 and was scheduled to follow-up with Dr. Babin. However, patient's symptoms did not fully resolve. I spoke with patient's daughter over the phone and she reported that patient received 2 injections of filgrastim earlier this week on Monday and Monday. Afterwards, patient started developing bilateral lower extremity pain with difficulty ambulating. Patient has never had problems with walking before. Reported that patient's symptoms got worse with general weakness, poor oral intake, and was having significant pain in bilateral lower extremities. Patient was instructed to come to the ER for evaluation. Patient was seen at bedside. Denies any fever or chills. Does report left-sided abdominal pain and dysuria that has been going on for the past several weeks. Patient denies chest pain, shortness of breath, constipation, tingling or numbness sensation in upper or lower extremity. Patient's clinical status worsened on and as patient has been refusing medications along with treatment reports she does not want any further interventions and wants to go home. Patient's family agreed to hospice on 04/01/2024. Patient meets inpatient criteria and will be signed on to [facility] hospice. ED documentation reviewed. In the ED patient was treated with a bolus of normal saline, Dilaudid 0.5 mg IV x 1, Zofran 4 mg IV x 1, normal saline at 125 cc an hour, sodium bicarb 8.4% IV x 1, D5W with sodium bicarb at 125 cc an hour Vitals on admission temperature 97.4, pulse rate 102, respiratory rate 16, blood pressure 98/61, O2 sat 95% on nasal cannula at 4 L/min EKG independently interpreted as atrial fibrillation with rapid ventricular response with ventricular rate of 104 bpm, QTc interval 426 ms CXR shows no acute pulmonary process and cardiomegaly Labs on admission show WBC 14.5, hemoglobin 10.7, hematocrit 32, platelet 68, PT 16.6, INR 1.6, PTT 26.1, sodium 148, potassium 3.6, chloride 111, carbon dioxide 29, BUN 70, creatinine 2.20, glucose 300, lactic acid 1.6, uric acid 8.9, phosphorus 5.5, total bili 4.0, AST 288, ALT 170, alkaline phosphatase 210, creatinine kinase 1149, troponin 0.411 UA shows cloudy urine, negative for nitrate and negative for leukocyte esterase Review of systems: Pertinent positives and negatives as discussed in HPI, a complete review of systems was performed and all other systems are negative. PMH: Nasal cancer, diabetes mellitus, hypertension PSH: Appendectomy FMH: Mother had a history of breast cancer, father had a history of hypertension and cataracts, son had a history of tonsil cancer Allergies: Codeine and penicillins Social history: Tobacco: Former smoker Alcohol: No alcohol use Recreational drugs: No drug use Travel: No travel history Sick contacts: No sick contacts Physical examination: Gen: This is a 83-year-old female who is lethargic although arousable, alert and oriented, well-developed, elderly appearing, ill-appearing, pale HEENT: Head is atraumatic, normocephalic. Pupils equal, round. Sclerae is anicteric. NECK: Supple. No JVD. No lymphadenopathy. No thyromegaly. LUNGS: Diminished breath sounds bilaterally clear to auscultation. No wheezes or rhonchi. Faint crackles noted. No intercostal retractions. HEART: S1, S2 are muffled ABDOMEN: Soft. Thin. Hypoactive bowel sounds are present. No masses. No tenderness. EXTREMITIES: No pedal edema. No calf tenderness. NEUROLOGICAL: Patient is awake, alert and oriented x3. Cranial nerves 2 through 12 are grossly intact. Diffusely weak Assessment/Plan: Patient is a 83-year-old female with history of nasal cancer status post first chemotherapy on 03/11/2024 presenting to the emergency department with weakness, vomiting, diarrhea. Patient will be admitted to internal medicine service. Active: #. Hospice patient Family is now agreeable to hospice and meets inpatient criteria and will be signed on to [facility] #. Elevated troponin, rule out ACS #. Suspected tumor lysis syndrome, status post chemotherapy on 03/11/2024 #. Hyperuricemia #. Rhabdomyolysis #. 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 Hyperphosphatemia #. Acute kidney injury #. Hypernatremia #. Leukocytosis, likely secondary to acute stress #. Normocytic anemia #. Thrombocytopenia #. Hyperglycemia, history of diabetes #. Transaminitis Chronic: #. GERD #. Vitamin D deficiency #. Hypertension F: No restrictions E: Replete as needed N: Regular diet A: EMS DVT prophylaxis: Heparin 5000 units subcu every 12 hours The patient is admitted with an anticipated more than 2 midnight stay for evaluation of rhabdomyolysis CODE STATUS: No code Discussed with: Patient Anticipated discharge place: Home Past Medical History Past Medical History: Cancer, Diabetes Mellitus, Hypertension Additional Past Medical History / Comment(s): lymphoma History of Any Multi-Drug Resistant Organisms: None Reported Past Surgical History: Appendectomy Additional Past Surgical History / Comment(s): cateract both eyes, repaired AAA, Past Anesthesia/Blood Transfusion Reactions: No Reported Reaction Past Psychological History: No Psychological Hx Reported Smoking Status: Former smoker Past Alcohol Use History: None Reported Past Drug Use History: None Reported - Past Family History Mother Family Medical History: Cancer Additional Family Medical History / Comment(s): breast cancer Father Family Medical History: Hypertension Additional Family Medical History / Comment(s): cataracts Son(s) Family Medical History: Cancer Additional Family Medical History / Comment(s): tonsil cancer Medications and Allergies Home Medications Medication Instructions Recorded Confirmed Type Linagliptin [Tradjenta] 5 mg PO DAILY 03/15/24 04/01/24 History Metoprolol Tartrate [Lopressor] 25 mg PO DAILY 03/15/24 04/01/24 History Biotin [Ryxl-Ptfe-Fzhox] 10,000 mcg PO DAILY 03/29/24 04/01/24 History Cephalexin [Keflex] 500 mg PO Q12H 03/29/24 04/01/24 History Cholecalciferol [Vitamin D3 (10 10 mcg PO DAILY 03/29/24 04/01/24 History Mcg = 400 Iu)] Omeprazole [PriLOSEC] 40 mg PO DAILY 03/29/24 04/01/24 History Ondansetron [Zofran] 4 - 8 mg PO Q4H PRN MDD 8 TABLETS 03/29/24 04/01/24 History Vit C/E/Zn/Coppr/Lutein/Zeaxan 1 cap PO HS 03/29/24 04/01/24 History [Preservision Areds 2 Softgel] Allergies Allergy/AdvReac Type Severity Reaction Status Date / Time codeine Allergy Rash/Hives Verified 04/01/24 10:45 Penicillins Allergy Rash/Hives Verified 04/01/24 10:45 Physical Exam Vitals: Vital Signs Pulse Resp 04/01/24 13:13 100 20 04/01/24 12:22 98 18 04/01/24 10:55 90 17 Intake and Output 03/31/24 04/01/24 04/01/24 22:59 06:59 14:59 Intake Total 6.664 Balance 6.664 Intake: Intake, IV Titration 6.664 Amount Morphine Sulfate (100 mg/ 6.664 2 ml) 100 mg In Sodium Chloride 0.9% 100 ml @ 1 MG/HR 1.02 mls/hr IV . Q24H [facility] Rx#:[id number] Other: Voiding Method Indwelling Catheter Weight 50 kg Results Labs: Abnormal Lab Results - Last 24 Hours (Table) 04/01/24 Range/Units 11:39 POC Glucose (mg/dL) 125 H (70-110) mg/dL
[2024-04-01 23:11] VITALS: PULSE 107; RESP 10
== END 2024-04-01 22:33 | disposition expired | DRG 951 ==
LOC: 3SCARD 10:32
PROVIDERS: ADMIT Hospitalist; ATTEND Hospitalist
DX: Z51.5 Encounter for palliative care (principal); M62.82 Rhabdomyolysis; E87.0 Hyperosmolality and hypernatremia; N17.9 Acute kidney failure, unspecified; E79.0 Hyperuricemia without signs of inflammatory arthritis and tophaceous disease; K21.9 Gastro-esophageal reflux disease without esophagitis; E55.9 Vitamin D deficiency, unspecified; D64.9 Anemia, unspecified; D69.6 Thrombocytopenia, unspecified; D72.829 Elevated white blood cell count, unspecified; F32.9 Major depressive disorder, single episode, unspecified; I10 Essential (primary) hypertension; I48.91 Unspecified atrial fibrillation; Z79.84 Long term (current) use of oral hypoglycemic drugs; Z79.899 Other long term (current) drug therapy; Z82.49 Family history of ischemic heart disease and other diseases of the circulatory system; Z85.72 Personal history of non-Hodgkin lymphomas; Z85.22 Personal history of malignant neoplasm of nasal cavities, middle ear, and accessory sinuses; Z87.891 Personal history of nicotine dependence; Z88.5 Allergy status to narcotic agent; Z88.0 Allergy status to penicillin; Z87.19 Personal history of other diseases of the digestive system; Z98.42 Cataract extraction status, left eye; Z98.41 Cataract extraction status, right eye